=== PATIENT | female | born 1985 | race African-American/Black ===

== ENCOUNTER 2016-03-03 13:08 | Emergency (ER) | payer MEDICARE, MEDICAID ==
[~2016-03-03] VITALS: Ht 170.2 cm; Wt 100.0 kg
[~2016-03-03 13:08] MED LIST: AMLO10TA2 PO; BENT20TA PO; BUTATAB6 PO; CARV12.5 PO; DEPA500T PO; DIPH1TAB36 PO; FURO1TAB62 PO; HYDR-3366 PO; LEVE500 PO; LOMO2.5T PO; LUNE1TAB6 PO; MYCO500T PO; OMEP20TA PO; POTA-245 PO; PRED5TAB PO; PROM1SUP7 RECTAL; PROM50TA PO; TACR1 PO; TOPA100T11 PO
[2016-03-03 13:10] VITALS: BP 139/92; PULSE 85; RESP 12; TEMP 98.3; O2SAT 99
--- NOTE | 2016-03-03 15:06 | PD ---
HPI Chief Complaint: Flank/Kidney Pain Time Seen by Provider: 15:02 Travel History International Travel<30 days: No Contact w/Intl Traveler<30days: No Traveled to known affect area: No History of Present Illness HPI 30-year-old female with history of kidney transplant in 2009, migraine headaches , hypertension, lupus, presents to emergency department for evaluation. Patient states she has had right sided flank pain for the last couple of weeks. She developed a migraine headache last night and it does not seem to be going away. She has had some intermittent blurred vision today associated with it. She has also had intermittent substernal sharp chest pain today. She cannot think of any exacerbating or alleviating factors. It comes and goes and does not radiate anywhere. She has had nausea without vomiting. No shortness of breath or chest tightness. No lightheaded or dizziness. No diaphoresis. Patient has not been recently ill. She has had no fever or chills. No other symptoms to report. PFSH Past Medical History Arthritis: No Autoimmune Disease: Yes (LUPUS) Anxiety: Yes Depression: Yes Heart Rhythm Problems: No Cancer: No Cardiovascular Problems: Yes (HTN) High Cholesterol: No Chemotherapy: No Chest Pain: No Congestive Heart Failure: No Cerebrovascular Accident: Yes Diabetes: No Dialysis: Yes (HX of PRIOR TO KIDNEY TRANSPLANT 2009) Diminished Hearing: No Endocrine: No Gastrointestinal Disorders: No GERD: Yes Glaucoma: No Headaches: Yes Hepatitis: No Hiatal Hernia: No Heparin Induced Thrombocytopen: No Hypertension: Yes Immune Disorder: Yes (LUPUS) Implanted Vascular Access Dvce: Yes (fistula in LUE, R PORT infusaport) Kidney Stones: No Musculoskeletal: Yes Neurologic: Yes Psychiatric: Yes Reproductive: No Respiratory: No Immunizations Current: Yes Migraines: Yes Myocardial Infarction: No Radiation Therapy: No Seizures: Yes Sickle Cell Disease: No Thyroid Disease: No Ulcer: No PNEUMOCCOCAL Vaccine (Year): 2 ?: Not : 0 Para: 0 Miscarriage: 0 : 0 Past Surgical History Abdominal Surgery: Yes AICD: No Appendectomy: No Arteriovenous Shunt: Yes (left arm, DOESN'T WORK) Cardiac Surgery: No Cholecystectomy: Yes Ear Surgery: No Endocrine Surgery: Yes (RIGHT KIDNEY TRANSPLANT 2009) Eye Surgery: No Genitourinary Surgery: Yes (RIGHT KIDNEY TRANSPLANT 2009) Gynecologic Surgery: No Insulin Pump: No Joint Replacement: No Neurologic Surgery: No Oral Surgery: No Pacemaker: No Thoracic Surgery: No Other Surgery: Yes (FISTULA LEFT UPPER ARM) Social History Alcohol Use: No (rare) Tobacco Use: Yes Substance Use: No Allergies-Medications (Allergen,Severity, Reaction): Coded Allergies: Dilaudid (Verified Allergy, Severe, SEIZURE, 03/03/16) Levofloxacin (Verified Allergy, Severe, HIVES, 03/03/16) Motrin (Verified Allergy, Severe, KIDNEY TRANSPLANT, 03/03/16) Oxycodone (Verified Allergy, Severe, HALLUCINATIONS, 03/03/16) Penicillin (Verified Allergy, Severe, HIVES, 03/03/16) Reported Meds & Prescriptions Reported Meds & Active Scripts Active Phenergan Supp (Promethazine HCl) 25 Mg Supp 25 Mg RECTAL Q6H PRN Keppra (Levetiracetam) 500 Mg Tab 1,500 Mg PO BID 30 Days [place] (Hydrocodone-Acetaminophen) 10-325 Mg Tab 1 Tab PO Q4H PRN Reported Tylenol Pm Extra Strength (Diphenhydramine-Acetaminophen) 25-500 Mg Tab 1 Tab PO HS PRN Lomotil (Diphenoxylate-Atropine) 2.5-0.025 Mg Tab 1 Tab PO QID PRN Phenergan (Promethazine HCl) 50 Mg Tab 50 Mg PO TID PRN Pxgpfxvwtb-Nkazgatqtkqxz-Csgvaamd 50-325-40 Mg Tab 2 Tab PO Q6HR PRN Do not exceed 6 tablets/day. Amlodipine (Amlodipine Besylate) 10 Mg Tab 10 Mg PO DAILY Klor-Con M20 (Potassium Chloride Microencaps) 20 Meq Tab 20 Meq PO DAILY Topamax (Topiramate) 100 Mg Tab 100 Mg PO TID Prograf (Tacrolimus) 1 Mg Cap 3 Mg PO Q12HR Prednisone 5 Mg Tab 5 Mg PO DAILY Omeprazole 20 Mg Tab 20 Mg PO BID Mycophenolate (Mycophenolate Mofetil) 500 Mg Tab 500 Mg PO BID Lasix (Furosemide) 20 Mg Tab 20 Mg PO DAILY PRN Depakote DR (Divalproex Sodium) 500 Mg Tabdr 500 Mg PO TID Coreg (Carvedilol) 12.5 Mg Tab 12.5 Mg PO BID Bentyl (Dicyclomine HCl) 20 Mg Tab 20 Mg PO QID PRN Lunesta (Eszopiclone) 1 Mg Tab 1 Mg PO HS PRN Review of Systems Except as stated in HPI: all other systems reviewed are Neg Physical Exam Narrative GENERAL: Well-nourished female patient, ambulatory and in no acute distress SKIN: Warm and dry. HEAD: Atraumatic. Normocephalic. EYES: Pupils equal and round. EOMI. No scleral icterus. No injection or drainage. ENT: No nasal bleeding or discharge. Mucous membranes pink and moist. NECK: Trachea midline. No JVD. CARDIOVASCULAR: Regular rate and rhythm. No murmur appreciated. RESPIRATORY: No accessory muscle use. Clear to auscultation. Breath sounds equal bilaterally. GASTROINTESTINAL: Abdomen soft, non-tender, nondistended. Hepatic and splenic margins not palpable. MUSCULOSKELETAL: No obvious deformities. No clubbing. No cyanosis. No edema. NEUROLOGICAL: Awake and alert. No obvious cranial nerve deficits. Motor grossly within normal limits. Normal speech. PSYCHIATRIC: Appropriate mood and affect; insight and judgment normal. Data Data Last Documented VS Vital Signs Date Time Temp Pulse Resp B/P Pulse Ox O2 Delivery O2 Flow Rate FiO2 03/03/16 13:10 98.3 85 12 139/92 99 Room Air Orders Electrocardiogram (03/03/16 15:49) Ckmb (Isoenzyme) Profile (03/03/16 15:49) Complete Blood Count With Diff (03/03/16 15:49) Comprehensive Metabolic Panel (03/03/16 15:49) Magnesium (Mg) (03/03/16 15:49) Prothrombin Time / Inr (Pt) (03/03/16 15:49) Act Partial Throm Time (Ptt) (03/03/16 15:49) Troponin I (03/03/16 15:49) Chest, Single Ap (03/03/16 15:49) Urinalysis - C+S If Indicated (03/03/16 15:49) Sodium Chlor 0.9% 1000 Ml Inj (Ns 1000 M (03/03/16 17:00) Acetaminophen (Tylenol) (03/03/16 17:00) Labs Laboratory Tests Test 03/03/16 03/03/16 16:06 16:40 Urine Color YELLOW Urine Turbidity HAZY Urine pH 7.5 Urine Specific [place] 1.020 Urine Protein TRACE mg/dL Urine Glucose (UA) NEG mg/dL Urine Ketones NEG mg/dL Urine Occult Blood NEG Urine Nitrite NEG Urine Bilirubin NEG Urine Urobilinogen LESS THAN 2.0 MG/DL Urine Leukocyte Esterase NEG Urine WBC 4 /hpf Urine Squamous Epithelial 5 /hpf Cells Urine Amorphous Sediment OCC Urine Mucus FEW /lpf Microscopic Urinalysis Comment CULT NOT INDICATED White Blood Count 6.1 TH/MM3 Red Blood Count 4.09 MIL/MM3 Hemoglobin 11.6 GM/DL Hematocrit 36.2 % Mean Corpuscular Volume 88.4 FL Mean Corpuscular Hemoglobin 28.4 PG Mean Corpuscular Hemoglobin 32.2 % Concent Red Cell Distribution Width 15.5 % Platelet Count 219 TH/MM3 Mean Platelet Volume 7.8 FL Neutrophils (%) (Auto) 61.2 % Lymphocytes (%) (Auto) 28.8 % Monocytes (%) (Auto) 9.6 % Eosinophils (%) (Auto) 0.3 % Basophils (%) (Auto) 0.1 % Neutrophils # (Auto) 3.8 TH/MM3 Lymphocytes # (Auto) 1.8 TH/MM3 Monocytes # (Auto) 0.6 TH/MM3 Eosinophils # (Auto) 0.0 TH/MM3 Basophils # (Auto) 0.0 TH/MM3 CBC Comment DIFF FINAL Differential Comment Prothrombin Time 11.7 SEC Prothromb Time International 1.1 RATIO Ratio Activated Partial 29.2 SEC Thromboplast Time Sodium Level 136 MEQ/L Potassium Level 3.9 MEQ/L Chloride Level 106 MEQ/L Carbon Dioxide Level 22.9 MEQ/L Anion Gap 7 MEQ/L Blood Urea Nitrogen 16 MG/DL Creatinine 0.90 MG/DL Estimat Glomerular Filtration 90 ML/MIN Rate Random Glucose 89 MG/DL Calcium Level 8.5 MG/DL Magnesium Level 1.5 MG/DL Total Bilirubin 0.2 MG/DL Aspartate Amino Transf 8 U/L (AST/SGOT) Alanine Aminotransferase 21 U/L (ALT/SGPT) Alkaline Phosphatase 71 U/L Total Creatine Kinase 73 U/L Troponin I LESS THAN 0.02 NG/ML Total Protein 7.8 GM/DL Albumin 3.7 GM/DL [facility] Medical Decision Making Medical Screen Exam Complete: Yes Emergency Medical Condition: Yes Medical Record Reviewed: Yes Differential Diagnosis UTI versus renal calculi versus electrolyte abnormality versus migraine headache versus ACS Narrative Course 30 year-old female presents to emergency department for evaluation. Patient appears without distress. Workup is initiated in triage. Once he medical bed becomes available, patient will be transferred and care assumed by that provider. 1740 CBC and CMP are without acute concern. Troponin is less than 0.02. Urinalysis is unremarkable. I discussed the patient with my attending physician Dr. Albright. Patient will be discharged to follow-up with her primary care provider. Patient is refusing pain medication here stating that she takes Lortab 10 at home. She is encouraged to take her Lortab 10 as needed for pain once she gets home. Diagnosis Primary Impression: Headache Qualified Code: R51 - Nonintractable headache, unspecified chronicity pattern , unspecified headache type Additional Impressions: Right flank pain Epigastric pain Referrals: Primary Care Physician Patient Instructions: Chest Wall Pain (ED), General Instructions, Migraine Headache (ED) Departure Forms: Tests/Procedures, Work Release Enter return to work date: Mar 06, 2016 Additional Instructions: Rest Maintain adequate oral hydration Continue pain medication as already prescribed Return immediately to the emergency department with any acute worsening of symptoms Med/Other Pt SpecificInfo: No Change to Meds Disposition: 01 DISCHARGE HOME Condition: Stable Cheryl Warren Mar 03, 2016 15:06
--- NOTE | 2016-03-03 16:25 | RADRPT ---
EXAM DATE/TIME: 03/03/2016 16:13 [facility] COMPARISON: CHEST SINGLE AP, February 10, 2016, 22:29. INDICATIONS : Chest pain. MEDICAL HISTORY : Lupus. SURGICAL HISTORY : Port placement. Right kidney transplant. ENCOUNTER: Initial ACUITY: 2 days PAIN SCORE: 4/10 LOCATION: Bilateral chest FINDINGS: A single view of the chest demonstrates the lungs to be symmetrically aerated without evidence of mas s, infiltrate or effusion. The cardiomediastinal contours are unremarkable. Osseous structures are intact. CONCLUSION: No acute disease. No significant change has occurred. Pedro Marques MD on March 03, 2016 at 16:23 Board Certified Radiologist. This report was verified electronically.
[2016-03-03 16:48] LABS: BLOOD, URINE NEG (NEG); COMMENT (UR) CULT NOT INDICATED; CULTURE IF INDICATED CULT NOT INDICATED; GLUCOSE,URINE NEG (NEG); KETONE, URINE NEG (NEG); MUCUS URINE FEW /lpf (OCC); NITRITE,URINE NEG (NEG); PH, URINE 7.5 (5.0-8.5); SQUAMOUS EPITHELIAL CELL URINE 5 /hpf (0-5); URINE COLOR YELLOW (YELLW/STRAW)
[2016-03-03 16:53] LABS: WHITE BLOOD COUNT 6.1 TH/MM3 (4.0-11.0)
[2016-03-03 16:54] LABS: AUTOMATED NEUTROPHIL # 3.8 TH/MM3 (1.8-7.7); BASOPHIL % 0.1 % (0.0-2.0); EOSINOPHIL % 0.3 % (0.0-4.0); HEMATOCRIT 36.2 % (35.0-46.0); HEMO FLAGS DIFF FINAL; LYMPH % 28.8 % (9.0-44.0); LYMPHOCYTE # 1.8 TH/MM3 (1.0-4.8); MEAN CELL VOLUME 88.4 FL (80.0-100.0); MEAN CORPUSCULAR HEMOGLOBIN 28.4 PG (27.0-34.0); MEAN CORPUSCULAR HGB CONC 32.2 % (32.0-36.0); MONO % 9.6 % (0.0-8.0); NEUT % 61.2 % (16.0-70.0); PLATELET COUNT 219 TH/MM3 (150-450); RED BLOOD COUNT 4.09 MIL/MM3 (4.00-5.30); RED CELL DISTRIBUTION WIDTH 15.5 % (11.6-17.2)
[2016-03-03] MEDS ORDERED: SODIUM CHLOR 0.9% 1000 ML INJ 1,000 ML IV ONE (17:00)
[2016-03-03] MEDS ORDERED: ACETAMINOPHEN 500 MG CPLT PO ONE (17:00)
[2016-03-03 17:06] LABS: APTT (PATIENT) 29.2 SEC (24.3-30.1); INTERNATIONAL NORMALIZED RATIO 1.1 RATIO; PROTHROMBIN TIME - PATIENT 11.7 SEC (9.8-11.6)
[2016-03-03 17:14] LABS: ALT (GPT) 21 U/L (10-53); ANION GAP 7 MEQ/L (5-15); AST (GOT) 8 U/L (15-37); BICARBONATE 22.9 MEQ/L (21.0-32.0); BLOOD UREA NITROGEN 16 MG/DL (7-18); CHLORIDE 106 MEQ/L (98-107); GLOMERULAR FILTRATION RATE 90 ML/MIN (>89); MAGNESIUM 1.5 MG/DL (1.5-2.5); POTASSIUM 3.9 MEQ/L (3.5-5.1); SODIUM (NA) 136 MEQ/L (136-145)
[2016-03-03 17:18] LABS: ALKALINE PHOSPHATASE 71 U/L (45-117); TOTAL BILIRUBIN ADULT 0.2 MG/DL (0.2-1.0)
[2016-03-03 17:24] LABS: CREATINE KINASE 73 U/L (26-192)
--- NOTE | 2016-03-04 20:36 | EKG ---
Date Performed: 03/03/2016 Time Performed: 14:54:47 PTAGE: 30 years EKG: Sinus rhythm BORDERLINE LEFT AXIS DEVIATION RIGHT BUNDLE BRANCH BLOCK MINIMAL VOLTAGE CRITERIA FOR LVH, CONSIDER NORMAL VARIANT ABNORMAL ECG PREVIOUS TRACING : 01/18/2016 03.33 Compared to prior tracing no significant change DOCTOR: Merary Downing Interpretating Date/Time 03/04/2016 20:36:04
== END 2016-03-03 17:57 | disposition home or self-care (01) ==
LOC: NETRI 13:08
DX: R51 Headache (principal); R10.31 Right lower quadrant pain; R10.13 Epigastric pain; I45.10 Unspecified right bundle-branch block; R07.9 Chest pain, unspecified; M32.9 Systemic lupus erythematosus, unspecified; I10 Essential (primary) hypertension; K21.9 Gastro-esophageal reflux disease without esophagitis; Z94.0 Kidney transplant status; Z72.0 Tobacco use; Z86.73 Personal history of transient ischemic attack (TIA), and cerebral infarction without residual deficits
CPT/HCPCS: 71010; 80053; 81001; 82550; 83735; 84484; 85025; 85610; 85730; 93005; 99284; J7030

== ENCOUNTER 2016-05-20 20:01 | Inpatient (IN) | payer MEDICARE, MEDICAID ==
[~2016-05-20] VITALS: Ht 170.2 cm; Wt 106.6 kg
[2016-05-20 20:04] VITALS: BP 137/89; PULSE 104; RESP 18; TEMP 98.4; O2SAT 95
[2016-05-20] MEDS ORDERED: SODIUM CHLOR 0.9% 1000 ML INJ 1,000 ML IV SCH (20:04)
[2016-05-20 20:15] VITALS: RESP 18; O2SAT 90
[2016-05-20] MEDS ORDERED: SODIUM CHLORIDE 0.9% FLUSH 10 ML FLUSH IVF PRN (20:15)
[2016-05-20] MEDS ORDERED: FOSPHENYTOIN INJ 1,000 MGPE in SODIUM CHLORIDE 0.9% INJ 50 ML IV ONE (20:15)
[2016-05-20 20:44] LABS: AUTOMATED NEUTROPHIL # 5.8 TH/MM3 (1.8-7.7); BASOPHIL % 0.2 % (0.0-2.0); EOSINOPHIL % 0.2 % (0.0-4.0); HEMATOCRIT 36.8 % (35.0-46.0); HEMO FLAGS DIFF FINAL; LYMPHOCYTE # 1.5 TH/MM3 (1.0-4.8); MEAN CORPUSCULAR HEMOGLOBIN 28.9 PG (27.0-34.0); MEAN CORPUSCULAR HGB CONC 32.5 % (32.0-36.0); NEUT % 71.6 % (16.0-70.0); PLATELET COUNT 218 TH/MM3 (150-450); RED BLOOD COUNT 4.14 MIL/MM3 (4.00-5.30); RED CELL DISTRIBUTION WIDTH 16.2 % (11.6-17.2); WHITE BLOOD COUNT 8.1 TH/MM3 (4.0-11.0)
[2016-05-20 20:55] LABS: INTERNATIONAL NORMALIZED RATIO 1.1 RATIO; PROTHROMBIN TIME - PATIENT 12.4 SEC (9.8-11.6)
[2016-05-20 21:15] LABS: ANION GAP 11 MEQ/L (5-15); AST (GOT) 13 U/L (15-37); BICARBONATE 21.2 MEQ/L (21.0-32.0); BLOOD UREA NITROGEN 17 MG/DL (7-18); CHLORIDE 108 MEQ/L (98-107); GLOMERULAR FILTRATION RATE 70 ML/MIN (>89); POTASSIUM 3.6 MEQ/L (3.5-5.1); SODIUM (NA) 140 MEQ/L (136-145)
--- NOTE | 2016-05-20 21:15 | PD ---
HPI Chief Complaint: Seizure Time Seen by Provider: 20:04 Travel History International Travel<30 days: No Contact w/Intl Traveler<30days: No Traveled to known affect area: No History of Present Illness HPI 30-year-old female with a history of seizures presents emergency department for evaluation of seizures. Apparently the patient first had a seizure approximately 45 minutes ago and had several seizures quickly thereafter. On EMS arrival she was seizing for approximately 5 minutes she was given a total of 4 mg of Ativan and I/O needle was started in her left tib-fib. She is also given etomidate in preparation for intubation but after etomidate she stopped seizing and intubation was held. An NPA was passed and she was placed on nonrebreather. Patient on review of records has Depakote and Keppra prescribed. She has a baggy with her medicines with her and does not have those with her. According to review records she also has a history of renal transplant. Part was observed in her right chest wall. On arrival the patient is somnolent and postictal GCS is ([id number])=8 improving slowly. PFSH Past Medical History Arthritis: No Autoimmune Disease: Yes (LUPUS) Anxiety: Yes Depression: Yes Heart Rhythm Problems: No Cancer: No Cardiovascular Problems: Yes (HTN) High Cholesterol: No Chemotherapy: No Chest Pain: No Congestive Heart Failure: No Cerebrovascular Accident: Yes Diabetes: No Dialysis: Yes (HX of PRIOR TO KIDNEY TRANSPLANT 2009) Diminished Hearing: No Endocrine: No Gastrointestinal Disorders: No GERD: Yes Glaucoma: No Headaches: Yes Hepatitis: No Hiatal Hernia: No Heparin Induced Thrombocytopen: No Hypertension: Yes Immune Disorder: Yes (LUPUS) Implanted Vascular Access Dvce: Yes (fistula in LUE, R PORT infusaport) Kidney Stones: No Musculoskeletal: Yes Neurologic: Yes Psychiatric: Yes Reproductive: No Respiratory: No Immunizations Current: Yes Migraines: Yes Myocardial Infarction: No Radiation Therapy: No Seizures: Yes Sickle Cell Disease: No Thyroid Disease: No Ulcer: No PNEUMOCCOCAL Vaccine (Year): 2 : 0 Para: 0 Miscarriage: 0 : 0 Past Surgical History Abdominal Surgery: Yes AICD: No Appendectomy: No Arteriovenous Shunt: Yes (left arm, DOESN'T WORK) Cardiac Surgery: No Cholecystectomy: Yes Ear Surgery: No Endocrine Surgery: Yes (RIGHT KIDNEY TRANSPLANT 2009) Eye Surgery: No Genitourinary Surgery: Yes (RIGHT KIDNEY TRANSPLANT 2009) Gynecologic Surgery: No Insulin Pump: No Joint Replacement: No Neurologic Surgery: No Oral Surgery: No Pacemaker: No Thoracic Surgery: No Other Surgery: Yes (FISTULA LEFT UPPER ARM) Social History Alcohol Use: No (rare) Tobacco Use: Yes Substance Use: No Allergies-Medications (Allergen,Severity, Reaction): Coded Allergies: Dilaudid (Verified Allergy, Severe, SEIZURE, 05/20/16) Levofloxacin (Verified Allergy, Severe, HIVES, 05/20/16) Motrin (Verified Allergy, Severe, KIDNEY TRANSPLANT, 05/20/16) Oxycodone (Verified Allergy, Severe, HALLUCINATIONS, 05/20/16) Penicillin (Verified Allergy, Severe, HIVES, 05/20/16) Reported Meds & Prescriptions Reported Meds & Active Scripts Active Phenergan Supp (Promethazine HCl) 25 Mg Supp 25 Mg RECTAL Q6H PRN Keppra (Levetiracetam) 500 Mg Tab 1,500 Mg PO BID 30 Days [place] (Hydrocodone-Acetaminophen) 10-325 Mg Tab 1 Tab PO Q4H PRN Reported Tylenol Pm Extra Strength (Diphenhydramine-Acetaminophen) 25-500 Mg Tab 1 Tab PO HS PRN Lomotil (Diphenoxylate-Atropine) 2.5-0.025 Mg Tab 1 Tab PO QID PRN Phenergan (Promethazine HCl) 50 Mg Tab 50 Mg PO TID PRN Mrzwljkgem-Uvqllaioofavf-Sjxfmotx 50-325-40 Mg Tab 2 Tab PO Q6HR PRN Do not exceed 6 tablets/day. Amlodipine (Amlodipine Besylate) 10 Mg Tab 10 Mg PO DAILY Klor-Con M20 (Potassium Chloride Microencaps) 20 Meq Tab 20 Meq PO DAILY Topamax (Topiramate) 100 Mg Tab 100 Mg PO TID Prograf (Tacrolimus) 1 Mg Cap 3 Mg PO Q12HR Prednisone 5 Mg Tab 5 Mg PO DAILY Omeprazole 20 Mg Tab 20 Mg PO BID Mycophenolate (Mycophenolate Mofetil) 500 Mg Tab 500 Mg PO BID Lasix (Furosemide) 20 Mg Tab 20 Mg PO DAILY PRN Depakote DR (Divalproex Sodium) 500 Mg Tabdr 500 Mg PO TID Coreg (Carvedilol) 12.5 Mg Tab 12.5 Mg PO BID Bentyl (Dicyclomine HCl) 20 Mg Tab 20 Mg PO QID PRN Lunesta (Eszopiclone) 1 Mg Tab 1 Mg PO HS PRN Review of Systems ROS Limitations: Altered Mental Status Physical Exam Exam Limitations: Altered Mental Status Narrative GENERAL: WD/WN morbidly obese, somnolent, sonorous, likely postictal. SKIN: Warm and dry. Left-sided IO needle in place. No infiltrates seen. Compartment is soft. HEAD: Atraumatic. Normocephalic. EYES: Pupils equal and round. No scleral icterus. No injection or drainage. ENT: No nasal bleeding or discharge. Mucous membranes pink and moist. NECK: Trachea midline. No JVD. CARDIOVASCULAR: Regular rate and rhythm. RESPIRATORY: No accessory muscle use. Clear to auscultation. Breath sounds equal bilaterally. GASTROINTESTINAL: Abdomen soft, non-tender, nondistended. Hepatic and splenic margins not palpable. MUSCULOSKELETAL: Extremities without clubbing, cyanosis, or edema. No obvious deformities. NEUROLOGICAL: GCS of 8 on arrival, sonorous respirations. No seizure activity seen. PSYCHIATRIC: Unable to obtain Data Data Last Documented VS Vital Signs Date Time Temp Pulse Resp B/P Pulse Ox O2 Delivery O2 Flow Rate FiO2 05/20/16 22:29 91 16 153/70 98 Nasal Cannula 2 05/20/16 20:04 98.4 Orders Electrocardiogram (05/20/16 20:04) Ammonia (05/20/16 20:04) Complete Blood Count With Diff (05/20/16 20:04) Comprehensive Metabolic Panel (05/20/16 20:04) Creatine Kinase (Cpk) (05/20/16 20:04) Prothrombin Time / Inr (Pt) (05/20/16 20:04) Troponin I (05/20/16 20:04) Thyroid Stimulating Hormone (05/20/16 20:04) Urinalysis - C+S If Indicated (05/20/16 20:04) Chest, Single Ap (05/20/16 20:04) Ct Brain W/O Iv Contrast(Rout) (05/20/16 20:04) Blood Glucose (05/20/16 20:04) Ecg Monitoring (05/20/16 20:04) Iv Access Insert/Monitor (05/20/16 20:04) Oximetry (05/20/16 20:04) Sodium Chloride 0.9% Flush (Ns Flush) (05/20/16 20:15) Sodium Chlor 0.9% 1000 Ml Inj (Ns 1000 M (05/20/16 20:04) Drug Screen, Random Urine (05/20/16 20:04) Alcohol (Ethanol) (05/20/16 20:04) Salicylates (Aspirin) (05/20/16 20:04) Tylenol (Acetaminophen) (05/20/16 20:04) Urinary Catheter Management RENETTA.Q8H (05/20/16 20:04) Ed Urine Pregnancytest Poc (05/20/16 20:04) Valproic Acid (Depakene) (05/20/16 20:08) Fosphenytoin Inj (Cerebyx Inj) (05/20/16 20:15) Diet Npo (05/21/16 Breakfast) Vital Signs (Adult) RENETTA.Q4H (05/20/16 22:46) Neuro Checks . ORDERED (05/20/16 22:46) ^ Seizure Precautions (05/20/16 22:46) Lorazepam Inj (Ativan Inj) (05/20/16 23:00) Sodium Chlor 0.9% 1000 Ml Inj (Ns 1000 M (05/20/16 23:00) Consult Neurology (05/20/16 ) Basic Metabolic Panel (Bmp) (05/21/16 06:00) Admit Order (Ed Use Only) (05/20/16 ) Labs Laboratory Tests Test 05/20/16 05/20/16 20:20 21:40 White Blood Count 8.1 TH/MM3 Red Blood Count 4.14 MIL/MM3 Hemoglobin 12.0 GM/DL Hematocrit 36.8 % Mean Corpuscular Volume 89.0 FL Mean Corpuscular Hemoglobin 28.9 PG Mean Corpuscular Hemoglobin 32.5 % Concent Red Cell Distribution Width 16.2 % Platelet Count 218 TH/MM3 Mean Platelet Volume 8.0 FL Neutrophils (%) (Auto) 71.6 % Lymphocytes (%) (Auto) 18.0 % Monocytes (%) (Auto) 10.0 % Eosinophils (%) (Auto) 0.2 % Basophils (%) (Auto) 0.2 % Neutrophils # (Auto) 5.8 TH/MM3 Lymphocytes # (Auto) 1.5 TH/MM3 Monocytes # (Auto) 0.8 TH/MM3 Eosinophils # (Auto) 0.0 TH/MM3 Basophils # (Auto) 0.0 TH/MM3 CBC Comment DIFF FINAL Differential Comment Prothrombin Time 12.4 SEC Prothromb Time International 1.1 RATIO Ratio Sodium Level 140 MEQ/L Potassium Level 3.6 MEQ/L Chloride Level 108 MEQ/L Carbon Dioxide Level 21.2 MEQ/L Anion Gap 11 MEQ/L Blood Urea Nitrogen 17 MG/DL Creatinine 1.12 MG/DL Estimat Glomerular Filtration 70 ML/MIN Rate Random Glucose 125 MG/DL Calcium Level 8.4 MG/DL Total Bilirubin 0.3 MG/DL Aspartate Amino Transf 13 U/L (AST/SGOT) Alanine Aminotransferase 25 U/L (ALT/SGPT) Alkaline Phosphatase 82 U/L Ammonia 55 MCMOL/L Total Creatine Kinase 87 U/L Troponin I LESS THAN 0.02 NG/ML Total Protein 7.7 GM/DL Albumin 3.6 GM/DL Thyroid Stimulating Hormone 4.110 uIU/ML 3rd Gen Salicylates Level LESS THAN 1.7 MG/DL Acetaminophen Level LESS THAN 2.0 MCG/ML Valproic Acid (Depakene) Level 36 MCG/ML Ethyl Alcohol Level LESS THAN 3 MG/DL Urine Color LIGHT-YELLOW Urine Turbidity CLEAR Urine pH 6.5 Urine Specific [place] 1.012 Urine Protein TRACE mg/dL Urine Glucose (UA) NEG mg/dL Urine Ketones NEG mg/dL Urine Occult Blood TRACE Urine Nitrite NEG Urine Bilirubin NEG Urine Urobilinogen LESS THAN 2.0 MG/DL Urine Leukocyte Esterase NEG Urine RBC LESS THAN 1 /hpf Urine WBC LESS THAN 1 /hpf Urine Squamous Epithelial <1 /hpf Cells Urine Mucus FEW /lpf Microscopic Urinalysis Comment CATH-CULT NOT IND Urine Opiates Screen POS Urine Barbiturates Screen POS Urine Amphetamines Screen NEG Urine Benzodiazepines Screen NEG Urine Cocaine Screen NEG Urine Cannabinoids Screen NEG MDM Medical Decision Making Medical Screen Exam Complete: Yes Emergency Medical Condition: Yes Differential Diagnosis Status epilepticus, seizure disorder, lecture light abnormality, head injury, head bleed. Narrative Course Patient roomed in the emergency department, she was given fosphenytoin 1 g. She had no further seizure activity in the emergency department or mental status gradually improved. She did admit to nursing that she has not been taking her into epileptic medicines. Basic labs are negative, CT head negative. She was discussed with Dr. Marin, ultimately we agreed the patient should be upgraded to the ICU. Procedures Procedure Narrative Aggregate critical care time was 30 minutes. Time to perform other separately billable procedures was not included in the critical care time. My time did not include minutes spent treating any other patients simultaneously or on activities that did not directly contribute to the patient's treatment. The services I provided to this patient were to treat and/or prevent clinically significant deterioration that could result in: , disability, organ failure. I provided critical care services requiring my management, as noted below: Chart data review, documentation time, medication orders and management, vital sign assessments/reviewing monitor data, ordering and reviewing lab tests, ordering and interpreting/reviewing x-rays and diagnostic studies, care of the patient and discussion of the patient with the admitting physicians. Multiple reassessments the bedside by me. Diagnosis Primary Impression: Status epilepticus Admitting Information Admitting Physician Requests: Admit Condition: Adis Medina MD May 20, 2016 21:15
[2016-05-20 21:17] VITALS: RESP 18; O2SAT 99
[2016-05-20 21:20] VITALS: BP 166/72; PULSE 101; PULSE 81; RESP 18; O2SAT 99
--- NOTE | 2016-05-20 21:21 | RADRPT ---
EXAM DATE/TIME: 05/20/2016 20:08 [facility] COMPARISON: CHEST SINGLE AP, March 03, 2016, 16:13. INDICATIONS : Syncopal episode. MEDICAL HISTORY : Hypertension. Cerebrovascular disease. Seizures.cardiovascular disease. SURGICAL HISTORY : Cholecystectomy. Right kidney transplant. Pacemaker. ENCOUNTER: Initial ACUITY: 1 day PAIN SCORE: Non-responsive. LOCATION: Bilateral chest FINDINGS: Right Ohssen-m-Ylia is in superior vena cava. Mild scoliosis. No focal consolidation or significant e ffusion. Heart size upper limits normal. Elevated left hemidiaphragm. CONCLUSION: 1. Xjbbjv-f-Yxps tip in superior vena cava. Elevated left hemidiaphragm. No acute findings compared w ith February 2016. Fan Julian MD on May 20, 2016 at 21:18 Board Certified Radiologist. This report was verified electronically.
[2016-05-20 21:26] LABS: ACETAMINOPHEN LESS THAN 2.0 MCG/ML (10.0-30.0); ALKALINE PHOSPHATASE 82 U/L (45-117); ALT (GPT) 25 U/L (10-53); TOTAL BILIRUBIN ADULT 0.3 MG/DL (0.2-1.0)
[2016-05-20 21:27] LABS: CREATINE KINASE 87 U/L (26-192)
[2016-05-20 22:00] LABS: AMPHETAMINE, URINE NEG (NEG); BARBITURATES, URINE POS (NEG); COCAINE, URINE NEG (NEG)
[2016-05-20 22:01] LABS: BLOOD, URINE TRACE (NEG); COMMENT (UR) CATH-CULT NOT IND; CULTURE IF INDICATED CATH CULTURE NOT IND; GLUCOSE,URINE NEG (NEG); KETONE, URINE NEG (NEG); MUCUS URINE FEW /lpf (OCC); NITRITE,URINE NEG (NEG); PH, URINE 6.5 (5.0-8.5); SQUAMOUS EPITHELIAL CELL URINE <1 /hpf (0-5); URINE COLOR LIGHT-YELLOW (YELLW/STRAW)
[2016-05-20 22:29] VITALS: BP 153/70; PULSE 81; PULSE 91; RESP 16; O2SAT 98
--- NOTE | 2016-05-20 22:33 | RADRPT ---
EXAM DATE/TIME: 05/20/2016 22:00 [facility] COMPARISON: No previous studies available for comparison. INDICATIONS : Continuos seizures. RADIATION DOSE: 62.69 CTDIvol (mGy) MEDICAL HISTORY : Cerebrovascular disease. Seizures. Lupus. SURGICAL HISTORY : Cholecystectomy. renal disease ENCOUNTER: Initial ACUITY: 1 day PAIN SCALE: 5/10 LOCATION: cranial TECHNIQUE: Multiple contiguous axial images were obtained of the head. Using automated exposure control and adj ustment of the mA and/or kV according to patient size, radiation dose was kept as low as reasonably a chievable to obtain optimal diagnostic quality images. FINDINGS: CEREBRUM: The ventricles are normal for age. No evidence of midline shift, mass lesion, hemorrhage or acute in farction. No extra-axial fluid collections are seen. POSTERIOR FOSSA: The cerebellum and brainstem are intact. The 4th ventricle is midline. The cerebellopontine angle i s unremarkable. EXTRACRANIAL: The visualized portion of the orbits is intact. SKULL: The calvaria is intact. No evidence of skull fracture. CONCLUSION: 1. No acute findings. No significant change from December 2015. Fan Julian MD on May 20, 2016 at 22:28 Board Certified Radiologist. This report was verified electronically.
[2016-05-20] MEDS ORDERED: LORazepam 2 MG/ML VIAL IV PUSH PRN (23:00)
[2016-05-20] MEDS: SODIUM CHLOR 0.9% 1000 ML INJ 1,000 ML IV SCH (23:20)
[2016-05-21] VITALS (13 sets, daily range): BP systolic 131–163; BP diastolic 68–94; PULSE 81–116; RESP 16–28; TEMP 98.2–101.9; O2SAT 96–100
--- NOTE | 2016-05-21 04:45 | HHI.HP ---
[facility] Service [facility] Primary Care Physician Krzysztof Galvez Mai, MD Admission Diagnosis Status Epileticus Diagnoses: (1) Status epilepticus Chief Complaint: Prolonged seizure activity Travel History International Travel<30 Days: No Contact w/Intl Traveler <30 Da: No Traveled to Known Affected Are: No History of Present Illness Ms. Gupta is a 30-year-old female with past medical history of hypertension, end-stage renal disease status post right renal transplant in 2009, seizure disorder, lupus, and migraine headaches who presented to the emergency room on with status epilepticus. According to the emergency room physician and RN, the patient had 5 minutes of seizure activity that was treated with 4 mg of Ativan IV/IM without resolution. The patient was given etomidate in preparation for intubation in the seizure activity resolved. Intubation was not required. Patient is seen in the emergency room. She is post ictal and unable to participate in medical history. She is not following commands. . Review of Systems ROS Limitations: Altered Mental Status (postictal and unable to participate in history taking) Past Family Social History Past Medical History Unable to obtain from patient given somnolence and post ictal state: Taken from medical record Systemic lupus erythematosus Anxiety/depression Hypertension End-stage renal disease status post renal transplant 2010 Migraine headaches Seizure disorder . Past Surgical History Unable to obtain from patient given somnolence and post ictal state: Taken from medical record: Previous right renal transplant 2010 Previous fistula in left upper extremity Cholecystectomy . Reported Medications Reported Meds & Active Scripts Active Phenergan Supp (Promethazine HCl) 25 Mg Supp 25 Mg RECTAL Q6H PRN Keppra (Levetiracetam) 500 Mg Tab 1,500 Mg PO BID 30 Days [place] (Hydrocodone-Acetaminophen) 10-325 Mg Tab 1 Tab PO Q4H PRN Reported Tylenol Pm Extra Strength (Diphenhydramine-Acetaminophen) 25-500 Mg Tab 1 Tab PO HS PRN Lomotil (Diphenoxylate-Atropine) 2.5-0.025 Mg Tab 1 Tab PO QID PRN Phenergan (Promethazine HCl) 50 Mg Tab 50 Mg PO TID PRN Erjgfpwwfo-Tvmdghefbbyzt-Unemxale 50-325-40 Mg Tab 2 Tab PO Q6HR PRN Do not exceed 6 tablets/day. Amlodipine (Amlodipine Besylate) 10 Mg Tab 10 Mg PO DAILY Klor-Con M20 (Potassium Chloride Microencaps) 20 Meq Tab 20 Meq PO DAILY Topamax (Topiramate) 100 Mg Tab 100 Mg PO TID Prograf (Tacrolimus) 1 Mg Cap 3 Mg PO Q12HR Prednisone 5 Mg Tab 5 Mg PO DAILY Omeprazole 20 Mg Tab 20 Mg PO BID Mycophenolate (Mycophenolate Mofetil) 500 Mg Tab 500 Mg PO BID Lasix (Furosemide) 20 Mg Tab 20 Mg PO DAILY PRN Depakote DR (Divalproex Sodium) 500 Mg Tabdr 500 Mg PO TID Coreg (Carvedilol) 12.5 Mg Tab 12.5 Mg PO BID Bentyl (Dicyclomine HCl) 20 Mg Tab 20 Mg PO QID PRN Lunesta (Eszopiclone) 1 Mg Tab 1 Mg PO HS PRN . Allergies: Coded Allergies: Dilaudid (Verified Allergy, Severe, SEIZURE, 05/20/16) Levofloxacin (Verified Allergy, Severe, HIVES, 05/20/16) Motrin (Verified Allergy, Severe, KIDNEY TRANSPLANT, 05/20/16) Oxycodone (Verified Allergy, Severe, HALLUCINATIONS, 05/20/16) Penicillin (Verified Allergy, Severe, HIVES, 05/20/16) Active Ordered Medications Current Medications Sodium Chloride 2 ml 2 ml UNSCH PRN IVF FLUSH AFTER USING IV ACCESS Last administered on 05/20/16 21:07; Start 05/20/16 at 20:15 Sodium Chloride 1,000 ml @ 1,000 mls/hr Q1H IV Last administered on 05/20/16 21:03; Start 05/20/16 at 20:04; Stop 05/20/16 at 21:03; Status DC Fosphenytoin Sodium/Sodium Chloride (Cerebyx Inj/NS Inj) 70 ml @ 280 mls/hr ONCE ONCE IV Last administered on 05/20/16 21:07; Start 05/20/16 at 20:15; Stop 05/20/16 at 20:29; Status DC Lorazepam 1 mg 1 mg Q15M PRN IV PUSH SEIZURE; Start 05/20/16 at 23:00 Sodium Chloride (NS 1000 ml Inj) 1,000 ml @ 100 mls/hr Q10H IV Last administered on 05/20/16t 23:20; Start 05/20/16 at 23:00 . Family History Unable to obtain from patient given somnolence and post ictal state: . Social History Unable to obtain from patient given somnolence and post ictal state: . Physical Exam Vital Signs Vital Signs Date Time Temp Pulse Resp B/P Pulse Ox O2 Delivery O2 Flow Rate FiO2 05/21/16 00:30 98.7 94 16 163/68 100 Nasal Cannula 2 05/20/16 22:29 91 16 153/70 98 Nasal Cannula 2 05/20/16 21:20 101 18 166/72 99 Nasal Cannula 2 05/20/16 21:17 18 99 Nasal Cannula 2 05/20/16 20:15 90 18 92 Room Air 05/20/16 20:15 18 90 Room Air 05/20/16 20:04 98.4 104 18 137/89 95 Physical Exam GENERAL: This is a post-ictal female patient, in no apparent distress. SKIN: No rashes, ecchymoses or lesions. Cool and dry. HEAD: Atraumatic. Normocephalic. EYES: No scleral icterus. No injection or drainage. ENT: Nose without bleeding, purulent drainage. NECK: Trachea midline. No JVD or lymphadenopathy. CARDIOVASCULAR: Regular rate and rhythm without murmurs, gallops, or rubs. RESPIRATORY: Clear to auscultation. Breath sounds equal bilaterally. No wheezes , rales, or rhonchi. GASTROINTESTINAL: Abdomen soft, non-tender, nondistended. No guarding. MUSCULOSKELETAL: Extremities without clubbing, cyanosis, or edema. NEUROLOGICAL: Somnolent; does not follow commands; post-ictal . Laboratory Laboratory Tests Test 05/20/16 05/20/16 20:20 21:40 White Blood Count 8.1 Red Blood Count 4.14 Hemoglobin 12.0 Hematocrit 36.8 Mean Corpuscular Volume 89.0 Mean Corpuscular Hemoglobin 28.9 Mean Corpuscular Hemoglobin 32.5 Concent Red Cell Distribution Width 16.2 Platelet Count 218 Mean Platelet Volume 8.0 Neutrophils (%) (Auto) 71.6 Lymphocytes (%) (Auto) 18.0 Monocytes (%) (Auto) 10.0 Eosinophils (%) (Auto) 0.2 Basophils (%) (Auto) 0.2 Neutrophils # (Auto) 5.8 Lymphocytes # (Auto) 1.5 Monocytes # (Auto) 0.8 Eosinophils # (Auto) 0.0 Basophils # (Auto) 0.0 CBC Comment DIFF FINAL Differential Comment Prothrombin Time 12.4 Prothromb Time International 1.1 Ratio Sodium Level 140 Potassium Level 3.6 Chloride Level 108 Carbon Dioxide Level 21.2 Anion Gap 11 Blood Urea Nitrogen 17 Creatinine 1.12 Estimat Glomerular Filtration 70 Rate Random Glucose 125 Calcium Level 8.4 Total Bilirubin 0.3 Aspartate Amino Transf 13 (AST/SGOT) Alanine Aminotransferase 25 (ALT/SGPT) Alkaline Phosphatase 82 Ammonia 55 Total Creatine Kinase 87 Troponin I LESS THAN 0.02 Total Protein 7.7 Albumin 3.6 Thyroid Stimulating Hormone 4.110 3rd Gen Salicylates Level LESS THAN 1.7 Acetaminophen Level LESS THAN 2.0 Valproic Acid (Depakene) Level 36 Ethyl Alcohol Level LESS THAN 3 Urine Color LIGHT-YELLOW Urine Turbidity CLEAR Urine pH 6.5 Urine Specific [place] 1.012 Urine Protein TRACE Urine Glucose (UA) NEG Urine Ketones NEG Urine Occult Blood TRACE Urine Nitrite NEG Urine Bilirubin NEG Urine Urobilinogen LESS THAN 2.0 Urine Leukocyte Esterase NEG Urine RBC LESS THAN 1 Urine WBC LESS THAN 1 Urine Squamous Epithelial <1 Cells Urine Mucus FEW Microscopic Urinalysis Comment CATH-CULT NOT IND Urine Opiates Screen POS Urine Barbiturates Screen POS Urine Amphetamines Screen NEG Urine Benzodiazepines Screen NEG Urine Cocaine Screen NEG Urine Cannabinoids Screen NEG Result Diagram: 05/20/16201905/20/162019 Imaging Last Impressions Head CT 05/20/162003 Signed Impressions: Service Date/Time: Friday, May 20, 2016 22:00 - CONCLUSION: 1. No acute findings. No significant change from December 2015. Fan Julian MD Chest X-Ray 05/20/162003 Signed Impressions: Service Date/Time: Friday, May 20, 2016 20:08 - CONCLUSION: 1. Qxilbj-l-Munf tip in superior vena cava. Elevated left hemidiaphragm. No acute findings compared with February 2016. Fan Julian MD . Assessment and Plan Problem List: (1) Status epilepticus ICD Code: G40.301 Status: Acute Assessment and Plan Ms. Gupta is a 30-year-old female with past medical history of hypertension, end-stage renal disease status post right renal transplant in 2009, seizure disorder, lupus, and migraine headaches who presented to the emergency room on with status epilepticus. According to the emergency room physician and RN, the patient had 5 minutes of seizure activity that was treated with 4 mg of Ativan IV/IM without resolution. The patient was given etomidate in preparation for intubation in the seizure activity resolved. Intubation was not required. Status Epilepticus - received Ativan 2 mg IM and 2 mg IV via EMS and etomidate was given to prep for intubation with subsequent seizure cessation - seizures x 5 minutes - Loaded with IV Cerebyx in ER - post ictal at time of exam - We'll place in ICU for close monitoring for now - should be able to transfer out within 24 hours if mental status improves, no further seizures and cleared by neurology - Ativan 1 mg IV every 15 minutes as needed for seizures - Seizure precautions - Consult neurology - - Frequent neuro checks -NPO for now - Normal saline 100 cc per hour s/p kidney transplant - continue with immunosuppression regimen -consider nephrology consult as needed Written by Feli Mota, acting as scribe for Dr. Marin on 05/21/16 at 04:44. patient was seen and examined. 30 y/o female with history of seizure who was brought to ER with status epilepticus she was post-ictal at the time of my evaluation. she was loaded with Fosphenytoin. continue with neuro-check and seizure precautions. neurology consulted. will upgrade to ICU for close monitoring. rest of assessment and plan as noted above. . Discussed Condition With ER physician . Physician Certification 2 Midnight Certification Type: Admission for Inpatient Services Order for Inpatient Services The services are ordered in accordance with Medicare regulations or non- Medicare payer requirements, as applicable. In the case of services not specified as inpatient-only, they are appropriately provided as inpatient services in accordance with the 2-midnight benchmark. Estimated LOS (days): 3 days is the estimated time the patient will need to remain in the hospital, assuming treatment plan goals are met and no additional complications. Post-Hospital Plan: Home Feli Mota May 21, 2016 04:45 Gunnar Marin MD May 21, 2016 05:43
[2016-05-21] MEDS ORDERED: FUROSEMIDE 20 MG TAB PO PRN (06:00)
[2016-05-21] MEDS ORDERED: ACETAMINOPHEN 650 MG SUPP RECTAL PRN (09:15)
[2016-05-21] MEDS: predniSONE 5 MG TAB PO SCH (09:22)
[2016-05-21] MEDS: POTASSIUM CHLORIDE 20 MEQ CONTROLLED RELEASE TAB PO SCH (09:22)
[2016-05-21] MEDS: CARVEDILOL 12.5 MG TAB PO SCH ×2 (09:22→20:59)
[2016-05-21] MEDS: TACROLIMUS 1 MG CAP PO SCH ×3 (09:22→17:42)
[2016-05-21] MEDS: MYCOPHENOLATE MOFETIL 500 MG TAB PO SCH ×2 (09:22→17:15)
[2016-05-21] MEDS: ACETAMINOPHEN 325 MG TAB PO PRN ×3 (09:55→18:20)
[2016-05-21] MEDS: LACTULOSE SYRUP 20 GM/30 ML CUP PO SCH ×2 (10:18→20:59)
--- NOTE | 2016-05-21 11:02 | HHI.PR ---
Subjective Remarks Sleepy but arousable and following commands. Was able to swallow her meds this morning. States that she has a dry cough. No shortness of breath. No other complaints. She states that she has no abdominal pain or diarrhea. Denies any symptoms of dysuria Objective Vitals Vital Signs Date Time Temp Pulse Resp B/P Pulse Ox O2 Delivery O2 Flow Rate FiO2 05/21/16 10:00 106 05/21/16 08:00 101.9 103 28 157/90 97 05/21/16 08:00 97 Room Air 05/21/16 08:00 104 05/21/16 06:14 98.8 92 16 140/79 100 Nasal Cannula 2 05/21/16 04:30 96 18 162/80 100 Nasal Cannula 2 05/21/16 02:30 98.4 102 16 151/78 99 Nasal Cannula 2 05/21/16 00:30 98.7 94 16 163/68 100 Nasal Cannula 2 05/20/16 22:29 91 16 153/70 98 Nasal Cannula 2 05/20/16 21:20 101 18 166/72 99 Nasal Cannula 2 05/20/16 21:17 18 99 Nasal Cannula 2 05/20/16 20:15 90 18 92 Room Air 05/20/16 20:15 18 90 Room Air 05/20/16 20:04 98.4 104 18 137/89 95 Result Diagram: 05/20/16201905/20/162019 Objective Remarks GENERAL: This is a well-nourished, well-developed patient, in no apparent distress. CARDIOVASCULAR: Regular rate and rhythm RESPIRATORY: Clear to auscultation. Breath sounds equal bilaterally. No wheezes , rales, or rhonchi. GASTROINTESTINAL: Abdomen soft, non-tender, nondistended. Normal active bowel sounds MUSCULOSKELETAL: Extremities without clubbing, cyanosis, or edema. NEURO: Sleepy, opens eyes to stimuli and voice, follows simple commands and moves to allow examination A/P Problem List: (1) Status epilepticus ICD Code: G40.301 Status: Acute Assessment and Plan 30-year-old female with past medical history of hypertension, end-stage renal disease status post right renal transplant in 2009, seizure disorder, lupus, and migraine headaches who presented to the emergency room on 05/20/2016 with status epilepticus. According to the emergency room physician and RN, the patient had 5 minutes of seizure activity that was treated with 4 mg of Ativan IV/IM without resolution. The patient was given etomidate in preparation for intubation in the seizure activity resolved. Intubation was not required. Status Epilepticus - received Ativan 2 mg IM and 2 mg IV via EMS and etomidate was given to prep for intubation with subsequent seizure cessation not requiring actual intubation - seizures x 5 minutes - Loaded with IV Cerebyx in ER, follow-up with Dilantin level Continue in ICU for close monitoring as patient still with decreased level consciousness at times extremely sleepy, awaiting neurology evaluation and consultation. - Ativan 1 mg IV every 15 minutes as needed for seizures - Seizure precautions - Frequent neuro checks Start oral diet - Normal saline 100 cc per hour Fever episode with complaints of cough overnightrepeat chest x-ray to rule out aspiration, blood cultures and lactic acid drawn for further evaluation and workup due to history of immunosuppression. Tylenol when necessary for symptom control. s/p kidney transplant - continue with immunosuppression regimen, discontinue Siegel catheter nephrology consult as needed DVT prophylaxisheparin Discharge Planning Home when stable Denise Torres MD May 21, 2016 11:02
--- NOTE | 2016-05-21 11:46 | RADRPT ---
EXAM DATE/TIME: 05/21/2016 11:16 [place] COMPARISON: CHEST SINGLE AP, May 20, 2016, 20:08. INDICATIONS : Fever MEDICAL HISTORY : None. Hypertension. Cerebrovascular disease. Seizures.cardiovascular disease. SURGICAL HISTORY : None. Cholecystectomy. Right kidney transplant. Pacemaker. ENCOUNTER: Subsequent ACUITY: 2 days PAIN SCORE: Non-responsive. LOCATION: Bilateral chest FINDINGS: There are patchy partially consolidative infiltrates present at the left lung base without loss of de lineation left hemidiaphragm. The right lung is clear. Ifntnb-x-Bola catheter tip in the distal sup erior vena cava. The heart is normal size. CONCLUSION: Partially consolidative infiltrates in the left lower lung. Thanh Singer MD on May 21, 2016 at 11:44 Board Certified Radiologist. This report was verified electronically.
[2016-05-21] MEDS ORDERED: LABETALOL HCL 100 MG/20 ML VIAL IV PRN (12:00)
[2016-05-21] MEDS ORDERED: ENALAPRILAT 1.25 MG/ML VIAL IV PRN (12:00)
--- NOTE | 2016-05-21 12:54 | EKG ---
Date Performed: 05/20/2016 Time Performed: 20:57:46 PTAGE: 30 years EKG: Sinus rhythm MARKED LEFT AXIS DEVIATION RIGHT BUNDLE BRANCH BLOCK ABNORMAL ECG PREVIOUS TRACING : 03/03/2016 14.54 Compared to prior tracing no significant change DOCTOR: Liu Schwartz Interpretating Date/Time 05/21/2016 12:53:18
[2016-05-21] MEDS: SODIUM CHLOR 0.9% 1000 ML INJ 1,000 ML IV SCH ×2 (13:20→19:00)
[2016-05-21] MEDS: HEPARIN SODIUM - SQ 10,000 UNITS/ML VIAL SQ SCH ×2 (13:21→23:20)
[2016-05-21] MEDS ORDERED: POTA10CA PO (13:27)
[2016-05-21] MEDS ORDERED: LEVE250T5 PO (13:38)
[2016-05-21] MEDS ORDERED: AZIT250T3 PO (13:38)
[2016-05-21] MEDS ORDERED: NEOMOIN RIGHT EYE (13:38)
[2016-05-21] MEDS ORDERED: ACYC200C66 PO (13:38)
[2016-05-21] MEDS ORDERED: SODIUM CHLORIDE 0.9% FLUSH 10 ML FLUSH IVF PRN (14:15)
[2016-05-21] MEDS: cefTRIAXone INJ 1,000 MG in SODIUM CHLORIDE 0.9% INJ 100 ML IV SCH (14:39)
[2016-05-21] MEDS: metroNIDAZOLE 500 MG TAB PO SCH ×2 (14:39→23:20)
[2016-05-21 15:42] LABS: BICARBONATE 20.8 MEQ/L (21.0-32.0); POTASSIUM 3.1 MEQ/L (3.5-5.1)
[2016-05-21] MEDS ORDERED: CHLORHEXIDINE GLUCONATE 2 % 1 PACK (2 CLOTHS) TOP PRN (16:15)
[2016-05-21] MEDS ORDERED: PANTOPRAZOLE SOD 40 MG DELAYED RELEASE TAB PO ONE (16:15)
[2016-05-21] MEDS ORDERED: MISCELLANEOUS NURSING INFORMATION XX SCH (16:15)
[2016-05-21] MEDS ORDERED: POTASSIUM CHLORIDE 20 MEQ CONTROLLED RELEASE TAB PO ONE (16:30)
[2016-05-21] MEDS ORDERED: VALPROATE INJ 500 MG in SODIUM CHLORIDE 0.9% INJ 100 ML IV ONE (17:00)
[2016-05-21 17:20] LABS: MAGNESIUM 1.5 MG/DL (1.5-2.5)
[2016-05-21] MEDS: DIVALPROEX SODIUM E.R. 500 MG TAB PO SCH ×2 (17:42→23:19)
[2016-05-21] MEDS: CHLORHEXIDINE GLUCONATE 2 % 1 PACK (2 CLOTHS) TOP SCH (23:20)
[2016-05-22] VITALS (7 sets, daily range): BP systolic 129–158; BP diastolic 61–91; PULSE 90–103; RESP 16–20; TEMP 97.7–100.1; O2SAT 95–98
[2016-05-22] MEDS: TACROLIMUS 1 MG CAP PO SCH ×2 (06:16→16:28)
[2016-05-22] MEDS: DIVALPROEX SODIUM E.R. 500 MG TAB PO SCH ×3 (06:17→16:27)
[2016-05-22] MEDS: MYCOPHENOLATE MOFETIL 500 MG TAB PO SCH ×2 (06:17→16:28)
[2016-05-22] MEDS: metroNIDAZOLE 500 MG TAB PO SCH ×2 (06:17→14:03)
[2016-05-22] MEDS: SODIUM CHLOR 0.9% 1000 ML INJ 1,000 ML IV SCH ×3 (06:18→21:08)
[2016-05-22 07:03] LABS: AUTOMATED NEUTROPHIL # 6.1 TH/MM3 (1.8-7.7); BASOPHIL % 0.3 % (0.0-2.0); EOSINOPHIL # 0.1 TH/MM3 (0-0.4); EOSINOPHIL % 1.2 % (0.0-4.0); HEMATOCRIT 35.1 % (35.0-46.0); HEMO FLAGS DIFF FINAL; LYMPH % 23.6 % (9.0-44.0); LYMPHOCYTE # 2.2 TH/MM3 (1.0-4.8); MEAN CELL VOLUME 88.3 FL (80.0-100.0); MEAN CORPUSCULAR HEMOGLOBIN 28.6 PG (27.0-34.0); MEAN CORPUSCULAR HGB CONC 32.3 % (32.0-36.0); MONO % 9.5 % (0.0-8.0); NEUT % 65.4 % (16.0-70.0); PLATELET COUNT 156 TH/MM3 (150-450); RED BLOOD COUNT 3.97 MIL/MM3 (4.00-5.30); RED CELL DISTRIBUTION WIDTH 15.8 % (11.6-17.2); WHITE BLOOD COUNT 9.3 TH/MM3 (4.0-11.0)
[2016-05-22 07:34] LABS: BICARBONATE 23.6 MEQ/L (21.0-32.0); POTASSIUM 3.1 MEQ/L (3.5-5.1)
--- NOTE | 2016-05-22 07:39 | MB ---
cc: TOMAS ALEMAN M.D. DATE OF CONSULTATION 05/21/2016 REASON FOR CONSULTATION Status epilepticus HISTORY OF PRESENT ILLNESS Ms. Gupta is a very nice 30-year-old woman well-known to me who has systemic lupus erythematosus, end-stage renal disease with renal transplant, as well as seizure disorder and severe migraine headaches. She normally takes Depakote and Keppra. Apparently she ran out of one of her medications. She is not sure which one, but apparently it was possibly the Depakote. Yesterday she began having seizures and had several seizures which were grand mal type seizures. She came to the emergency room in status epilepticus, was given 4 mg of Ativan IV without resolution and was given Etomidate in preparation for intubation and the seizures stopped. She did not require intubation. She has had no recurrent seizures. PAST MEDICAL HISTORY 1. History of systemic lupus erythematosus. 2. Anxiety 3. Depression 4. Hypertension 5. End-stage renal disease 6. Renal transplant 7. Migraine headaches 8. Seizure disorder 9. Renal transplant MEDICATIONS AT HOME 1. Keppra 500 mg three b.i.d. 2. Phenergan as needed 3. [place] for severe headache 4. In the past, she was also on Depakote 500 mg t.i.d. but this was not on her medicines she presented with. 5. She also takes Topamax for headaches 100 mg t.i.d. 6. Prograf 7. Prednisone 5 mg daily 8. Omeprazole 9. Mycophenolate 500 mg b.i.d. 10. Lasix 11. Coreg 12. Lunesta ALLERGIES DILAUDID, OFLOXACIN, MOTRIN, OXYCODONE AND PENICILLIN. NEUROLOGIC EXAMINATION VITAL SIGNS: Blood pressure is 157/90, pulse is 110, temperature is 101.9 degrees. Higher cortical functions at this time she is lethargic but is arousable. Follows commands. She has mild confusion. Cranial nerves are intact. Motor exam is normal with brief normal reflexes present. CT of the brain is reviewed and is normal. LABORATORY DATA White count 8100, hemoglobin 12, hematocrit 36.8% platelet count is at 218,000, PT 12.4, INR 1.1. Sodium is 140, potassium 3.1, chloride 107, CO2 20.8, BUN is 10, creatinine 1, GFR 79, glucose is 80, calcium 8.3, AST 13, ALT is 25, total bilirubin 0.3, ammonia 55. IMPRESSION Recent status epilepticus. Her Depakote level was subtherapeutic at 36. It is unclear as to whether or not she stopped this medication, but it appears she might have. RECOMMENDATIONS We will increase her Depakote level to a therapeutic range. Also obtain an EEG and place her under seizure precautions. Continue Keppra. MD KATHERYN Mccormick/MAXX /4:40 PM /7:31 AM
[2016-05-22] MEDS: PANTOPRAZOLE SOD 40 MG DELAYED RELEASE TAB PO SCH (08:54)
[2016-05-22] MEDS: CARVEDILOL 12.5 MG TAB PO SCH ×2 (08:54→21:09)
[2016-05-22] MEDS: predniSONE 5 MG TAB PO SCH (08:54)
[2016-05-22] MEDS: POTASSIUM CHLORIDE 20 MEQ CONTROLLED RELEASE TAB PO SCH (08:54)
[2016-05-22] MEDS: ACETAMINOPHEN 325 MG TAB PO PRN (08:55)
[2016-05-22] MEDS: LACTULOSE SYRUP 20 GM/30 ML CUP PO SCH ×2 (08:55→21:00)
[2016-05-22] MEDS ORDERED: ACETAMINOPHEN/HYDROcodone 325 MG/5 MG TAB PO PRN (09:15)
[2016-05-22] MEDS ORDERED: ACETAMINOPHEN 325 MG TAB PO PRN (09:15)
[2016-05-22] MEDS ORDERED: NALOXONE HCL 0.4 MG/ML AMP IV PRN (09:15)
[2016-05-22] MEDS: ACETAMINOPHEN/HYDROcodone 325 MG/7.5 MG TAB PO PRN ×2 (10:00→16:28)
--- NOTE | 2016-05-22 10:08 | HHI.PR ---
Review/Management Diagnosis recent status epilepticus---resolved Plan continue keppra 1500 mg bid, depakote 1000 mg bid, topamax 100 mg tid ok from neurology standpoint to discharge to home (prescriptions written) follow up in my office in 1 week. Diagnosis/Plan: Subjective Subjective Comments No recurrent seizures Pt reports that she ran out of keppra several day ago Active Medications Current Medications Medications (Trade) Dose Ordered Sig/[place] Route Start Time Stop Time Status Last Admin (NS Flush) 2 ml UNSCH PRN IVF 05/20/16 20:15 05/20/16 21:07 Lorazepam 1 mg 1 mg Q15M PRN IV PUSH 05/20/16 23:00 (NS 1000 ml Inj) 1,000 ml @ 100 mls/hr Q10H IV 05/20/16 23:00 05/22/16 06:18 (Norvasc) 10 mg DAILY PO 05/21/16 09:00 05/22/16 08:54 (Coreg) 12.5 mg BID PO 05/21/16 09:00 05/22/16 08:54 (Lasix) 20 mg DAILY PRN PO 05/21/16 06:00 (Cellcept) 500 mg Q12H PO 05/21/16 06:00 05/22/16 06:17 (KCl) 20 meq DAILY PO 05/21/16 09:00 05/22/16 08:54 (Deltasone) 5 mg DAILY PO 05/21/16 09:00 05/22/16 08:54 (Tylenol Supp) 650 mg Q4H PRN RECTAL 05/21/16 09:15 (Tylenol) 650 mg Q4H PRN PO 05/21/16 09:15 05/22/16 08:55 (Lactulose Liq) 30 ml BID PO 05/21/16 11:00 05/22/16 08:55 (Heparin Inj) 5,000 units Q12H SQ 05/21/16 12:00 05/21/16 23:20 (Vasotec Inj) 1.25 mg Q6H PRN IV 05/21/16 12:00 (Trandate Inj) 10 mg Q4H PRN IV 05/21/16 12:00 Sodium Chloride 2 ml 2 ml UNSCH PRN IVF 05/21/16 14:15 (Rocephin Inj/NS Inj) 100 ml @ 200 mls/hr Q24H IV 05/21/16 16:00 05/21/16 14:39 (Flagyl) 500 mg Q8H PO 05/21/16 15:00 05/22/16 06:17 (Protonix) 40 mg DAILY PO 05/22/16 09:00 05/22/16 08:54 Miscellaneous Information 1 Q361D XX 05/21/16 16:15 (Chlorhexidine 2% Cloth) 3 pack Taper DAILY@04 TOP 05/22/16 04:00 05/18/17 03:59 (Chlorhexidine 2% Cloth) 3 pack UNSCH PRN TOP 05/21/16 16:15 (Depakote Er) 500 mg Q6HR PO 05/21/16 18:00 05/22/16 06:17 (Prograf) 4 mg Q12H PO 05/21/16 18:00 05/22/16 06:16 ([place] 5-325 Mg) 1 tab Q4H PRN PO 05/22/16 09:15 ([place] 7.5-325 Mg) 1 tab Q4H PRN PO 05/22/16 09:15 05/22/16 10:00 (Narcan Inj) 0.4 mg UNSCH PRN IV 05/22/16 09:15 Allergies Allergies Coded Allergies Dilaudid (Verified Allergy, Severe, SEIZURE, 05/20/16) Levofloxacin (Verified Allergy, Severe, HIVES, 05/20/16) Motrin (Verified Allergy, Severe, KIDNEY TRANSPLANT, 05/20/16) Oxycodone (Verified Allergy, Severe, HALLUCINATIONS, 05/20/16) Penicillin (Verified Allergy, Severe, HIVES, 05/20/16) Review of Systems All other ROS: ROS reviewed as documented in chart Exam I&O / VS Vital Signs Date Time Temp Pulse Resp B/P Pulse Ox O2 Delivery O2 Flow Rate FiO2 05/22/16 08:00 100.1 95 18 143/91 98 05/22/16 04:20 99.6 103 20 158/61 98 05/22/16 00:00 98.5 96 20 133/74 96 05/21/16 22:23 98.2 95 20 144/84 96 05/21/16 20:00 98.9 103 22 142/90 97 05/21/16 20:00 100 05/21/16 19:00 97 Room Air 05/21/16 18:00 116 05/21/16 16:00 102 05/21/16 15:00 105 21 141/94 96 05/21/16 14:00 103 05/21/16 12:00 101.2 110 21 131/79 96 05/21/16 12:00 110 General: No acute distress Eye: EOMI Respiratory: Non-labored respirations Cardiology: Normal rate Musculoskeletal: ROM Neurologic: Alert, Normal motor, No focal defects, CN II-XII intact, Gag reflex normal, Normal DTR's Psychiatric: Cooperative, Appropriate mood & affect Exam Comments alert, oriented times 3 speech normal CN 2-12 normal Motor 5/5 BUE and BLE gait normal Objective Micro and Labs Laboratory Tests Test 05/21/16 05/21/16 05/22/16 10:15 14:50 06:30 Lactic Acid Level 0.9 Sodium Level 140 142 Potassium Level 3.1 3.1 Chloride Level 107 109 Carbon Dioxide Level 20.8 23.6 Anion Gap 12 9 Blood Urea Nitrogen 10 12 Creatinine 1.00 0.95 Estimat Glomerular Filtration 79 84 Rate Random Glucose 80 77 Calcium Level 8.3 8.1 Magnesium Level 1.5 White Blood Count 9.3 Red Blood Count 3.97 Hemoglobin 11.3 Hematocrit 35.1 Mean Corpuscular Volume 88.3 Mean Corpuscular Hemoglobin 28.6 Mean Corpuscular Hemoglobin 32.3 Concent Red Cell Distribution Width 15.8 Platelet Count 156 Mean Platelet Volume 7.9 Neutrophils (%) (Auto) 65.4 Lymphocytes (%) (Auto) 23.6 Monocytes (%) (Auto) 9.5 Eosinophils (%) (Auto) 1.2 Basophils (%) (Auto) 0.3 Neutrophils # (Auto) 6.1 Lymphocytes # (Auto) 2.2 Monocytes # (Auto) 0.9 Eosinophils # (Auto) 0.1 Basophils # (Auto) 0.0 CBC Comment DIFF FINAL Differential Comment Ammonia 32 Phenytoin (Dilantin) Level 3.5 Valproic Acid (Depakene) Level 54 Date/Time Procedure Status Source Growth 05/21/16 10:20 Aerobic Blood Culture Received Blood Peripheral Pending 05/21/16 10:20 Anaerobic Blood Culture Received Blood Peripheral Pending Vipul Kelley PhD May 22, 2016 10:08
[2016-05-22] MEDS: TOPIRAMATE 200 MG TAB PO SCH ×2 (11:31→21:35)
[2016-05-22] MEDS: levETIRAcetam 500 MG TAB PO SCH ×2 (11:31→21:09)
[2016-05-22] MEDS: HEPARIN SODIUM - SQ 10,000 UNITS/ML VIAL SQ SCH (11:32)
[2016-05-22] MEDS ORDERED: POTASSIUM CHLORIDE 20 MEQ CONTROLLED RELEASE TAB PO ONE (14:00)
[2016-05-22] MEDS: MAGNESIUM OXIDE 400 MG TAB PO SCH ×2 (14:03→21:09)
[2016-05-22] MEDS: cefTRIAXone INJ 1,000 MG in SODIUM CHLORIDE 0.9% INJ 100 ML IV SCH (16:28)
--- NOTE | 2016-05-22 21:55 | MG ---
cc: ELAINE GONCALVES MD Lab No: [id number] Date: 05/22/16 Age: 30 Sex: F Race: REFERRING PHYSICIAN Dr. Kelley DATE OF [address] negative. EEG 12/19/15 was unremarkable. A 28-year-old woman had seizure followed by again by several seizures, given Ativan, etomidate, intubated, postictal. History of epilepsy, renal transplant, lupus, fistula, syncope, AV shunt, on anticoagulation, dialysis. MEDICATIONS Prograf Flagyl Cellcept Prednisone DESCRIPTION OF RECORD A lot of eye movement artifact. There seems to be alpha rhythm of 8 Hz, 20 microvolts, fairly symmetrical. EKG looks sinus. Photic stimulation - there is a driving response but a lot of eye movement artifact. No evidence of any epileptic activity in this one recording. IMPRESSION Overall normal-appearing EEG, no gross epileptic activity in this one recording. Clinical correlation. Elaine Goncalves MD DF/ /7:20 PM /9:51 PM
--- NOTE | 2016-05-22 22:16 | HHI.PR ---
Subjective Remarks Patient was seen at 1300. She is feeling better but want stronger pain medication then Tylenol. She denies SOB. She has not had a seizure episode since coming into the hospital. Objective Vitals Vital Signs Date Time Temp Pulse Resp B/P Pulse Ox O2 Delivery O2 Flow Rate FiO2 05/22/16 20:00 98.2 90 18 134/89 95 05/22/16 16:00 98.6 96 16 129/83 97 05/22/16 12:00 97.7 92 18 129/74 98 05/22/16 08:00 100.1 95 18 143/91 98 05/22/16 08:00 90 05/22/16 04:20 99.6 103 20 158/61 98 05/22/16 00:00 98.5 96 20 133/74 96 05/21/16 22:23 98.2 95 20 144/84 96 I/O 05/21/16 05/21/16 05/21/16 05/22/16 05/22/16 05/22/16 07:00 15:00 23:00 07:00 15:00 23:00 Intake Total 844 ml 1075 ml 240 ml Output Total 950 ml Balance -106 ml 1075 ml 240 ml Intake Oral 120 ml 420 ml 240 ml IV Total 724 ml 655 ml Output Urine Total 950 ml # Voids 2 1 # Bowel Movements 0 2 Result Diagram: 05/22/16 0630 05/22/16 0630 Other Results Microbiology Date/Time Procedure Status Source Growth 05/21/16 10:20 Aerobic Blood Culture - Preliminary Resulted Blood Peripheral NO GROWTH IN 1 DAY 05/21/16 10:20 Anaerobic Blood Culture - Preliminary Resulted Blood Peripheral NO GROWTH IN 1 DAY Imaging Last 48 hours Impressions Chest X-Ray 05/21/16 0000 Signed Impressions: Service Date/Time: May 11:16 - CONCLUSION: Partially consolidative infiltrates in the left lower lung. Thanh Singer MD Objective Remarks GENERAL: This is a well-nourished, well-developed patient, in no apparent distress. CARDIOVASCULAR: Regular rate and rhythm without murmurs, gallops, or rubs. RESPIRATORY: Relatively Clear to auscultation. Breath sounds equal bilaterally. No wheezes, rales, or rhonchi. GASTROINTESTINAL: Abdomen soft, non-tender, nondistended. Normal active bowel sounds MUSCULOSKELETAL: Extremities without clubbing, cyanosis, or edema. NEURO: Alert & Oriented x4 to person, place, time, situation. Moves all ext x4 A/P Problem List: (1) Status epilepticus ICD Code: G40.301 Status: Acute Assessment and Plan 30-year-old female with past medical history of hypertension, end-stage renal disease status post right renal transplant in 2009, seizure disorder, lupus, and migraine headaches who presented to the emergency room on 05/20/2016 with status epilepticus. According to the emergency room physician and RN, the patient had 5 minutes of seizure activity that was treated with 4 mg of Ativan IV/IM without resolution. The patient was given etomidate in preparation for intubation in the seizure activity resolved. Intubation was not required. Status Epilepticus - received Ativan 2 mg IM and 2 mg IV via EMS and etomidate was given to prep for intubation with subsequent seizure cessation not requiring actual intubation - seizures x 5 minutes - Loaded with IV Cerebyx in ER, followed-up with Dilantin level, Ativan 1 mg IV every 15 minutes as needed for seizures - Seizure precautions, neuro checks remains stable Appreciate Neurology recommendations of Keppra 1.5 g PO BID, Depakote 1 g PO BID , Topamax 100 mg PO BID. Neurology has cleared patient for discharge with outpatient follow-up. Previous Fever episode with complaints of cough chest x-ray with left lower lung infiltrate likely aspiration from seizure, blood cultures 24 hours preliminary results not elevated, and lactic acid level reviewed for further evaluation and workup due to history of immunosuppression. Tylenol when necessary for symptom control. No fever overnight, currently on Rocephin and Flagyl and transition to ceftin and flagyl on discharge. s/p kidney transplant - continue with immunosuppression regimen, discontinue Siegel catheter yesterday DVT prophylaxisheparin Discharge Planning discharge to Home in am if blood cultures remain negative and no reoccurrence of seizures. Denise Torres MD May 22, 2016 22:16
[2016-05-23] VITALS: BP 141/84; PULSE 85; RESP 20; TEMP 97.6; O2SAT 99
[2016-05-23] MEDS: HEPARIN SODIUM - SQ 10,000 UNITS/ML VIAL SQ SCH ×2 (00:12→11:16)
[2016-05-23] MEDS: DIVALPROEX SODIUM E.R. 500 MG TAB PO SCH ×3 (00:12→11:11)
[2016-05-23] MEDS: metroNIDAZOLE 500 MG TAB PO SCH ×3 (00:12→15:24)
[2016-05-23] MEDS: TOPIRAMATE 200 MG TAB PO SCH ×2 (03:46→11:12)
[2016-05-23 04:00] VITALS: BP 131/82; PULSE 80; RESP 20; TEMP 97.6; O2SAT 98
[2016-05-23] MEDS: CHLORHEXIDINE GLUCONATE 2 % 1 PACK (2 CLOTHS) TOP SCH (04:00)
[2016-05-23] MEDS: TACROLIMUS 1 MG CAP PO SCH (06:13)
[2016-05-23] MEDS: MYCOPHENOLATE MOFETIL 500 MG TAB PO SCH (06:13)
[2016-05-23 07:00] VITALS: PULSE 84
[2016-05-23 08:00] VITALS: BP 128/83; PULSE 79; RESP 18; TEMP 97.1; O2SAT 97
[2016-05-23] MEDS ORDERED: ONDANSETRON HCL 4 MG/2 ML VIAL IV PUSH PRN (08:00)
--- NOTE | 2016-05-23 08:10 | HHI.DCPOC ---
Discharge Care Plan Diagnosis: (1) Seizure disorder Goals to Promote Your Health * To prevent worsening of your condition and complications, take medication as prescribed. Follow up with neurology in 1 week. Directions to Meet Your Goals Take your medications as prescribed Follow your dietary instruction Follow activity as directed Keep your appointments as scheduled Take your immunizations and boosters as scheduled If your symptoms worsen call your PCP, if no PCP go to Urgent Care Center or Emergency Room Smoking is Dangerous to Your Health. Avoid second hand smoke Call the 24-hour hour crisis hotline for domestic abuse at Catrina Horne MD May 23, 2016 08:10
--- NOTE | 2016-05-23 08:10 | HHI.PR ---
Subjective Remarks Patient states that she is doing well. No fever, chills, cp, sob. She does c/o LLE pain over INJ site, ambulating. No seizure activity. Objective Vital Signs Date Time Temp Pulse Resp B/P Pulse Ox O2 Delivery O2 Flow Rate FiO2 05/23/16 04:00 97.6 80 20 131/82 98 05/23/16 00:00 97.6 85 20 141/84 99 05/22/16 20:00 98.2 90 18 134/89 95 05/22/16 16:00 98.6 96 16 129/83 97 05/22/16 12:00 97.7 92 18 129/74 98 05/22/16 08:00 100.1 95 18 143/91 98 05/22/16 08:00 90 I/O 05/22/16 05/22/16 05/22/16 05/23/16 05/23/16 05/23/16 07:00 15:00 23:00 07:00 15:00 23:00 Intake Total 240 ml 240 ml Balance 240 ml 240 ml Intake Oral 240 ml 240 ml # Voids 1 2 # Bowel Movements 0 Result Diagram: 05/22/16 0630 05/22/16 0630 Other Results GENERAL: This is a well-nourished, well-developed patient, in no apparent distress. CARDIOVASCULAR: Regular rate and rhythm without murmurs, gallops, or rubs. RESPIRATORY: Relatively Clear to auscultation. Breath sounds equal bilaterally. No wheezes, rales, or rhonchi. GASTROINTESTINAL: Abdomen soft, non-tender, nondistended. Normal active bowel sounds MUSCULOSKELETAL: Extremities without clubbing, cyanosis. LLE with chronic 1+ pitting edema to tibial plateau. NEURO: Alert & Oriented x4 to person, place, time, situation. Moves all ext x4 A/P Problem List: (1) Seizure disorder ICD Code: G40.909 (2) Renal transplant disorder ICD Code: T86.10 (3) Lupus (systemic lupus erythematosus) ICD Code: M32.9 (4) Hypertension ICD Code: I10 Assessment and Plan 30-year-old female with past medical history of hypertension, end-stage renal disease status post right renal transplant in 2009, seizure disorder, lupus, and migraine headaches who presented to the emergency room on 05/20/2016 with status epilepticus. According to the emergency room physician and RN, the patient had 5 minutes of seizure activity that was treated with 4 mg of Ativan IV/IM without resolution. The patient was given etomidate in preparation for intubation in the seizure activity resolved. Intubation was not required. Status Epilepticus -Patient with no seizure activity since activity in the ED - Seizure precautions, neuro checks remains stable - Appreciate Neurology recommendations of Keppra 1.5 g PO BID, Depakote 1 g PO BID, Topamax 100 mg PO BID. Neurology has cleared patient for discharge with outpatient follow-up. Previous Fever episode with complaints of cough chest x-ray with left lower lung infiltrate likely aspiration from seizure, blood cultures 24 hours preliminary results with no growth to date. Lactic acid level normal. Tylenol when necessary for symptom control. No fever overnight, currently on Rocephin and Flagyl -DC home on ceftin and flagyl s/p kidney transplant - continue with immunosuppression regimen - f/u with operational risk analyst upon discharge DVT prophylaxisheparin Diet - regular Zofran prn Analgesia - [place] prn Discharge Planning home today Catrina Horne MD May 23, 2016 08:10
[2016-05-23] MEDS ORDERED: METR-1 PO (08:16)
[2016-05-23] MEDS ORDERED: CEFT500T3 PO (08:16)
[2016-05-23] MEDS: levETIRAcetam 500 MG TAB PO SCH (08:45)
[2016-05-23] MEDS: LACTULOSE SYRUP 20 GM/30 ML CUP PO SCH (08:45)
[2016-05-23] MEDS: POTASSIUM CHLORIDE 20 MEQ CONTROLLED RELEASE TAB PO SCH (08:45)
[2016-05-23] MEDS: MAGNESIUM OXIDE 400 MG TAB PO SCH (08:45)
[2016-05-23] MEDS: PANTOPRAZOLE SOD 40 MG DELAYED RELEASE TAB PO SCH (08:46)
[2016-05-23] MEDS: CARVEDILOL 12.5 MG TAB PO SCH (08:46)
[2016-05-23] MEDS: predniSONE 5 MG TAB PO SCH (08:46)
--- NOTE | 2016-05-23 11:17 | HHI.DS ---
Discharge Summary Admission Date May 20, 2016 at 22:58 Discharge Date: May 23, 2016 Admitting Diagnosis Status Epileticus [facility] Neurology Procedures EEG- Normal CBC/BMP: 05/22/16 0630 05/22/16 0630 Significant Findings Laboratory Tests Test 05/20/16 05/20/16 05/21/16 05/22/16 20:20 21:40 14:50 06:30 Neutrophils (%) (Auto) 71.6 % (16.0-70.0) Monocytes (%) (Auto) 10.0 % 9.5 % (0.0-8.0) (0.0-8.0) Prothrombin Time 12.4 SEC (9.8-11.6) Chloride Level 108 MEQ/L 109 MEQ/L (98-107) (98-107) Creatinine 1.12 MG/DL (0.50-1.00) Estimat Glomerular Filtration 70 ML/MIN (>89) 79 ML/MIN (>89) 84 ML/MIN (>89) Rate Random Glucose 125 MG/DL (74-106) Calcium Level 8.4 MG/DL 8.3 MG/DL 8.1 MG/DL (8.5-10.1) (8.5-10.1) (8.5-10.1) Aspartate Amino Transf 13 U/L (15-37) (AST/SGOT) Ammonia 55 MCMOL/L (11-32) Troponin I LESS THAN 0.02 NG/ML (0.02-0.05) Thyroid Stimulating Hormone 4.110 uIU/ML 3rd Gen (0.358-3.740) Salicylates Level LESS THAN 1.7 MG/DL (2.8-20.0) Acetaminophen Level LESS THAN 2.0 MCG/ML (10.0-30.0) Valproic Acid (Depakene) Level 36 MCG/ML (50-100) Urine Occult Blood TRACE (NEG) Urine Mucus FEW /lpf (OCC) Urine Opiates Screen POS (NEG) Urine Barbiturates Screen POS (NEG) Potassium Level 3.1 MEQ/L 3.1 MEQ/L (3.5-5.1) (3.5-5.1) Carbon Dioxide Level 20.8 MEQ/L (21.0-32.0) Red Blood Count 3.97 MIL/MM3 (4.00-5.30) Hemoglobin 11.3 GM/DL (11.6-15.3) Phenytoin (Dilantin) Level 3.5 MCG/ML (10.0-20.0) Hospital Course 30-year-old female with past medical history of hypertension, end-stage renal disease status post right renal transplant in 2009, seizure disorder, lupus, and migraine headaches who presented to the emergency room on 05/20/2016 with status epilepticus. According to the emergency room physician and RN, the patient had 5 minutes of seizure activity that was treated with 4 mg of Ativan IV/IM without resolution. The patient was given etomidate in preparation for intubation in the seizure activity resolved. Intubation was not required. Patient admitted to the hospital for treatment of seizure. EEG completed but normal. Patient resumed on home medications of Depakote, Keppra, and Topamax. Patient having cough with left lower lobe infiltrate, concern for aspiration with seizure, given Rocephin and Flagyl during hospital stay. Discharged home on Ceftin and Flagyl. Patient recommended to follow-up with neurology within 1 week Pt Condition on Discharge: Good Discharge Disposition: Discharge Home Discharge Instructions DIET: Follow Instructions for: As Tolerated, No Restrictions Activities you can perform: Weight Bearing as Patricia Follow up Referrals: Neurology - 1 Week New Medications: Cefuroxime (Ceftin) 500 Mg Tab 500 MG PO BID Infection #5 Ref 0 TAB Metronidazole (Flagyl) 500 Mg Tab 500 MG PO TID Infection #15 Ref 0 TAB Continued Medications: Acyclovir (Acyclovir) 200 Mg Cap 200 MG PO BID Mgmt Viral Infection Ref 0 CAP Amlodipine (Amlodipine) 10 Mg Tab 10 MG PO DAILY Blood Pressure Management TAB Kbniygkxpr-Chdtvizdj-Gnkhbqvx-HC Opth Oint ([place]-Polycin HC Opth Oint) 1% Oint 1 APPLIC RIGHT EYE TID Days 7 Ref 0 GM Voeqgsrkgh-Vqlpaketuztzt-Ykkxhpfq (Cdklulqcpq-Veexlyhhlfccp-Wpufameu) 50-325-40 Mg Tab 2 TAB PO Q6HR Do not exceed 6 tablets/day. PRN HEADACHE TAB Carvedilol (Coreg) 12.5 Mg Tab 12.5 MG PO BID TAB Dicyclomine (Bentyl) 20 Mg Tab 20 MG PO QID PRN CR+ TAB Diphenhydramine-Acetaminophen (Tylenol Pm Extra Strength) 25-500 Mg Tab 1 TAB PO HS PRN INSOMNIA Diphenoxylate-Atropine (Lomotil) 2.5-0.025 Mg Tab 1 TAB PO QID PRN DIARRHEA TAB Divalproex ER (Depakote ER) 500 Mg Allyson 1000 MG PO BID Control Seizures Days 30 Ref 0 TAB Furosemide (Lasix) 20 Mg Tab 20 MG PO DAILY PRN SWELLING TAB Hydrocodone-Acetaminophen ([place]) 10-325 Mg Tab 1 TAB PO Q4H PRN PAIN #10 TAB Levetiracetam (Keppra) 500 Mg Tab 1500 MG PO BID Control Seizures Days 30 Ref 0 TAB Mycophenolate (Mycophenolate) 500 Mg Tab 500 MG PO BID Immunosuppression TAB Omeprazole (Omeprazole) 20 Mg Tab 20 MG PO BID TAB Potassium Chloride ER (Potassium Chloride ER) 10 Meq Cap 10 MEQ PO DAILY Electrolyte Replacement #30 Ref 0 CAP Prednisone (Prednisone) 5 Mg Tab 5 MG PO DAILY TAB Tacrolimus (Prograf) 1 Mg Cap 4 MG PO Q12HR Prevent Transplant Reject CAP Topiramate (Topamax) 100 Mg Tab 100 MG PO TID Control Seizures Days 30 Ref 0 TAB Discontinued Medications: Azithromycin (Azithromycin) 250 Mg Tab 250 MG PO DIRECTED Take 2 tabs (500 mg) on day 1 then 1 tab daily x 4 days. Infection #[address] Ref [address] (Depakote DR) 500 Mg Tabdr 500 MG PO TID Control Seizures TAB Eszopiclone (Lunesta) 1 Mg Tab 1 MG PO HS PRN INSOMNIA TAB Levetiracetam (Levetiracetam) 250 Mg Tab 250 MG PO BID Control Seizures #60 Ref 3 TAB Promethazine (Phenergan) 50 Mg Tab 50 MG PO TID PRN NAUSEA OR VOMITING TAB Promethazine Supp (Phenergan Supp) 25 Mg Supp 25 MG RECTAL Q6H PRN NAUSEA OR VOMITING #4 Ref 0 SUPP Topiramate (Topamax) 100 Mg Tab 100 MG PO TID Control Seizures TAB Catrina Horne MD May 23, 2016 11:17
[2016-05-23 12:00] VITALS: BP 129/75; PULSE 81; RESP 18; TEMP 96.9; O2SAT 99
[2016-05-23] MEDS ORDERED: DEPA500T3 PO (15:43)
[2016-05-23] MEDS ORDERED: TOPA100T11 PO (15:43)
[2016-05-23] MEDS ORDERED: LEVE500 PO (15:43)
[2016-05-23 16:00] VITALS: BP 124/75; PULSE 83; RESP 18; TEMP 97.4; O2SAT 98
== END 2016-05-23 17:21 | disposition home or self-care (01) | DRG 101 ==
LOC: NEPC 20:01 → NEDA 22:58 → NEDH 05-21 02:58 → N03B 05-21 06:28 → N05A 05-21 21:25
PROVIDERS: ADMIT Family Medicine; ATTEND Family Medicine
DX: G40.901 Epilepsy, unspecified, not intractable, with status epilepticus (principal); M32.9 Systemic lupus erythematosus, unspecified; Z94.0 Kidney transplant status; I10 Essential (primary) hypertension; Z72.0 Tobacco use; Z79.52 Long term (current) use of systemic steroids; Z79.899 Other long term (current) drug therapy; Z91.14 Patient's other noncompliance with medication regimen; G43.909 Migraine, unspecified, not intractable, without status migrainosus; F32.9 Major depressive disorder, single episode, unspecified; F41.9 Anxiety disorder, unspecified; R50.9 Fever, unspecified; R91.8 Other nonspecific abnormal finding of lung field
CPT/HCPCS: 51702; 70450; 71010; 80048; 80053; 80164; 80185; 80307; 81001; 82140; 82550; 83605; 83735; 84443; 84484; 84703; 85025; 85610; 87040; 87641; 93005; 95819; 96365; J0696; J1642; J1644; J2405; J7030; J7507; J7512; J7517; Q2009

== ENCOUNTER 2016-06-22 19:16 | Emergency (ER) | payer MEDICARE, MEDICAID ==
[~2016-06-22] VITALS: Ht 170.2 cm; Wt 97.0 kg
[~2016-06-22 19:16] MED LIST changes: +ACYC200C66 PO; +CEFT500T3 PO; -DEPA500T PO; +DEPA500T3 PO; -LUNE1TAB6 PO; +METR-1 PO; +NEOMOIN RIGHT EYE; -POTA-245 PO; +POTA10CA PO; -PROM1SUP7 RECTAL; -PROM50TA PO
[2016-06-22 19:32] VITALS: BP 131/84; PULSE 82; RESP 18; TEMP 98.8; O2SAT 99
[2016-06-22] MEDS ORDERED: MORPHINE SULFATE 8 MG/ML INJ IV PUSH ONE ×3 (19:45→22:15)
[2016-06-22] MEDS ORDERED: ONDANSETRON HCL 4 MG/2 ML VIAL IV PUSH ONE (19:45)
--- NOTE | 2016-06-22 19:47 | PD ---
HPI Chief Complaint: Abdominal Pain Time Seen by Provider: 19:36 Travel History International Travel<30 days: No Contact w/Intl Traveler<30days: No Traveled to known affect area: No History of Present Illness HPI This 30-year-old female is complaining of abdominal pain. Having pain on both sides of her stomach but is greater on the right side. She's been having some loose stools. She did have sporadic vomiting. She has a history of kidney transplant in 2009. He also has a history of seizures and headache. PFSH Past Medical History Arthritis: No Autoimmune Disease: Yes (LUPUS) Anxiety: Yes Depression: Yes Heart Rhythm Problems: No Cancer: No Cardiovascular Problems: Yes (HTN) High Cholesterol: No Chemotherapy: No Chest Pain: No Congestive Heart Failure: No Cerebrovascular Accident: Yes Diabetes: No Dialysis: Yes (HX of PRIOR TO KIDNEY TRANSPLANT 2009) Diminished Hearing: No Endocrine: No Gastrointestinal Disorders: No GERD: Yes Glaucoma: No Headaches: Yes Hepatitis: No Hiatal Hernia: No Heparin Induced Thrombocytopen: No Hypertension: Yes Immune Disorder: Yes (LUPUS) Implanted Vascular Access Dvce: Yes (fistula in LUE, R PORT infusaport) Kidney Stones: No Musculoskeletal: Yes Neurologic: Yes Psychiatric: Yes Reproductive: No Respiratory: No Immunizations Current: Yes Migraines: Yes Myocardial Infarction: No Radiation Therapy: No Seizures: Yes Sickle Cell Disease: No Thyroid Disease: No Ulcer: No PNEUMOCCOCAL Vaccine (Year): 2 ?: Not LMP: 05=01=17 : 0 Para: 0 Miscarriage: 0 : 0 Past Surgical History Abdominal Surgery: Yes AICD: No Appendectomy: No Arteriovenous Shunt: Yes (left arm, DOESN'T WORK) Cardiac Surgery: No Cholecystectomy: Yes Ear Surgery: No Endocrine Surgery: Yes (RIGHT KIDNEY TRANSPLANT 2009) Eye Surgery: No Genitourinary Surgery: Yes (RIGHT KIDNEY TRANSPLANT 2009) Gynecologic Surgery: No Insulin Pump: No Joint Replacement: No Neurologic Surgery: No Oral Surgery: No Pacemaker: No Thoracic Surgery: No Other Surgery: Yes (FISTULA LEFT UPPER ARM) Social History Alcohol Use: No (rare) Tobacco Use: Yes Substance Use: No Allergies-Medications (Allergen,Severity, Reaction): Coded Allergies: Dilaudid (Verified Allergy, Severe, SEIZURE, 06/22/16) Levofloxacin (Verified Allergy, Severe, HIVES, 06/22/16) Motrin (Verified Allergy, Severe, KIDNEY TRANSPLANT, 06/22/16) Oxycodone (Verified Allergy, Severe, HALLUCINATIONS, 06/22/16) Penicillin (Verified Allergy, Severe, HIVES, 06/22/16) Reported Meds & Prescriptions Reported Meds & Active Scripts Active [place] (Hydrocodone-Acetaminophen) 10-325 Mg Tab 1 Tab PO Q4H PRN Reported Topamax (Topiramate) 100 Mg Tab 100 Mg PO TID 30 Days Depakote ER (Divalproex Sodium) 500 Mg Allyson 1,000 Mg PO BID 30 Days Keppra (Levetiracetam) 500 Mg Tab 1,500 Mg PO BID 30 Days Acyclovir 200 Mg Cap 200 Mg PO BID Lomotil (Diphenoxylate-Atropine) 2.5-0.025 Mg Tab 1 Tab PO QID PRN Lbmkbfejdq-Ictmvglxalvsq-Ahkdwlyu 50-325-40 Mg Tab 2 Tab PO Q6HR PRN Do not exceed 6 tablets/day. Amlodipine (Amlodipine Besylate) 10 Mg Tab 10 Mg PO DAILY Prograf (Tacrolimus) 1 Mg Cap 4 Mg PO Q12HR Prednisone 5 Mg Tab 5 Mg PO DAILY Omeprazole 20 Mg Tab 20 Mg PO BID Mycophenolate (Mycophenolate Mofetil) 500 Mg Tab 500 Mg PO BID Lasix (Furosemide) 20 Mg Tab 20 Mg PO DAILY PRN Coreg (Carvedilol) 12.5 Mg Tab 12.5 Mg PO BID Review of Systems General / Constitutional: No: Fever, Chills Eyes: No: Diploplia HENT: No: Headaches, Vertigo Respiratory: No: Cough Gastrointestinal: Positive: Nausea, Diarrhea, Abdominal Pain Genitourinary: No: Urgency, Frequency Physical Exam Narrative GENERAL: Well-developed female SKIN: Focused skin assessment warm/dry. HEAD: Atraumatic. Normocephalic. EYES: Pupils equal and round. No scleral icterus. No injection or drainage. ENT: No nasal bleeding or discharge. Mucous membranes pink and moist. NECK: Trachea midline. No JVD. CARDIOVASCULAR: Regular rate and rhythm. No murmur appreciated. RESPIRATORY: No accessory muscle use. Clear to auscultation. Breath sounds equal bilaterally. GASTROINTESTINAL: Abdomen soft, there is some mild tenderness without guarding nondistended. Hepatic and splenic margins not palpable. Bowel sounds are active MUSCULOSKELETAL: No obvious deformities. No clubbing. No cyanosis. No edema. NEUROLOGICAL: Awake and alert. No obvious cranial nerve deficits. Motor grossly within normal limits. Normal speech. PSYCHIATRIC: Appropriate mood and affect; insight and judgment normal. Data Data Last Documented VS Vital Signs Date Time Temp Pulse Resp B/P Pulse Ox O2 Delivery O2 Flow Rate FiO2 06/22/16 20:49 18 06/22/16 19:32 98.8 82 131/84 99 Orders Complete Blood Count With Diff (06/22/16 19:44) Comprehensive Metabolic Panel (06/22/16 19:44) Lipase (06/22/16 19:44) Urinalysis - C+S If Indicated (06/22/16 19:44) Sodium Chlor 0.9% 1000 Ml Inj (Ns 1000 M (06/22/16 19:45) Ondansetron Inj (Zofran Inj) (06/22/16 19:45) Morphine Inj (Morphine Inj) (06/22/16 19:45) Diphenhydramine Inj (Benadryl Inj) (06/22/16 21:00) Morphine Inj (Morphine Inj) (06/22/16 21:00) Ct Abd/Pel W/O Iv Contrast (06/22/16 20:50) Morphine Inj (Morphine Inj) (06/22/16 22:15) Diphenhydramine Inj (Benadryl Inj) (06/22/16 22:15) Labs Laboratory Tests Test 06/22/16 06/22/16 20:10 20:55 White Blood Count 6.8 TH/MM3 Red Blood Count 4.24 MIL/MM3 Hemoglobin 12.1 GM/DL Hematocrit 37.3 % Mean Corpuscular Volume 88.0 FL Mean Corpuscular Hemoglobin 28.6 PG Mean Corpuscular Hemoglobin 32.5 % Concent Red Cell Distribution Width 14.8 % Platelet Count 163 TH/MM3 Mean Platelet Volume 8.0 FL Neutrophils (%) (Auto) 46.3 % Lymphocytes (%) (Auto) 37.0 % Monocytes (%) (Auto) 13.8 % Eosinophils (%) (Auto) 1.1 % Basophils (%) (Auto) 1.8 % Neutrophils # (Auto) 3.2 TH/MM3 Lymphocytes # (Auto) 2.5 TH/MM3 Monocytes # (Auto) 0.9 TH/MM3 Eosinophils # (Auto) 0.1 TH/MM3 Basophils # (Auto) 0.1 TH/MM3 CBC Comment DIFF FINAL Differential Comment Sodium Level 142 MEQ/L Potassium Level 3.3 MEQ/L Chloride Level 110 MEQ/L Carbon Dioxide Level 22.2 MEQ/L Anion Gap 10 MEQ/L Blood Urea Nitrogen 12 MG/DL Creatinine 0.99 MG/DL Estimat Glomerular Filtration 80 ML/MIN Rate Random Glucose 81 MG/DL Calcium Level 8.7 MG/DL Total Bilirubin 0.3 MG/DL Aspartate Amino Transf 20 U/L (AST/SGOT) Alanine Aminotransferase 24 U/L (ALT/SGPT) Alkaline Phosphatase 86 U/L Total Protein 7.3 GM/DL Albumin 3.3 GM/DL Lipase 45 U/L Urine Color YELLOW Urine Turbidity CLEAR Urine pH 7.5 Urine Specific [place] 1.017 Urine Protein NEG mg/dL Urine Glucose (UA) NEG mg/dL Urine Ketones NEG mg/dL Urine Occult Blood NEG Urine Nitrite NEG Urine Bilirubin NEG Urine Leukocyte Esterase NEG Urine WBC 0-2 /hpf Urine Squamous Epithelial > 8 /hpf Cells Microscopic Urinalysis Comment CULT NOT INDICATED MDM Medical Decision Making Medical Screen Exam Complete: Yes Emergency Medical Condition: Yes Medical Record Reviewed: Yes Differential Diagnosis Differential includes gastroenteritis, diverticulitis Narrative Course Lab work is unremarkable. CT scan has been read as negative. She is stable for discharge Diagnosis Primary Impression: Nonspecific abdominal pain Disposition: 01 DISCHARGE HOME Condition: Stable Chin Gustafson MD June 22, 2016 19:47
[2016-06-22] MEDS: SODIUM CHLOR 0.9% 1000 ML INJ 1,000 ML IV SCH ×2 (20:10→23:05)
[2016-06-22 20:20] VITALS: BP 137/90; PULSE 84; RESP 18; O2SAT 99
[2016-06-22 20:30] LABS: AUTOMATED NEUTROPHIL # 3.2 TH/MM3 (1.8-7.7); BASOPHIL # 0.1 TH/MM3 (0-0.2); BASOPHIL % 1.8 % (0.0-2.0); EOSINOPHIL # 0.1 TH/MM3 (0-0.4); EOSINOPHIL % 1.1 % (0.0-4.0); HEMATOCRIT 37.3 % (35.0-46.0); HEMO FLAGS DIFF FINAL; LYMPHOCYTE # 2.5 TH/MM3 (1.0-4.8); MEAN CORPUSCULAR HEMOGLOBIN 28.6 PG (27.0-34.0); MEAN CORPUSCULAR HGB CONC 32.5 % (32.0-36.0); MONO % 13.8 % (0.0-8.0); NEUT % 46.3 % (16.0-70.0); PLATELET COUNT 163 TH/MM3 (150-450); RED BLOOD COUNT 4.24 MIL/MM3 (4.00-5.30); RED CELL DISTRIBUTION WIDTH 14.8 % (11.6-17.2); WHITE BLOOD COUNT 6.8 TH/MM3 (4.0-11.0)
[2016-06-22 20:45] LABS: CHLORIDE 110 MEQ/L (98-107); POTASSIUM 3.3 MEQ/L (3.5-5.1); SODIUM (NA) 142 MEQ/L (136-145)
[2016-06-22 20:49] LABS: ANION GAP 10 MEQ/L (5-15); BICARBONATE 22.2 MEQ/L (21.0-32.0); BLOOD UREA NITROGEN 12 MG/DL (7-18)
[2016-06-22 20:52] LABS: ALT (GPT) 24 U/L (10-53); AST (GOT) 20 U/L (15-37); GLOMERULAR FILTRATION RATE 80 ML/MIN (>89)
[2016-06-22 20:54] LABS: TOTAL BILIRUBIN ADULT 0.3 MG/DL (0.2-1.0)
[2016-06-22 20:55] LABS: ALKALINE PHOSPHATASE 86 U/L (45-117)
[2016-06-22] MEDS ORDERED: diphenhydrAMINE HCL 50 MG/ML VIAL IV PUSH ONE ×2 (21:00→22:15)
[2016-06-22 21:05] VITALS: BP 135/90; PULSE 87; RESP 18; O2SAT 100
[2016-06-22 21:20] VITALS: BP 127/81; PULSE 90; RESP 18; O2SAT 99
[2016-06-22 22:02] LABS: BLOOD, URINE NEG (NEG); GLUCOSE,URINE NEG (NEG); KETONE, URINE NEG (NEG); NITRITE,URINE NEG (NEG); PH, URINE 7.5 (5.0-8.5)
[2016-06-22 22:09] LABS: URINE COLOR YELLOW (YELLW/STRAW)
[2016-06-22 22:10] LABS: COMMENT (UR) CULT NOT INDICATED; CULTURE IF INDICATED CULT NOT INDICATED; SQUAMOUS EPITHELIAL CELL URINE > 8 /hpf (0-5); WBC, URINE 0-2 /hpf (0-5)
[2016-06-22 22:20] VITALS: BP 148/92; PULSE 94; RESP 18; O2SAT 100
--- NOTE | 2016-06-22 22:30 | RADHPO ---
EXAM DATE/TIME: 06/22/2016 21:23 [facility] COMPARISON: No previous studies available for comparison. INDICATIONS : Right abdominal pain. History of right renal transplant. ORAL CONTRAST: No oral contrast ingested. RADIATION DOSE: 19.09 CTDIvol (mGy) MEDICAL HISTORY : Renal insufficiency. SURGICAL HISTORY : Cholecystectomy. Right renal transplant. ENCOUNTER: Initial ACUITY: 1 day PAIN SCALE: 10/10 LOCATION: Right abdomen TECHNIQUE: Volumetric scanning of the abdomen and pelvis was performed. Using automated exposure control and ad justment of the mA and/or kV according to patient size, radiation dose was kept as low as reasonably achievable to obtain optimal diagnostic quality images. FINDINGS: LOWER LUNGS: The visualized lower lungs are clear. LIVER: Homogeneous density without lesion. There is no dilation of the biliary tree. Gallbladder surgically absent.. SPLEEN: Normal size without lesion. PANCREAS: Within normal limits. KIDNEYS: The [place] kidneys are atrophic. A right pelvic transplant kidney appears focally unremarkable with n o evidence of hydronephrosis ADRENAL GLANDS: Within normal limits. VASCULAR: There is no aortic aneurysm. BOWEL/MESENTERY: The stomach, small bowel, and colon demonstrate no acute abnormality. There is no free intraperitone al air or fluid. ABDOMINAL WALL: Varicosities mainly involving the left abdominal wall RETROPERITONEUM: There is no lymphadenopathy. BLADDER: No wall thickening or mass. REPRODUCTIVE: Within normal limits. INGUINAL: There is no lymphadenopathy or hernia. MUSCULOSKELETAL: Within normal limits for patient age. CONCLUSION: No acute CT findings in the abdomen or pelvis. Ritchie Cisneros MD on June 22, 2016 at 22:26 Board Certified Radiologist. This report was verified electronically.
[2016-06-22 23:30] VITALS: BP 123/74; PULSE 88; RESP 18; O2SAT 99
== END 2016-06-22 23:44 | disposition home or self-care (01) ==
LOC: PHED 19:16
DX: R10.9 Unspecified abdominal pain (principal); M32.9 Systemic lupus erythematosus, unspecified; I10 Essential (primary) hypertension; Z72.0 Tobacco use; Z94.0 Kidney transplant status; Z79.899 Other long term (current) drug therapy
CPT/HCPCS: 74176; 80053; 81001; 83690; 85025; 96361; 96374; 96375; 96376; 99284; J1200; J1642; J2270; J2405; J7030

== ENCOUNTER 2016-07-25 01:23 | Emergency (ER) | payer MEDICARE, MEDICAID ==
[~2016-07-25] VITALS: Ht 170.2 cm; Wt 97.9 kg
[~2016-07-25 01:23] MED LIST changes: -BENT20TA PO; -CEFT500T3 PO; -DIPH1TAB36 PO; -METR-1 PO; -NEOMOIN RIGHT EYE; -POTA10CA PO
[2016-07-25 01:32] VITALS: BP 135/89; PULSE 79; RESP 16; TEMP 98.6; O2SAT 98
[2016-07-25 02:00] LABS: BLOOD, URINE NEG (NEG); GLUCOSE,URINE NEG (NEG); KETONE, URINE NEG (NEG); NITRITE,URINE NEG (NEG); PH, URINE 6.5 (5.0-8.5)
[2016-07-25 02:05] LABS: RBC, URINE 0-2 /hpf (0-3); SQUAMOUS EPITHELIAL CELL URINE 0-5 /hpf (0-5); URINE COLOR YELLOW (YELLW/STRAW); WBC, URINE 0-2 /hpf (0-5)
[2016-07-25 02:06] LABS: COMMENT (UR) CULT NOT INDICATED; CULTURE IF INDICATED CULT NOT INDICATED
[2016-07-25 02:48] VITALS: BP 145/86; PULSE 79; RESP 18; O2SAT 98
[2016-07-25] MEDS ORDERED: SODIUM CHLORIDE 0.9% FLUSH 10 ML FLUSH IV FLUSH PRN (03:30)
[2016-07-25 03:39] LABS: AUTOMATED NEUTROPHIL # 3.9 TH/MM3 (1.8-7.7); BASOPHIL % 0.6 % (0.0-2.0); EOSINOPHIL % 0.3 % (0.0-4.0); HEMO FLAGS DIFF FINAL; LYMPH % 33.1 % (9.0-44.0); LYMPHOCYTE # 2.2 TH/MM3 (1.0-4.8); MEAN CELL VOLUME 87.9 FL (80.0-100.0); MEAN CORPUSCULAR HEMOGLOBIN 28.3 PG (27.0-34.0); MEAN CORPUSCULAR HGB CONC 32.2 % (32.0-36.0); MONO % 9.6 % (0.0-8.0); NEUT % 56.4 % (16.0-70.0); PLATELET COUNT 138 TH/MM3 (150-450); RED CELL DISTRIBUTION WIDTH 14.8 % (11.6-17.2); WHITE BLOOD COUNT 6.7 TH/MM3 (4.0-11.0)
--- NOTE | 2016-07-25 03:46 | PD ---
HPI Chief Complaint: Flank/Kidney Pain Time Seen by Provider: 03:15 Travel History International Travel<30 days: No Contact w/Intl Traveler<30days: No Traveled to known affect area: No History of Present Illness HPI Is a 30-year-old female presents to emergency department for evaluation of right lower quadrant becoming left lower quadrant abdominal pain. Patient states this happens to her fairly freely. She has a history of lupus nephritis was on dialysis for some time and then had a kidney transplant. She denies any fever states she's been taking her immunosuppressants as prescribed. Denies any nausea vomiting diarrhea constipation does endorse vaginal discharge and states "sometimes I can't tell the difference between a urinary tract infection and a yeast infection." PFSH Past Medical History Arthritis: No Autoimmune Disease: Yes (LUPUS) Anxiety: Yes Depression: Yes Heart Rhythm Problems: No Cancer: No Cardiovascular Problems: Yes (HTN) High Cholesterol: No Chemotherapy: No Chest Pain: No Congestive Heart Failure: No Cerebrovascular Accident: Yes (PT DENIES) Diabetes: No Dialysis: Yes (HX of PRIOR TO KIDNEY TRANSPLANT 2009) Diminished Hearing: No Endocrine: No Gastrointestinal Disorders: No GERD: Yes Glaucoma: No Headaches: Yes Hepatitis: No Hiatal Hernia: No Heparin Induced Thrombocytopen: No Hypertension: Yes Immune Disorder: Yes (LUPUS) Implanted Vascular Access Dvce: Yes (fistula in LUE, R PORT infusaport) Kidney Stones: No Musculoskeletal: Yes Neurologic: Yes Psychiatric: Yes Reproductive: No Respiratory: No Immunizations Current: Yes Migraines: Yes Myocardial Infarction: No Radiation Therapy: No Seizures: Yes Sickle Cell Disease: No Thyroid Disease: No Ulcer: No Tetanus Vaccination: > 5 Years Influenza Vaccination: Yes PNEUMOCCOCAL Vaccine (Year): 2 ?: Not LMP: 07/10/16 : 0 Para: 0 Miscarriage: 0 : 0 Past Surgical History Abdominal Surgery: Yes AICD: No Appendectomy: No Arteriovenous Shunt: Yes (left arm, DOESN'T WORK) Cardiac Surgery: No Cholecystectomy: Yes Ear Surgery: No Endocrine Surgery: Yes (RIGHT KIDNEY TRANSPLANT 2009) Eye Surgery: No Genitourinary Surgery: Yes (RIGHT KIDNEY TRANSPLANT 2009) Gynecologic Surgery: No Insulin Pump: No Joint Replacement: No Neurologic Surgery: No Oral Surgery: No Pacemaker: No Thoracic Surgery: No Other Surgery: Yes (FISTULA LEFT UPPER ARM) Social History Alcohol Use: Yes (rare) Tobacco Use: Yes Substance Use: No (DENIES) Allergies-Medications (Allergen,Severity, Reaction): Coded Allergies: Dilaudid (Verified Allergy, Severe, SEIZURE, 07/25/16) Levofloxacin (Verified Allergy, Severe, HIVES, 07/25/16) Motrin (Verified Allergy, Severe, KIDNEY TRANSPLANT, 07/25/16) Oxycodone (Verified Allergy, Severe, HALLUCINATIONS, 07/25/16) Penicillin (Verified Allergy, Severe, HIVES, 07/25/16) Reported Meds & Prescriptions Reported Meds & Active Scripts Active Diflucan (Fluconazole) 150 Mg Tab 150 Mg PO ONCE Take on 08/01/2016 [place] (Hydrocodone-Acetaminophen) 10-325 Mg Tab 1 Tab PO Q4H PRN Reported Topamax (Topiramate) 100 Mg Tab 100 Mg PO TID 30 Days Depakote ER (Divalproex Sodium) 500 Mg Allyson 1,000 Mg PO BID 30 Days Keppra (Levetiracetam) 500 Mg Tab 1,500 Mg PO BID 30 Days Acyclovir 200 Mg Cap 200 Mg PO BID Lomotil (Diphenoxylate-Atropine) 2.5-0.025 Mg Tab 1 Tab PO QID PRN Dfahknhlhx-Hfrkxmkqoxwku-Brwjcrsb 50-325-40 Mg Tab 2 Tab PO Q6HR PRN Do not exceed 6 tablets/day. Amlodipine (Amlodipine Besylate) 10 Mg Tab 10 Mg PO DAILY Prograf (Tacrolimus) 1 Mg Cap 4 Mg PO Q12HR Prednisone 5 Mg Tab 5 Mg PO DAILY Omeprazole 20 Mg Tab 20 Mg PO BID Mycophenolate (Mycophenolate Mofetil) 500 Mg Tab 500 Mg PO BID Lasix (Furosemide) 20 Mg Tab 20 Mg PO DAILY PRN Coreg (Carvedilol) 12.5 Mg Tab 12.5 Mg PO BID Review of Systems Except as stated in HPI: all other systems reviewed are Neg Physical Exam Narrative GENERAL: Well-developed well-nourished no apparent distress SKIN: Focused skin assessment warm/dry. HEAD: Atraumatic. Normocephalic. EYES: Pupils equal and round. No scleral icterus. No injection or drainage. ENT: No nasal bleeding or discharge. Mucous membranes pink and moist. NECK: Trachea midline. No JVD. CARDIOVASCULAR: Regular rate and rhythm. No murmur appreciated. RESPIRATORY: No accessory muscle use. Clear to auscultation. Breath sounds equal bilaterally. GASTROINTESTINAL: Abdomen soft, non-tender, nondistended. Hepatic and splenic margins not palpable. Abdomen is benign. Genitourinary: Patient has cordlike discharge in the vaginal vault, here into the vilchis. Consistent with candidal Vaginitis, no cervical motion tenderness no bimanual tenderness. MUSCULOSKELETAL: No obvious deformities. No clubbing. No cyanosis. No edema. NEUROLOGICAL: Awake and alert. No obvious cranial nerve deficits. Motor grossly within normal limits. Normal speech. PSYCHIATRIC: Appropriate mood and affect; insight and judgment normal. Data Data Last Documented VS Vital Signs Date Time Temp Pulse Resp B/P Pulse Ox O2 Delivery O2 Flow Rate FiO2 07/25/16 05:48 79 20 122/68 98 07/25/16 05:06 97.9 Orders Urinalysis - C+S If Indicated (07/25/16 01:32) Ed Urine Pregnancytest Poc (07/25/16 01:32) Complete Blood Count With Diff (07/25/16 03:20) Comprehensive Metabolic Panel (07/25/16 03:20) Lipase (07/25/16 03:20) Prothrombin Time / Inr (Pt) (07/25/16 03:20) Act Partial Throm Time (Ptt) (07/25/16 03:20) Iv Access Insert/Monitor (07/25/16 03:20) Ecg Monitoring (07/25/16 03:20) Oximetry (07/25/16 03:20) Sodium Chloride 0.9% Flush (Ns Flush) (07/25/16 03:30) C-Reactive Protein (Crp) (07/25/16 03:20) [place] Sedimentation Rate (07/25/16 03:20) Wet Prep Profile (07/25/16 04:01) Gc And Chlamydia Pcr (07/25/16 04:01) Diphenhydramine Inj (Benadryl Inj) (07/25/16 04:15) Morphine Inj (Morphine Inj) (07/25/16 05:00) Fluconazole (Diflucan) (07/25/16 05:15) Diphenhydramine Inj (Benadryl Inj) (07/25/16 05:30) Heparin Central Flush (Heparin Central F (07/25/16 09:00) Heparin Central Flush (Heparin Central F (07/25/16 05:38) Labs Laboratory Tests Test 07/25/16 07/25/16 07/25/16 01:40 03:30 04:50 Urine Color YELLOW Urine Turbidity CLEAR Urine pH 6.5 Urine Specific [place] 1.010 Urine Protein NEG mg/dL Urine Glucose (UA) NEG mg/dL Urine Ketones NEG mg/dL Urine Occult Blood NEG Urine Nitrite NEG Urine Bilirubin NEG Urine Leukocyte Esterase NEG Urine RBC 0-2 /hpf Urine WBC 0-2 /hpf Urine Squamous Epithelial 0-5 /hpf Cells Urine Bacteria NONE /hpf Microscopic Urinalysis Comment CULT NOT INDICATED Chlamydia trachomatis DNA NOT DETECTED (PCR) Neisseria gonorrhoeae DNA NOT DETECTED (PCR) White Blood Count 6.7 TH/MM3 Red Blood Count 4.10 MIL/MM3 Hemoglobin 11.6 GM/DL Hematocrit 36.0 % Mean Corpuscular Volume 87.9 FL Mean Corpuscular Hemoglobin 28.3 PG Mean Corpuscular Hemoglobin 32.2 % Concent Red Cell Distribution Width 14.8 % Platelet Count 138 TH/MM3 Mean Platelet Volume 8.4 FL Neutrophils (%) (Auto) 56.4 % Lymphocytes (%) (Auto) 33.1 % Monocytes (%) (Auto) 9.6 % Eosinophils (%) (Auto) 0.3 % Basophils (%) (Auto) 0.6 % Neutrophils # (Auto) 3.9 TH/MM3 Lymphocytes # (Auto) 2.2 TH/MM3 Monocytes # (Auto) 0.6 TH/MM3 Eosinophils # (Auto) 0.0 TH/MM3 Basophils # (Auto) 0.0 TH/MM3 CBC Comment DIFF FINAL Differential Comment Erythrocyte Sedimentation Rate 1 mm/hr Prothrombin Time 12.4 SEC Prothromb Time International 1.1 RATIO Ratio Activated Partial 31.4 SEC Thromboplast Time Sodium Level 142 MEQ/L Potassium Level 3.6 MEQ/L Chloride Level 111 MEQ/L Carbon Dioxide Level 22.6 MEQ/L Anion Gap 8 MEQ/L Blood Urea Nitrogen 13 MG/DL Creatinine 1.10 MG/DL Estimat Glomerular Filtration 71 ML/MIN Rate Random Glucose 99 MG/DL Calcium Level 7.9 MG/DL Total Bilirubin 0.2 MG/DL Aspartate Amino Transf 6 U/L (AST/SGOT) Alanine Aminotransferase 11 U/L (ALT/SGPT) Alkaline Phosphatase 67 U/L C-Reactive Protein 0.33 MG/DL Total Protein 7.3 GM/DL Albumin 3.3 GM/DL Lipase 50 U/L Clue Cells (Wet Prep) NONE SEEN Vaginal Trichomonas (Wet Prep) NONE SEEN Vaginal Yeast (Wet Prep) NONE SEEN MDM Medical Decision Making Medical Screen Exam Complete: Yes Emergency Medical Condition: Yes Differential Diagnosis Abdominal pain, appendicitis unlikely, acute kidney failure unlikely, acute kidney rejection unlikely, UTI, candidal vaginitis,, Narrative Course Patient roomed in emergency department, her abdomen is benign. Initial workup including is here CRP CBC CMP are negative. Vaginal exam did show cannula vaginitis. test negative. No indication for CT abdomen and this time. She was given morphine 2 doses of Benadryl because she stated that she was having itching. She then called nursing and stated that she wanted home she had a test later this afternoon. Discussed with her need follow-up with her transplant physician and return to ED criteria. Diagnosis Primary Impression: Abdominal pain Qualified Code: R10.9 - Abdominal pain, unspecified location Additional Impression: Vaginal candidiasis Additional Instructions: Follow up with your transplant physician on wednesday. Med/Other Pt SpecificInfo: Prescription(s) given Scripts Fluconazole (Diflucan)150 Mg [id number] Mg PO ONCE #1 TAB Ref 0 Take on 08/01/2016 Prov:Adis Samaniego MD 07/25/16 Disposition: 01 DISCHARGE HOME Condition: Stable Adis Samaniego MD Jul 25, 2016 03:46
[2016-07-25 03:50] LABS: CHLORIDE 111 MEQ/L (98-107); POTASSIUM 3.6 MEQ/L (3.5-5.1); SODIUM (NA) 142 MEQ/L (136-145)
[2016-07-25 03:53] LABS: ANION GAP 8 MEQ/L (5-15); BICARBONATE 22.6 MEQ/L (21.0-32.0)
[2016-07-25 03:54] LABS: APTT (PATIENT) 31.4 SEC (24.3-30.1); BLOOD UREA NITROGEN 13 MG/DL (7-18); INTERNATIONAL NORMALIZED RATIO 1.1 RATIO; PROTHROMBIN TIME - PATIENT 12.4 SEC (9.8-11.6)
[2016-07-25 03:56] LABS: ALT (GPT) 11 U/L (10-53); AST (GOT) 6 U/L (15-37); GLOMERULAR FILTRATION RATE 71 ML/MIN (>89)
[2016-07-25 03:58] LABS: TOTAL BILIRUBIN ADULT 0.2 MG/DL (0.2-1.0)
[2016-07-25 03:59] LABS: ALKALINE PHOSPHATASE 67 U/L (45-117)
[2016-07-25] MEDS ORDERED: diphenhydrAMINE HCL 50 MG/ML VIAL IV PUSH ONE ×2 (04:15→05:30)
[2016-07-25] MEDS ORDERED: MORPHINE SULFATE 8 MG/ML INJ IV PUSH ONE (05:00)
[2016-07-25] MEDS ORDERED: DIFL150T PO (05:03)
[2016-07-25 05:06] VITALS: BP 127/75; PULSE 81; RESP 20; TEMP 97.9; O2SAT 98
[2016-07-25] MEDS ORDERED: FLUCONAZOLE 100 MG TAB PO ONE (05:15)
[2016-07-25 05:45] VITALS: RESP 20
[2016-07-25 05:48] VITALS: BP 122/68
[2016-07-25 12:18] LABS: CHLAMYDIA PCR NOT DETECTED (NOT DETECT); NEISSERIA PCR NOT DETECTED (NOT DETECT)
== END 2016-07-25 06:08 | disposition home or self-care (01) ==
LOC: PHED 01:23
DX: R10.9 Unspecified abdominal pain (principal); B37.3 Candidiasis of vulva and vagina; M32.14 Glomerular disease in systemic lupus erythematosus; I10 Essential (primary) hypertension; Z72.0 Tobacco use; Z94.0 Kidney transplant status; Z79.899 Other long term (current) drug therapy; Z86.59 Personal history of other mental and behavioral disorders; Z86.79 Personal history of other diseases of the circulatory system; Z87.39 Personal history of other diseases of the musculoskeletal system and connective tissue; Z86.69 Personal history of other diseases of the nervous system and sense organs
CPT/HCPCS: 80053; 81001; 83690; 84703; 85025; 85610; 85652; 85730; 86140; 87210; 87491; 87591; 96374; 96375; 96376; 99284; J1200; J1642; J2270

== ENCOUNTER 2016-08-27 22:42 | Emergency (ER) | payer MEDICARE, MEDICAID ==
[~2016-08-27] VITALS: Ht 170.2 cm; Wt 97.8 kg
[~2016-08-27 22:42] MED LIST changes: +DIFL150T PO
[2016-08-27 22:51] VITALS: BP 133/81; PULSE 85; RESP 18; TEMP 98.4; O2SAT 100
[2016-08-27 23:55] VITALS: BP 122/69; PULSE 78; RESP 17; O2SAT 97
[2016-08-28] MEDS ORDERED: diphenhydrAMINE HCL 50 MG/ML VIAL IV PUSH ONE (00:15)
[2016-08-28] MEDS ORDERED: MORPHINE SULFATE 8 MG/ML INJ IV PUSH ONE (00:15)
[2016-08-28] MEDS ORDERED: SODIUM CHLOR 0.9% 1000 ML INJ 1,000 ML IV ONE (00:15)
[2016-08-28] MEDS ORDERED: METOCLOPRAMIDE HCL 10 MG/2 ML VIAL IV PUSH ONE (00:15)
[2016-08-28 00:50] VITALS: BP 125/66; PULSE 82; RESP 16; O2SAT 97
--- NOTE | 2016-08-28 01:04 | RADRPT ---
EXAM DATE/TIME: 08/28/2016 00:37 [facility] COMPARISON: CT BRAIN W/O CONTRAST, May 20, 2016, 22:00. INDICATIONS : Headache behind right eye. RADIATION DOSE: 65.50 CTDIvol (mGy) MEDICAL HISTORY : Lupus. Seizures. Hypertension.migraines SURGICAL HISTORY : Nephrectomy, right. Cholecystectomy.cataract left eye ENCOUNTER: Initial ACUITY: 3 days PAIN SCALE: 8/10 LOCATION: Right cranial TECHNIQUE: Multiple contiguous axial images were obtained of the head. Using automated exposure control and adj ustment of the mA and/or kV according to patient size, radiation dose was kept as low as reasonably a chievable to obtain optimal diagnostic quality images. DICOM format image data is available electro nically for review and comparison. FINDINGS: There is a small mucus retention cyst in the left maxillary sinus. No fractures are seen. Ventricles and cisterns are of normal size and configuration. No hemorrhage, infarct, or mass. CONCLUSION: No acute disease. Shun Weiner MD on August 28, 2016 at 1:03 Board Certified Radiologist. This report was verified electronically.
[2016-08-28 01:40] VITALS: BP 119/79; PULSE 72; RESP 17; O2SAT 98
[2016-08-28] MEDS ORDERED: REGL10TA5 PO (01:53)
--- NOTE | 2016-08-28 01:54 | PD ---
HPI Chief Complaint: Headache Time Seen by Provider: 00:02 Travel History International Travel<30 days: No Contact w/Intl Traveler<30days: No Traveled to known affect area: No History of Present Illness HPI 30 year-old female presents to the emergency department complaining of headache with some involvement of the right eye. Patient states last week she underwent cataract repair of the left eye and is scheduled next Wednesday to have cataract repair of the right eye. Patient was just seen by her yarn packer for some discomfort to her right eye which was felt to be related to the visual discrepancy as she is correcting her vision after repair of the cataract in her left eye. Patient denies any loss of vision double vision or star burst or floaters affecting the right eye. Patient states that she typically takes Lortab 10 mg 2 pills 4 onset migraine because she has severe migraines and is followed by Dr. Kelley for her history of migraine as well as history of seizure disorder. Patient states when she is out of her Lortab she takes Fioricet. Patient states she did take Fioricet but did not provide adequate relief. Patient reports that periodically on a rare occasion her migraines to escalate such that did not respond to lzwz-xkg-ecnbewx medication or prescription medications for her migraine. Patient presents at this time stating that she feels she needs medication to the emergency department to correct her migraine. Headache is not sudden onset thunderclap or worst ever. Patient is typical being unilateral migraine with associated photophobia headache nausea and mild phonophobia. Patient denies any other concerns or complaints. Patient denies any fever chills neck stiffness upper or lower extremity numbness tingling or weakness or ataxia of gait. Patient has significant history for lupus renal failure with renal transplant transient hemodialysis hypertension seizure disorder migraines Rlzomc-d-Gplx renal transplant previous AV fistula and ongoing tobacco use. Patient rates headache pain is 8/10 intensity. [facility] Past Medical History Narrative Medical lupus renal failure with renal transplant transient hemodialysis hypertension seizure disorder migraines Vxanza-k-Isuc renal transplant previous AV fistula; tobacco use; nursing notes reviewed Arthritis: No Autoimmune Disease: Yes (LUPUS) Anxiety: Yes Depression: Yes Heart Rhythm Problems: No Cancer: No Cardiovascular Problems: Yes (HTN) High Cholesterol: No Chemotherapy: No Chest Pain: No Congestive Heart Failure: No Cerebrovascular Accident: Yes (PT DENIES) Diabetes: No Dialysis: Yes (no) Diminished Hearing: No Endocrine: No Gastrointestinal Disorders: No GERD: Yes Glaucoma: No Headaches: Yes Hepatitis: No Hiatal Hernia: No Heparin Induced Thrombocytopen: No Hypertension: Yes Immune Disorder: Yes (LUPUS) Implanted Vascular Access Dvce: Yes (fistula in LUE, R PORT infusaport) Kidney Stones: No Musculoskeletal: Yes Neurologic: Yes Psychiatric: Yes Reproductive: No Respiratory: No Immunizations Current: Yes Migraines: Yes Myocardial Infarction: No Radiation Therapy: No Seizures: Yes Sickle Cell Disease: No Thyroid Disease: No Ulcer: No PNEUMOCCOCAL Vaccine (Year): 2 : 0 Para: 0 Miscarriage: 0 : 0 Past Surgical History Abdominal Surgery: Yes AICD: No Appendectomy: No Arteriovenous Shunt: Yes (left arm, DOESN'T WORK) Cardiac Surgery: No Cholecystectomy: Yes Ear Surgery: No Endocrine Surgery: Yes (RIGHT KIDNEY TRANSPLANT 2009) Eye Surgery: No Genitourinary Surgery: Yes (RIGHT KIDNEY TRANSPLANT 2009) Gynecologic Surgery: No Insulin Pump: No Joint Replacement: No Neurologic Surgery: No Oral Surgery: No Pacemaker: No Thoracic Surgery: No Other Surgery: Yes (FISTULA LEFT UPPER ARM) Social History Alcohol Use: Yes (rare) Tobacco Use: Yes Substance Use: No (DENIES) Allergies-Medications (Allergen,Severity, Reaction): Coded Allergies: Dilaudid (Verified Allergy, Severe, SEIZURE, 08/28/16) Levofloxacin (Verified Allergy, Severe, HIVES, 08/28/16) Motrin (Verified Allergy, Severe, KIDNEY TRANSPLANT, 08/28/16) Oxycodone (Verified Allergy, Severe, HALLUCINATIONS, 08/28/16) Penicillin (Verified Allergy, Severe, HIVES, 08/28/16) Reported Meds & Prescriptions Reported Meds & Active Scripts Active Reglan (Metoclopramide HCl) 10 Mg Tab 10 Mg PO Q6HR PRN [place] (Hydrocodone-Acetaminophen) 10-325 Mg Tab 1 Tab PO Q4H PRN Reported Topamax (Topiramate) 100 Mg Tab 100 Mg PO BID 30 Days Depakote ER (Divalproex Sodium) 500 Mg Al[place]son 500 Mg PO BID 30 Days Keppra (Levetiracetam) 500 Mg Tab 1,500 Mg PO BID 30 Days Acyclovir 200 Mg Cap 200 Mg PO BID Lomotil (Diphenoxylate-Atropine) 2.5-0.025 Mg Tab 1 Tab PO QID PRN Egeuyhibve-Wdumlunaznipc-Pronlflp 50-325-40 Mg Tab 2 Tab PO Q6HR PRN Do not exceed 6 tablets/day. Amlodipine (Amlodipine Besylate) 10 Mg Tab 10 Mg PO DAILY Prograf (Tacrolimus) 1 Mg Cap 3 Mg PO Q12HR Prednisone 5 Mg Tab 5 Mg PO DAILY Omeprazole 20 Mg Tab 20 Mg PO BID Mycophenolate (Mycophenolate Mofetil) 500 Mg Tab 500 Mg PO BID Lasix (Furosemide) 20 Mg Tab 20 Mg PO DAILY PRN Coreg (Carvedilol) 12.5 Mg Tab 12.5 Mg PO BID Review of Systems Except as stated in HPI: all other systems reviewed are Neg General / Constitutional: No: Fever, Chills Eyes: Positive: Photophobia, No: Diploplia, Blurred Vision, Blindness HENT: Positive: Headaches, No: Neck Stiffness Cardiovascular: No: Chest Pain or Discomfort Respiratory: No: Shortness of Breath Gastrointestinal: Positive: Nausea, No: Vomiting, Abdominal Pain Genitourinary: No: Decreased Urinary Output, Flank Pain Musculoskeletal: No: Myalgias, Arthralgias Skin: No Rash Neurologic: Positive: Headache, No: Weakness, Dizziness, Syncope, Focal Abnormalities, Coordination Problem, Change in Mentation, Slurred Speech, Paresthesia, Incontinence, Seizures Psychiatric: No: Anxiety, Depression Hematologic/Lymphatic: No: Lymph Node Enlargement Physical Exam Narrative GENERAL: Well-developed well-nourished female in no acute distress no respiratory distress GCS 15 SKIN: Warm and dry. HEAD: Atraumatic. Normocephalic. EYES: Pupils equal and round. No scleral icterus. No injection or drainage. Funduscopic exam no papilledema bilaterally pupils equal round reactive to light extraocular muscles intact no injection no gross hyphema ENT: No nasal bleeding or discharge. Mucous membranes pink and moist. Airway is patent NECK: Trachea midline. No JVD. Supple no meningismus no nuchal rigidity CARDIOVASCULAR: Regular rate and rhythm. RESPIRATORY: No accessory muscle use. Clear to auscultation. Breath sounds equal bilaterally. GASTROINTESTINAL: Abdomen soft, non-tender, nondistended. Hepatic and splenic margins not palpable. MUSCULOSKELETAL: Extremities without clubbing, cyanosis, or edema. No obvious deformities. NEUROLOGICAL: Awake and alert. No obvious cranial nerve deficits. Motor grossly within normal limits. Five out of 5 muscle strength in the arms and legs. Normal speech. PSYCHIATRIC: Appropriate mood and affect; insight and judgment normal. Data Data Last Documented VS Vital Signs Date Time Temp Pulse Resp B/P Pulse Ox O2 Delivery O2 Flow Rate FiO2 08/28/16 02:48 98 08/28/16 02:09 Room Air 08/28/16 01:40 72 17 119/79 08/27/16 22:[address] Brain W/O Iv Contrast(Rout) (08/28/16 00:02) Oximetry (08/28/16 00:02) Morphine Inj (Morphine Inj) (08/28/16 00:15) Diphenhydramine Inj (Benadryl Inj) (08/28/16 00:15) Metoclopramide Inj (Reglan Inj) (08/28/16 00:15) Sodium Chlor 0.9% 1000 Ml Inj (Ns 1000 M (08/28/16 00:15) Heparin Central Flush (Heparin Central F (08/28/16 02:15) MDM Medical Decision Making Medical Screen Exam Complete: Yes Emergency Medical Condition: Yes Medical Record Reviewed: Yes Interpretation(s) Last Impressions Head CT 08/28/16 0002 Signed Impressions: Service Date/Time: Sunday, August 28, 2016 00:37 - CONCLUSION: No acute disease. Shun Weiner MD Vital Signs Date Time Temp Pulse Resp B/P Pulse Ox O2 Delivery O2 Flow Rate FiO2 08/28/16 00:05 Room Air 08/28/16 00:05 Room Air 08/27/16 22:51 98.4 85 18 133/81 100 Differential Diagnosis Migraine, tension headache, ICH, retinal detachment, eyestrain Narrative Course Agtswc-u-Rwec accessed patient administered 1 L normal saline morphine 4 mg IV Reglan 10 mg IV Benadryl [address] brain noncontrast ordered Patient resting comfortably headache essentially resolved patient feels well desirous of being discharged from CT brain noncontrast reveals no acute abnormality At this point I'm patient is stable for outpatient management and has had control of her recurrent migraine that is not intractable Diagnosis Primary Impression: Migraine headache Qualified Code: G43.009 - Migraine without aura and without status migrainosus , not intractable Referrals: Primary Care Physician call for appointment Patient Instructions: General Instructions, Narcotic given in the ED Additional Instructions: Follow-up with your primary care provider and neurologist as scheduled Return to the emergency department for any concerns or change in condition Follow-up with yarn packer as planned Increase fluid hydration No school or work times one day Take medication as prescribed as needed for nausea and/or vomiting Monitor temperature every 4 hours with thermometer take as needed acetaminophen/ Tylenol every 4 hours for fever 100.4F or greater Med/Other Pt SpecificInfo: Prescription(s) given, No Change to Meds Scripts Metoclopramide (Reglan)10 Mg Tab10 Mg PO Q6HR PRN (NAUSEA OR VOMITING) #10 TAB Ref 0 Prov:Edelmira Alexandra MD 08/28/16 Disposition: 01 DISCHARGE HOME Condition: Stable Edelmira Alexandra MD Aug 28, 2016 01:54
== END 2016-08-28 02:47 | disposition home or self-care (01) ==
LOC: PHED 22:42
DX: G43.009 Migraine without aura, not intractable, without status migrainosus (principal)
CPT/HCPCS: 70450; 96361; 96374; 96375; 99285; J1200; J1642; J2270; J2765; J7030

== ENCOUNTER 2016-10-20 15:32 | Emergency (ER) | payer MEDICARE, MEDICAID ==
[~2016-10-20] VITALS: Ht 170.2 cm; Wt 100.0 kg
[~2016-10-20 15:32] MED LIST changes: -DIFL150T PO; +REGL10TA5 PO
[2016-10-20 15:34] VITALS: BP 118/72; PULSE 81; RESP 15; TEMP 98.4; O2SAT 99
== END 2016-10-20 17:00 | disposition left against medical advice (07) ==
LOC: NED 15:32
DX: R10.9 Unspecified abdominal pain (principal); Z53.21 Procedure and treatment not carried out due to patient leaving prior to being seen by health care provider
CPT/HCPCS: 99281

== ENCOUNTER 2016-11-19 17:58 | Emergency (ER) | payer MEDICARE, MEDICAID ==
[~2016-11-19] VITALS: Ht 170.2 cm; Wt 96.4 kg
[2016-11-19 18:05] VITALS: BP 132/70; PULSE 95; RESP 18; TEMP 98.5; O2SAT 99
[2016-11-19] MEDS ORDERED: ONDANSETRON HCL 4 MG/2 ML VIAL IVP ONE (18:30)
--- NOTE | 2016-11-19 18:34 | PD ---
HPI Chief Complaint: Abdominal Pain Time Seen by Provider: 18:22 Travel History International Travel<30 days: No Contact w/Intl Traveler<30days: No Traveled to known affect area: No History of Present Illness HPI This patient complains of nausea and vomiting and diarrhea for one to 2 days. Also complains of some periodic abdominal cramping in the right upper quadrant. She has no gallbladder. She periodically gets spells of abdominal discomfort. The patient was seen and examined in the presence of the nurse. Symptoms severity is moderate. No bleeding. No fever. No lower quadrant abdominal pains. No alleviating factors. Exacerbating factors. Patient has had a kidney transplant and no longer on dialysis. PFSH Past Medical History Arthritis: No Autoimmune Disease: Yes (LUPUS) Anxiety: Yes Depression: Yes Heart Rhythm Problems: No Cancer: No Cardiovascular Problems: Yes (HTN) High Cholesterol: No Chemotherapy: No Chest Pain: No Congestive Heart Failure: No Cerebrovascular Accident: Yes (PT DENIES) Diabetes: No Dialysis: Yes (no) Diminished Hearing: No Endocrine: No Gastrointestinal Disorders: No GERD: Yes Glaucoma: No Headaches: Yes Hepatitis: No Hiatal Hernia: No Heparin Induced Thrombocytopen: No Hypertension: Yes Immune Disorder: Yes (LUPUS) Implanted Vascular Access Dvce: Yes (fistula in LUE, R PORT infusaport) Kidney Stones: No Musculoskeletal: Yes Neurologic: Yes Psychiatric: Yes Reproductive: No Respiratory: No Immunizations Current: Yes Migraines: Yes Myocardial Infarction: No Radiation Therapy: No Seizures: Yes Sickle Cell Disease: No Thyroid Disease: No Ulcer: No Tetanus Vaccination: < 5 Years Influenza Vaccination: Yes PNEUMOCCOCAL Vaccine (Year): 2 ?: Not LMP: 10/27/2016 : 0 Para: 0 Miscarriage: 0 : 0 Past Surgical History Abdominal Surgery: Yes AICD: No Appendectomy: No Arteriovenous Shunt: Yes (left arm, DOESN'T WORK) Cardiac Surgery: No Cholecystectomy: Yes Ear Surgery: No Endocrine Surgery: Yes (RIGHT KIDNEY TRANSPLANT 2009) Eye Surgery: No Genitourinary Surgery: Yes (RIGHT KIDNEY TRANSPLANT 2009) Gynecologic Surgery: No Insulin Pump: No Joint Replacement: No Neurologic Surgery: No Oral Surgery: No Pacemaker: No Thoracic Surgery: No Other Surgery: Yes (FISTULA LEFT UPPER ARM) Social History Alcohol Use: Yes (rare) Tobacco Use: Yes (3-4 cigs daily) Substance Use: No (DENIES) Allergies-Medications (Allergen,Severity, Reaction): Coded Allergies: hydromorphone (Unverified Allergy, Severe, SEIZURE, 11/19/16) ibuprofen (Unverified Allergy, Severe, KIDNEY TRANSPLANT, 11/19/16) levofloxacin (Unverified Allergy, Severe, HIVES, 11/19/16) oxycodone (Unverified Allergy, Severe, HALLUCINATIONS, 11/19/16) penicillin G (Unverified Allergy, Severe, HIVES, 11/19/16) Reported Meds & Prescriptions Reported Meds & Active Scripts Active Reglan (Metoclopramide HCl) 10 Mg Tab 10 Mg PO Q6HR PRN [place] (Hydrocodone-Acetaminophen) 10-325 Mg Tab 1 Tab PO Q4H PRN Reported Topamax (Topiramate) 100 Mg Tab 100 Mg PO BID 30 Days Depakote ER (Divalproex Sodium) 500 Mg [place] 500 Mg PO BID 30 Days Keppra (Levetiracetam) 500 Mg Tab 1,500 Mg PO BID 30 Days Acyclovir 200 Mg Cap 200 Mg PO BID Edxowxuzah-Boclkzjbyjhes-Yeuozqkz 50-325-40 Mg Tab 2 Tab PO Q6HR PRN Do not exceed 6 tablets/day. Amlodipine (Amlodipine Besylate) 10 Mg Tab 10 Mg PO DAILY Prograf (Tacrolimus) 1 Mg Cap 3 Mg PO Q12HR Prednisone 5 Mg Tab 5 Mg PO DAILY Omeprazole 20 Mg Tab 20 Mg PO BID Mycophenolate (Mycophenolate Mofetil) 500 Mg Tab 500 Mg PO BID Lasix (Furosemide) 20 Mg Tab 20 Mg PO DAILY PRN Coreg (Carvedilol) 12.5 Mg Tab 12.5 Mg PO BID Review of Systems General / Constitutional: No: Fever Eyes: No: Visual changes HENT: No: Headaches Cardiovascular: No: Chest Pain or Discomfort Respiratory: No: Shortness of Breath Gastrointestinal: Positive: Nausea, Vomiting, Diarrhea, Abdominal Pain Genitourinary: No: Dysuria Musculoskeletal: No: Pain Skin: No Rash Neurologic: No: Weakness Psychiatric: No: Depression Endocrine: No: Polydipsia Hematologic/Lymphatic: No: Easy Bruising Physical Exam Narrative GENERAL: Well-nourished, well-developed patient in no apparent distress. SKIN: Focused skin assessment reveals no rash and nodules. Skin is Warm and dry. HEAD: Atraumatic. Normocephalic. EYES: Pupils equal and round. No scleral icterus. No injection or drainage. ENT: No nasal bleeding or discharge. Mucous membranes pink and moist. NECK: Trachea midline. No JVD. CARDIOVASCULAR: Regular rate and rhythm. No murmur appreciated. RESPIRATORY: No accessory muscle use. Clear to auscultation. Breath sounds equal bilaterally. GASTROINTESTINAL: Abdomen soft, non-tender, nondistended. Hepatic and splenic margins not palpable. MUSCULOSKELETAL: No obvious deformities. No clubbing. No cyanosis. No edema. NEUROLOGICAL: Awake and alert. No obvious cranial nerve deficits. Motor grossly within normal limits. Normal speech. PSYCHIATRIC: Appropriate mood and affect; insight and judgment normal. Data Data Last Documented VS Vital Signs Date Time Temp Pulse Resp B/P (MAP) Pulse Ox O2 Delivery O2 Flow Rate FiO2 11/19/16 18:05 98.5 95 18 132/70 (90) 99 Orders Orders Ed Urine Pregnancytest Poc (11/19/16 18:24) Urinalysis - C+S If Indicated (11/19/16 18:24) Complete Blood Count With Diff (11/19/16 18:30) Comprehensive Metabolic Panel (11/19/16 18:30) Lipase (11/19/16 18:30) Ondansetron Inj (Zofran Inj) (11/19/16 18:30) Labs Laboratory Tests Test 11/19/16 18:30 11/19/16 18:45 Urine Color YELLOW Urine Turbidity CLEAR Urine pH 7.0 Urine Specific [place] 1.024 Urine Protein NEG mg/dL Urine Glucose (UA) NEG mg/dL Urine Ketones NEG mg/dL Urine Occult Blood TRACE Urine Nitrite NEG Urine Bilirubin NEG Urine Leukocyte Esterase NEG Urine RBC 0-3 /hpf Urine WBC 0-2 /hpf Urine Squamous Epithelial Cells 0-5 /hpf Microscopic Urinalysis Comment CULT NOT INDICATED White Blood Count 6.6 TH/MM3 Red Blood Count 4.01 MIL/MM3 Hemoglobin 11.9 GM/DL Hematocrit 36.6 % Mean Corpuscular Volume 91.4 FL Mean Corpuscular Hemoglobin 29.8 PG Mean Corpuscular Hemoglobin Concent 32.7 % Red Cell Distribution Width 14.6 % Platelet Count 184 TH/MM3 Mean Platelet Volume 7.8 FL Neutrophils (%) (Auto) 58.5 % Lymphocytes (%) (Auto) 31.5 % Monocytes (%) (Auto) 8.8 % Eosinophils (%) (Auto) 0.1 % Basophils (%) (Auto) 1.1 % Neutrophils # (Auto) 3.8 TH/MM3 Lymphocytes # (Auto) 2.1 TH/MM3 Monocytes # (Auto) 0.6 TH/MM3 Eosinophils # (Auto) 0.0 TH/MM3 Basophils # (Auto) 0.1 TH/MM3 CBC Comment DIFF FINAL Differential Comment Blood Urea Nitrogen 16 MG/DL Creatinine 1.10 MG/DL Random Glucose 97 MG/DL Total Protein 7.5 GM/DL Albumin 3.5 GM/DL Calcium Level 8.2 MG/DL Alkaline Phosphatase 63 U/L Aspartate Amino Transf (AST/SGOT) 6 U/L Alanine Aminotransferase (ALT/SGPT) 12 U/L Total Bilirubin 0.2 MG/DL Sodium Level 136 MEQ/L Potassium Level 3.7 MEQ/L Chloride Level 107 MEQ/L Carbon Dioxide Level 22.5 MEQ/L Anion Gap 7 MEQ/L Estimat Glomerular Filtration Rate 71 ML/MIN Lipase 56 U/L [facility] Medical Decision Making Medical Screen Exam Complete: Yes Emergency Medical Condition: Yes Medical Record Reviewed: Yes Differential Diagnosis Gastritis, colitis, food poisoning, dehydration, renal failure Narrative Course I have reviewed the patient's electronic medical record. She's been here several times this year for abdominal pain. CT scan June 2016 was negative IV placed CBC is normal metabolic profile is normal LFT's are normal lipase is normal I gave her IV Zofran Patient complained of pain. I offered her several different pain medication but she refuses. I offered her nausea medication on prescription and she refused. Should follow-up with primary care. Diagnosis Primary Impression: Nausea vomiting and diarrhea Additional Impressions: Nonspecific abdominal pain Renal transplant disorder Additional Instructions: The patient was advised to follow up with their physician and return if they worsen. Med/Other Pt SpecificInfo: Other Disposition: 01 DISCHARGE HOME Condition: Stable Gabriel Meier MD Nov 19, 2016 18:34
[2016-11-19 18:39] LABS: GLUCOSE,URINE NEG (NEG); KETONE, URINE NEG (NEG); NITRITE,URINE NEG (NEG)
[2016-11-19 18:49] LABS: BLOOD, URINE TRACE (NEG)
[2016-11-19 18:54] LABS: AUTOMATED NEUTROPHIL # 3.8 TH/MM3 (1.8-7.7); BASOPHIL # 0.1 TH/MM3 (0-0.2); BASOPHIL % 1.1 % (0.0-2.0); EOSINOPHIL % 0.1 % (0.0-4.0); HEMATOCRIT 36.6 % (35.0-46.0); HEMO FLAGS DIFF FINAL; LYMPH % 31.5 % (9.0-44.0); LYMPHOCYTE # 2.1 TH/MM3 (1.0-4.8); MEAN CELL VOLUME 91.4 FL (80.0-100.0); MEAN CORPUSCULAR HEMOGLOBIN 29.8 PG (27.0-34.0); MEAN CORPUSCULAR HGB CONC 32.7 % (32.0-36.0); MONO % 8.8 % (0.0-8.0); NEUT % 58.5 % (16.0-70.0); PLATELET COUNT 184 TH/MM3 (150-450); RED BLOOD COUNT 4.01 MIL/MM3 (4.00-5.30); RED CELL DISTRIBUTION WIDTH 14.6 % (11.6-17.2); WHITE BLOOD COUNT 6.6 TH/MM3 (4.0-11.0)
[2016-11-19 18:54] LABS: URINE COLOR YELLOW (YELLW/STRAW)
[2016-11-19 18:56] LABS: COMMENT (UR) CULT NOT INDICATED; CULTURE IF INDICATED CULT NOT INDICATED; RBC, URINE 0-3 /hpf (0-3); SQUAMOUS EPITHELIAL CELL URINE 0-5 /hpf (0-5); WBC, URINE 0-2 /hpf (0-5)
[2016-11-19 19:04] LABS: CHLORIDE 107 MEQ/L (98-107); POTASSIUM 3.7 MEQ/L (3.5-5.1); SODIUM (NA) 136 MEQ/L (136-145)
[2016-11-19 19:08] LABS: ANION GAP 7 MEQ/L (5-15); BICARBONATE 22.5 MEQ/L (21.0-32.0); BLOOD UREA NITROGEN 16 MG/DL (7-18)
[2016-11-19 19:10] LABS: ALT (GPT) 12 U/L (10-53); AST (GOT) 6 U/L (15-37); GLOMERULAR FILTRATION RATE 71 ML/MIN (>89)
[2016-11-19 19:12] LABS: TOTAL BILIRUBIN ADULT 0.2 MG/DL (0.2-1.0)
[2016-11-19 19:14] LABS: ALKALINE PHOSPHATASE 63 U/L (45-117)
[2016-11-19 19:51] VITALS: BP 128/85
== END 2016-11-19 19:57 | disposition home or self-care (01) ==
LOC: PHED 17:58
DX: R19.8 Other specified symptoms and signs involving the digestive system and abdomen (principal); R19.7 Diarrhea, unspecified; R10.9 Unspecified abdominal pain; Z94.0 Kidney transplant status; F17.210 Nicotine dependence, cigarettes, uncomplicated; I10 Essential (primary) hypertension; M32.9 Systemic lupus erythematosus, unspecified; Z88.0 Allergy status to penicillin
CPT/HCPCS: 80053; 81001; 83690; 84703; 85025; 96374; 99284; J1642; J2405

== ENCOUNTER 2017-10-06 17:12 | Observation (INO) ==
--- NOTE | 2017-10-06 17:28 | ED ---
HPI General Chief Complaint: Altered Mental Status Stated Complaint: AMS Time Seen by Provider: 10/06/17 17:16 History of Present Illness HPI narrative: The patient was seen and examined in the presence of the nurse. This patient presents emergently by paramedics from the [facility] where she has been employed for about 1 week. She is here for altered mental status. She cannot provide any history or review of systems. No seizure activity was witnessed. Patient does not answer questions or follow commands. No witnessed injury. Review of history reveals that she has history of lupus and seizure disorder and end-stage renal disease having had a kidney transplant in 2009. Related Data Home Medications Medication Instructions Recorded Confirmed amlodipine 10 mg PO DAILY 10/06/17 10/06/17 cyclobenzaprine 5 mg PO TID 10/06/17 10/06/17 diphenoxylate-atropine 2 tab PO Q6-8H PRN 10/06/17 10/06/17 furosemide 40 mg PO BID 10/06/17 10/06/17 levetiracetam 250 mg PO Q12H 10/06/17 10/06/17 mycophenolate mofetil 500 mg PO BID 10/06/17 10/06/17 ondansetron 4 mg PO BID PRN 10/06/17 10/06/17 potassium 10 meq PO BID 10/06/17 10/06/17 prednisone 5 mg PO BID 10/06/17 10/06/17 promethazine 25 mg PO Q6H PRN 10/06/17 10/06/17 Allergies Allergy/AdvReac Type Severity Reaction Status Date / Time hydromorphone Allergy Severe SEIZURE Verified 10/06/17 17:16 ibuprofen Allergy Severe KIDNEY Verified 10/06/17 17:16 TRANSPLANT levofloxacin Allergy Severe HIVES Verified 10/06/17 17:16 oxycodone Allergy Severe HALLUCINATI Verified 10/06/17 17:16 ONS penicillin G Allergy Severe HIVES Verified 10/06/17 17:16 Review of Systems ROS Unobtainable ROS Unobtainable: unobtainable due to mental status Exam Narrative Exam Narrative: GENERAL: Well-nourished, well-developed patient with altered mental status not responding to questions . SKIN: Focused skin assessment reveals no rash and nodules. Skin is Warm and dry. HEAD: Atraumatic. Normocephalic. EYES: Pupils equal and round. No scleral icterus. No injection or drainage. ENT: No nasal bleeding or discharge. Mucous membranes pink and moist. NECK: Trachea midline. No JVD. CARDIOVASCULAR: Regular rate and rhythm. No murmur appreciated. RESPIRATORY: No accessory muscle use. Clear to auscultation. Breath sounds equal bilaterally. GASTROINTESTINAL: Abdomen soft, non-tender, nondistended. Hepatic and splenic margins not palpable. MUSCULOSKELETAL: No obvious deformities. No clubbing. No cyanosis. No edema. She has a right upper chest port NEUROLOGICAL: Patient looks around but does not interact. She has a normal gag reflex and is controlling her airway. She does not follow commands. She is nonverbal. Tubal function is normal. Impossible to test motor strength or sensation given her lack of participation . I do not see any tremor or seizure activity. She is either staring straight ahead or looking to the right. PSYCHIATRIC: Impossible to test mood or affect or insight or judgment with her current mental status . Course Initial Documented Vital Signs Temperature 98.1 F 10/06/17 17:19 Pulse Rate 88 10/06/17 17:19 Respiratory Rate 14 10/06/17 17:19 Blood Pressure 157/95 H 10/06/17 17:19 Pulse Oximetry 99 10/06/17 17:19 Last Documented Vital Signs Temperature 98.5 F 10/07/17 00:00 Pulse Rate 117 H 10/07/17 00:00 Respiratory Rate 20 10/07/17 00:00 Blood Pressure 142/90 H 10/07/17 00:00 Pulse Oximetry 100 10/07/17 00:00 Critical Care Time Critical Care Time: Yes Total Critical Care Time: 80 Attestation: Aggregate critical care time was 80 minutes. Time to perform other separately billable procedures was not included in the critical care time. My time did not include minutes spent treating any other patients simultaneously or on activities that did not directly contribute to the patient's treatment. The services I provided to this patient were to treat and/or prevent clinically significant deterioration that could result in: Loss of airway, cardiopulmonary arrest, hypoxemic brain injury I provided critical care services requiring my management, as noted below: Chart data review, documentation time, medication orders and management, vital sign assessments/reviewing monitor data, ordering and reviewing lab tests, ordering and interpreting/reviewing x-rays and diagnostic studies, care of the patient and discussion of the patient with the admitting physicians. Sign Out Sign Out Data: Patient Sign Out occurred on 10/06/17 at 19:07. Patient's care was discussed, and care was transferred from Gabriel Meier MD to Cassia Marcial DO. Sign Out Comment: Workup is ordered and pending. Case will be checked out to the night physician to assist with disposition after workup complete. She has been gradually and slowly and steadily becoming more alert and waking up. Last updated by Gabriel Meier MD at 10/06/17 18:49 Post-Handoff Eval: Received sign out to follow up CT brain an rest of labs. Upon sign out at 7pm, informed by nurse that pt started seizing, tonic clonic movement of head to the right. Pt was given 2mg IV ativan and seizure stopped. Pt's empolyer at the [facility] is at bedside and said she was acting strange and never really at baseline while she is in the ED. She said she was complaining of a headache at 3pm today and pt's sister that she has history of migraine headaches and gets headache frequently. However, at about 4pm, pt was sitting at the front elevator operator and not acting like herself so they called [facility] and pt has been looking around and previous provider thought she seemed post ictal. Unknown if she had a seizure prior to ED arrival. However, pt was never back to baseline mental status prior to her witnessed seizure in the ED. Labs reviewed, no leukocytosis. H/H normal. Mild hypokalemia, replaced with 20mEq KCl IV. Creatinine normal at 0.95. BUN elevated at 22. Magnesium normal. Utox positive for opiates. Alcohol negative. Valporic acid therapeutic at 5p. CT brain showed no acute findings. I was able to speak with pt's sister Jenna Gupta [phone] and she lives with patient and said pt has been compliant with her seizure medication but does not know what they are. Said she gets bad migraine headache and sometimes have seizure after her headache. Said her seizures are not generalized tonic clonic and has prolong postictal state. This is likely status epilepticus since pt was never back to baseline until seizure witnessed in the ED. Pt loaded with fosphenytoin and given NS IVF. Discussed with Dr. Gould and accepted to her service. Medical Decision Making MDM Narrative Medical decision making narrative: Patient arrives emergently with altered mental status. It is unclear what is going on at first check. She may be in postictal state. I do not see any status epilepticus going on. I have ordered an extensive workup to include blood and urine studies and brain CT. She is controlling her airway at this time. Will closely with follow her with seizure precautions and I will recheck her frequently for any loss of airway control. Medical Screen Exam Complete: Yes Emergency Medical Condition: Yes Differential Diagnosis Differential Diagnosis: Postictal state, status epilepticus, intracranial hemorrhage Medical Records Medical records reviewed: Yes I reviewed the patient's medical records. I reviewed nephrology evaluation from April 2017 and admission history and physical from 2016, also reviewed neurology consultation from 2016 Lab Data Result diagrams: 10/06/17 17:35 10/06/17 17:35 Lab Results 10/06/17 10/06/17 10/06/17 Range/Units 17:35 17:35 18:10 CBC w Diff Auto diff final WBC 9.5 (4.0-11.0) th/mm3 RBC 4.73 (4.00-5.30) mil/mm3 Hgb 14.6 (11.6-15.3) gm/dL Hct 43.0 (35.0-46.0) % MCV 90.9 (80.0-100.0) fL MCH 30.9 (27.0-34.0) pg MCHC 34.0 (32.0-36.0) % RDW 15.0 (11.6-17.2) % Plt Count 253 (150-450) th/mm3 MPV 7.9 (7.0-11.0) fL Neut % (Auto) 76.1 H (16.0-70.0) % Lymph % (Auto) 15.3 (9.0-44.0) % [place] % (Auto) 7.9 (0.0-8.0) % Eos % (Auto) 0.3 (0.0-4.0) % Baso % (Auto) 0.4 (0.0-2.0) % Neut # (Auto) 7.4 (1.8-7.7) th/mm3 Lymph # (Auto) 1.4 (1.0-4.8) th/mm3 [place] # (Auto) 0.7 (0.0-0.9) th/mm3 Eos # (Auto) 0.0 (0.0-0.4) th/mm3 Baso # (Auto) 0.0 (0.0-0.2) th/mm3 WBC Differential . Differential Comment . Sodium 137 (136-145) meq/L Potassium 3.3 L (3.5-5.1) meq/L Chloride 100 (98-107) meq/L Carbon Dioxide 29.4 (21.0-32.0) meq/L Anion Gap 8 (5-15) meq/L BUN 22 H (7-18) mg/dL Creatinine 0.95 (0.50-1.00) mg/dL Estimated GFR 84 L (>89) mL/min Random Glucose 142 H (74-106) mg/dL Calcium 8.8 (8.5-10.1) mg/dL Magnesium 1.6 (1.5-2.5) mg/dL Total Bilirubin 0.3 (0.2-1.0) mg/dL AST 19 (15-37) U/L ALT 36 (10-53) U/L Alkaline Phosphatase 118 H (45-117) U/L Total Protein 8.9 H (6.4-8.2) g/dL Albumin 3.9 (3.4-5.0) g/dL Urine Opiates Screen Pos H (Neg) Ur Barbiturates Screen Neg (Neg) Valproic Acid 59 (50-100) mcg/mL Ur Amphetamines Screen Neg (Neg) U Benzodiazepines Scrn Neg (Neg) Urine Cocaine Screen Neg (Neg) U Cannabinoids Screen Neg (Neg) Serum Alcohol Less than 3 (0-5) mg/dL Imaging Data Radiologist's impression: Head CT 10/06/17 17:20 CONCLUSION: 1. No acute findings in the brain. . Discharge Plan Discharge Disposition Patient Disposition: 30 Still Patient Physicians Team ED Provider: Cassia Marcial Primary Care Provider: Primary Care Shira Delarosa Attending Provider: Kym Gould Other Providers: Vipul Kelley ED Status: Left Department Discharge Information Discharge Date/Time: 10/06/17 21:20
[2017-10-06 17:55] LABS: Baso % (Auto) 0.4 % (0.0-2.0); Eos % (Auto) 0.3 % (0.0-4.0); Hemoglobin 14.6 gm/dL (11.6-15.3); Lymph # (Auto) 1.4 th/mm3 (1.0-4.8); Lymph % (Auto) 15.3 % (9.0-44.0); Mean Corpuscular Hemoglobin 30.9 pg (27.0-34.0); Mean Corpuscular Volume 90.9 fL (80.0-100.0); Mean Platelet Volume 7.9 fL (7.0-11.0); Mono # (Auto) 0.7 th/mm3 (0.0-0.9); Mono % (Auto) 7.9 % (0.0-8.0); Neut # (Auto) 7.4 th/mm3 (1.8-7.7); Neut % (Auto) 76.1 % (16.0-70.0); Platelet Count 253 th/mm3 (150-450); Red Blood Count 4.73 mil/mm3 (4.00-5.30); White Blood Count 9.5 th/mm3 (4.0-11.0)
[2017-10-06 18:03] LABS: Chloride 100 meq/L (98-107); Potassium 3.3 meq/L (3.5-5.1); Sodium 137 meq/L (136-145)
[2017-10-06 18:07] LABS: Albumin 3.9 g/dL (3.4-5.0); Anion Gap 8 meq/L (5-15); Blood Urea Nitrogen 22 mg/dL (7-18); Calcium 8.8 mg/dL (8.5-10.1); Carbon Dioxide 29.4 meq/L (21.0-32.0); Glucose,Random 142 mg/dL (74-106)
[2017-10-06 18:10] LABS: Alanine Aminotransferase 36 U/L (10-53); Aspartate Aminotransferase 19 U/L (15-37); Glomerular Filtration Rate 84 mL/min (>89)
[2017-10-06 18:12] LABS: Total Protein 8.9 g/dL (6.4-8.2)
[2017-10-06 18:13] LABS: Alkaline Phosphatase 118 U/L (45-117)
[2017-10-06 18:27] LABS: Amphetamine Screen,Urine Neg (Neg); Barbiturate Screen,Urine Neg (Neg); Cannabinoid Screen,Urine Neg (Neg); Cocaine Screen,Urine Neg (Neg)
[2017-10-06 18:35] LABS: Opiate Screen,Urine Pos (Neg)
--- NOTE | 2017-10-06 18:58 | CT ---
EXAM DATE: 10/06/2017 6:54 PM EDT AGE/SEX: 31 years / Female INDICATIONS: Altered mental status. CLINICAL DATA: This is the patient's initial encounter. Patient reports that signs and symptoms have been present for 1 day and indicates a pain score of Nonresponsive. MEDICAL/SURGICAL HISTORY: Non-responsive. Non-responsive. RADIATION DOSE: 34.96 CTDI (mGy) COMPARISON: [facility], CT BRAIN W/O CONTRAST, 08/28/2016. [facility] [place]IN [place], 05/20/2016. . TECHNIQUE: CT of the head without contrast. Using automated exposure control and adjustment of the mA and/or kV according to patient size, radiation dose was kept as low as reasonably achievable to ob tain optimal diagnostic quality images. DICOM format image data is available electronically for revi ew and comparison. FINDINGS: Cerebrum: The ventricles are normal for age. No evidence of midline shift, mass lesion, hemorrhage or acute infarction. No extraaxial fluid collections are seen. Posterior Fossa: The cerebellum and brainstem are intact. The 4th ventricle is midline. The cerebe llopontine angle is unremarkable. Extracranial: The visualized portion of the orbits is intact. Stable mucous retention cyst in the le ft maxillary sinus. Skull: The calvaria is intact. No evidence of skull fracture. CONCLUSION: 1. No acute findings in the brain. . Electronically signed by: Thanh Singer MD 10/06/2017 6:57 PM EDT
[2017-10-06] MEDS ORDERED: Fosphenytoin Inj 1,000 MGPE in Sodium Chlor 0.9% Inj 50 ML IV.SIG ONE (19:07)
[2017-10-06] MEDS ORDERED: Sod Chloride 0.9% Inj 1,000 ML IV.SIG ONE (19:10)
[2017-10-06] MEDS ORDERED: Potassium Chlor 20 mEq Premix 20 MEQ/100 ML PIGGYBACK IV.SIG ONE (19:11)
[2017-10-06 19:35] LABS: Valproic Acid 59 mcg/mL (50-100)
[2017-10-06] MEDS ORDERED: Acetaminophen 325 MG Tablet PO PRN (19:50)
[2017-10-06] MEDS: Sod Chloride 0.9% Inj 1,000 ML IV.CONT SCH (20:46)
[2017-10-06] MEDS ORDERED: Bisacodyl 10 MG Supp RECTAL PRN (22:32)
[2017-10-06 22:47] LABS: Magnesium 1.6 mg/dL (1.5-2.5)
[2017-10-07] MEDS: Potassium Chlor 10 mEq Premix 10 MEQ/100 ML PIGGYBACK IV.SIG SCH ×2 (00:20→01:32)
[2017-10-07] MEDS: levETIRAcetam 250 MG Tablet PO SCH ×3 (01:35→21:47)
[2017-10-07 06:21] LABS: Baso % (Auto) 0.5 % (0.0-2.0); Eos # (Auto) 0.1 th/mm3 (0.0-0.4); Eos % (Auto) 0.6 % (0.0-4.0); Hematocrit 40.5 % (35.0-46.0); Hemoglobin 13.3 gm/dL (11.6-15.3); Lymph # (Auto) 1.9 th/mm3 (1.0-4.8); Lymph % (Auto) 21.6 % (9.0-44.0); Mean Corpuscular HGB Conc 32.9 % (32.0-36.0); Mean Corpuscular Hemoglobin 30.4 pg (27.0-34.0); Mean Corpuscular Volume 92.6 fL (80.0-100.0); Mono % (Auto) 11.4 % (0.0-8.0); Neut % (Auto) 65.9 % (16.0-70.0); Platelet Count 229 th/mm3 (150-450); Red Blood Count 4.38 mil/mm3 (4.00-5.30); Red Cell Distribution Width 14.6 % (11.6-17.2)
[2017-10-07 06:50] LABS: Chloride 105 meq/L (98-107); Sodium 140 meq/L (136-145)
[2017-10-07 07:15] LABS: Anion Gap 8 meq/L (5-15); Blood Urea Nitrogen 15 mg/dL (7-18); Carbon Dioxide 26.8 meq/L (21.0-32.0); Glomerular Filtration Rate Greater Than 89 mL/min (>89); Glucose,Random 80 mg/dL (74-106)
[2017-10-07] MEDS ORDERED: Potassium Chlor 20 mEq Premix 20 MEQ/100 ML PIGGYBACK IV.SIG ONE (07:30)
[2017-10-07] MEDS ORDERED: predniSONE 5 MG Tablet PO SCH (09:00)
[2017-10-07] MEDS ORDERED: POTASSIUM 10 MEQ PO SCH (09:00)
[2017-10-07] MEDS ORDERED: Furosemide 40 MG Tablet PO SCH (09:00)
--- NOTE | 2017-10-07 12:01 | P.HP ---
History of Present Illness Primary Care Physician: No Primary Care Physician Chief Complaint: AMS History of Present Illness: This is a 31-year-old female with a history of hypertension, seizure disorder, lupus, end-stage renal disease status post kidney transplant in 2009. Family history hypertension. 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 Currently she was doing well started working at the [employer] [facility] when she complained of headache yesterday afternoon and later noted to be altered acting strange. In the emergency department, she developed tonic- clonic seizure resolved with 2 mg IV Ativan. She also received fosphenytoin loading. According to her sister, she has daily migraine headaches on Topamax and hydrocodone. E force queried. She also swears that her sister is compliant with her medications. Not on new medications. No fever, chills, vomiting, left-sided weakness, diarrhea, UTI symptoms and rash. At this time, she is arousable intermittently answering questions and following commands. She keeps saying she has headache. She points to her left neck stating she has pain as well as left upper dental tenderness. All other systems reviewed negative Review of Systems All other systems reviewed negative except as stated in HPI PMFSH - History History Provided By: Patient - Tobacco History Second Hand Smoke Exposure: No Tobacco Use In Past 30 Days: No Smoking Status: Never smoker - Alcohol History How Often Do You Have a Drink Containing Alcohol: Monthly or less - Substance Use History Substance History: No History of Abuse - Travel History Recent Travel in the [place] Within the Last 8 Weeks: No Recent Travel Out of the Country Within the Last 8 Weeks: No - Immunization History Tetanus Immunization: Unable to Assess Hx Influenza Vaccine This Season: Unable to Assess Medications and Allergies Active Medications: Active Medications Acetaminophen (Tylenol) 650 mg PO Q4H PRN PRN Reason: PAIN SCALE 1 TO 10 Al Hydroxide/Mg Hydroxide (Milk Of Magnesia Liq) 30 ml PO Q12H PRN PRN Reason: Mild Constipation Amlodipine Besylate (Norvasc) 10 mg PO DAILY [facility] Bisacodyl (Dulcolax Supp) 10 mg RECTAL DAILY PRN PRN Reason: SEVERE CONSITIPATION Furosemide (Lasix) 40 mg PO BID [facility] Sodium Chloride (Ns Inj) 1,000 mls @ 100 mls/hr IV.CONT .Q10H [facility] Last Admin: 10/06/17 20:46 Dose: 75 mls/hr Lactulose (Lactulose Liq) 30 ml PO DAILY PRN PRN Reason: SEVERE CONSITIPATION Levetiracetam (Keppra) 500 mg PO Q12HR [facility] Last Admin: 10/07/17 01:35 Dose: Not Given Lorazepam (Ativan Inj) 2 mg IV.PUSH Q10M PRN PRN Reason: SEE LABEL COMMENTS Mycophenolate Mofetil (Cellcept) 500 mg PO BID [facility] Last Admin: 10/07/17 01:35 Dose: Not Given Ondansetron HCl (Zofran Inj) 4 mg IV.PUSH Q6H PRN PRN Reason: NAUSEA OR VOMITING Potassium Bicarbonate (Effer-K) 25 meq PO BID [facility] Prednisone (Deltasone) 5 mg PO BID [facility] Senna/Docusate Sodium (Ann-Colace) 1 tab PO BID [facility] Sennosides (Senokot) 17.2 mg PO Q12H PRN PRN Reason: Moderate Constipation Allergies Allergy/AdvReac Type Severity Reaction Status Date / Time hydromorphone Allergy Severe SEIZURE Verified 10/06/17 17:16 ibuprofen Allergy Severe KIDNEY Verified 10/06/17 17:16 TRANSPLANT levofloxacin Allergy Severe HIVES Verified 10/06/17 17:16 oxycodone Allergy Severe HALLUCINATI Verified 10/06/17 17:16 ONS penicillin G Allergy Severe HIVES Verified 10/06/17 17:16 Home Medications Medication Instructions Recorded Confirmed Type amlodipine 10 mg PO DAILY 10/06/17 10/06/17 History cyclobenzaprine 5 mg PO TID 10/06/17 10/06/17 History diphenoxylate-atropine 2 tab PO Q6-8H PRN 10/06/17 10/06/17 History furosemide 40 mg PO BID 10/06/17 10/06/17 History levetiracetam 250 mg PO Q12H 10/06/17 10/06/17 History mycophenolate mofetil 500 mg PO BID 10/06/17 10/06/17 History ondansetron 4 mg PO BID PRN 10/06/17 10/06/17 History potassium 10 meq PO BID 10/06/17 10/06/17 History prednisone 5 mg PO BID 10/06/17 10/06/17 History promethazine 25 mg PO Q6H PRN 10/06/17 10/06/17 History Exam Vital signs: Vital Signs 10/06/17 17:19 10/06/17 17:24 10/06/17 19:28 Temperature 98.1 F Pulse Rate 88 117 H Respiratory Rate 14 14 15 Blood Pressure 157/95 H 153/98 H Pulse Oximetry 99 99 10/06/17 19:50 10/06/17 22:35 10/07/17 00:00 Temperature 98.5 F 98.5 F Pulse Rate 110 H 118 H 117 H Respiratory Rate 14 18 20 Blood Pressure 149/87 H 142/104 H 142/90 H Pulse Oximetry 100 100 100 10/07/17 04:00 10/07/17 08:48 Temperature 98.1 F 99.1 F Pulse Rate 107 H 108 H Respiratory Rate 20 16 Blood Pressure 132/83 133/90 Pulse Oximetry 100 100 Intake & Output 10/06/17 10/07/17 10/07/17 18:59 06:59 18:59 Intake Total 1270 / 1270 Output Total 1625 / 1625 Balance -355 / -355 Weight 100 kg 112.2 kg Intake: IV 1270 / 1270 Cerebyx Inj 1,000 MGPE In NS 70 / 70 Inj 50 ML @ 280 mls/hr IV.SIG ONCE ONE Rx#:[id number] KCl 10 mEq Premix Inj 10 meq In 200 / 200 100 ml @ 100 mls/hr IV.SIG Q1H [facility] Rx#:[id number] NS Inj 1,000 ML @ Wide Open IV. 1000 / 1000 SIG BOLUS ONE Rx#:[id number] Oral 0 / 0 Output: Urine 1625 / 1625 Narrative: GENERAL: Well-developed, obese in no distress SKIN: Warm and dry. HEAD: Atraumatic. Normocephalic. EYES: Pupils equal and round. No scleral icterus. No injection or drainage. ENT: No nasal bleeding or discharge. Mucous membranes pink and moist. Oral cavity: No evidence of gum infection NECK: Trachea midline. No JVD. CARDIOVASCULAR: Regular rate and rhythm. RESPIRATORY: No accessory muscle use. Clear to auscultation. Breath sounds equal bilaterally. GASTROINTESTINAL: Abdomen soft, non-tender, nondistended. MUSCULOSKELETAL: Extremities without clubbing, cyanosis, or edema. No obvious deformities. NEUROLOGICAL: Easily arousable. Oriented to person, place. No obvious cranial nerve deficits. Motor grossly within normal limits. Five out of 5 muscle strength in the arms and legs. Normal speech. Results - Labs CBC & Chem 7: 10/07/17 05:40 10/07/17 05:40 Labs: Laboratory Results - last 24 hr 10/06/17 10/06/17 10/06/17 17:35 17:35 18:10 CBC w Diff Auto diff final WBC 9.5 RBC 4.73 Hgb 14.6 Hct 43.0 MCV 90.9 MCH 30.9 MCHC 34.0 RDW 15.0 Plt Count 253 MPV 7.9 Neut % (Auto) 76.1 H Lymph % (Auto) 15.3 Barnes % (Auto) 7.9 Eos % (Auto) 0.3 Baso % (Auto) 0.4 Neut # (Auto) 7.4 Lymph # (Auto) 1.4 Barnes # (Auto) 0.7 Eos # (Auto) 0.0 Baso # (Auto) 0.0 WBC Differential . Differential Comment . Sodium 137 Potassium 3.3 L Chloride 100 Carbon Dioxide 29.4 Anion Gap 8 BUN 22 H Creatinine 0.95 Estimated GFR 84 L Random Glucose 142 H Calcium 8.8 Phosphorus Magnesium 1.6 Total Bilirubin 0.3 AST 19 ALT 36 Alkaline Phosphatase 118 H Total Creatine Kinase Total Protein 8.9 H Albumin 3.9 Urine Opiates Screen Pos H Ur Barbiturates Screen Neg Valproic Acid 59 Ur Amphetamines Screen Neg U Benzodiazepines Scrn Neg Urine Cocaine Screen Neg U Cannabinoids Screen Neg Serum Alcohol Less than 3 10/07/17 10/07/17 10/07/17 05:40 05:40 05:40 CBC w Diff Auto diff final WBC 9.0 RBC 4.38 Hgb 13.3 Hct 40.5 MCV 92.6 MCH 30.4 MCHC 32.9 RDW 14.6 Plt Count 229 MPV 8.0 Neut % (Auto) 65.9 Lymph % (Auto) 21.6 Barnes % (Auto) 11.4 H Eos % (Auto) 0.6 Baso % (Auto) 0.5 Neut # (Auto) 6.0 Lymph # (Auto) 1.9 Barnes # (Auto) 1.0 H Eos # (Auto) 0.1 Baso # (Auto) 0.0 WBC Differential . Differential Comment . Sodium 140 Potassium 3.0 L Chloride 105 Carbon Dioxide 26.8 Anion Gap 8 BUN 15 Creatinine 0.75 Estimated GFR Greater than 89 Random Glucose 80 Calcium 8.0 L D Phosphorus Magnesium Total Bilirubin AST ALT Alkaline Phosphatase Total Creatine Kinase 66 Total Protein Albumin Urine Opiates Screen Ur Barbiturates Screen Valproic Acid Ur Amphetamines Screen U Benzodiazepines Scrn Urine Cocaine Screen U Cannabinoids Screen Serum Alcohol 10/07/17 05:40 CBC w Diff WBC RBC Hgb Hct MCV MCH MCHC RDW Plt Count MPV Neut % (Auto) Lymph % (Auto) Barnes % (Auto) Eos % (Auto) Baso % (Auto) Neut # (Auto) Lymph # (Auto) Barnes # (Auto) Eos # (Auto) Baso # (Auto) WBC Differential Differential Comment Sodium Potassium Chloride Carbon Dioxide Anion Gap BUN Creatinine Estimated GFR Random Glucose Calcium Phosphorus 2.5 Magnesium Total Bilirubin AST ALT Alkaline Phosphatase Total Creatine Kinase Total Protein Albumin Urine Opiates Screen Ur Barbiturates Screen Valproic Acid Ur Amphetamines Screen U Benzodiazepines Scrn Urine Cocaine Screen U Cannabinoids Screen Serum Alcohol - Imaging Impressions Head CT 10/06/17 17:20 CONCLUSION: 1. No acute findings in the brain. . Caprini VTE Risk Assessment Caprini VTE Risk Assessment: No/Low Risk (score <= 1) Caprini Risk Assessment Model: Point Value = 1 Point Value = 2 Point Value = 3 Point Value = 5 Age 41-60 Minor surgery BMI > 25 kg/m2 Swollen legs Varicose veins or History of unexplained or recurrent spontaneous Oral contraceptives or hormone replacement Sepsis (< 1 month) Serious lung disease, including pneumonia (< 1 month) Abnormal pulmonary function Acute myocardial infarction Congestive heart failure (< 1 month) History of inflammatory bowel disease Medical patient at bed rest Age 61-74 Arthroscopic surgery Major open surgery (> 45 min) Laparoscopic surgery (> 45 min) Malignancy Confined to bed (> 72 hours) Immobilizing plaster cast Central venous access Age >= 75 History of VTE Family history of VTE Factor V Leiden Prothrombin [id number] Lupus anticoagulant Anticardiolipin antibodies Elevated serum homocysteine Heparin-induced thrombocytopenia Other congenital or acquired thrombophilia Stroke (< 1 month) Elective arthroplasty Hip, pelvis, or leg fracture Acute spinal cord injury (< 1 month) Prophylaxis Regimen: Total Risk Factor Score Risk Level Prophylaxis Regimen 0-1 Low Early ambulation 2 Moderate Order ONE of the following: *Sequential Compression Device (SCD) *Heparin 5000 units SQ BID 3-4 Higher Order ONE of the following medications: *Heparin 5000 units SQ TID *Enoxaparin/Lovenox 40 mg SQ daily (WT < 150 kg, CrCl > 30 mL/min) *Enoxaparin/Lovenox 30 mg SQ daily (WT < 150 kg, CrCl > 10-29 mL/min) *Enoxaparin/Lovenox 30 mg SQ BID (WT < 150 kg, CrCl > 30 mL/min) AND/OR *Sequential Compression Device (SCD) 5 or more Highest Order ONE of the following medications: *Heparin 5000 units SQ TID (Preferred with Epidurals) *Enoxaparin/Lovenox 40 mg SQ daily (WT < 150 kg, CrCl > 30 mL/min) *Enoxaparin/Lovenox 30 mg SQ daily (WT < 150 kg, CrCl > 10-29 mL/min) *Enoxaparin/Lovenox 30 mg SQ BID (WT < 150 kg, CrCl > 30 mL/min) AND *Sequential Compression Device (SCD) Assessment and Plan - Plan This is a 31-year-old female with a history of hypertension, seizure disorder, lupus, end-stage renal disease status post kidney transplant in 2009. She presents to the emergency department with altered mental status and later developed tonic-clonic seizures. Status epilepticus. Status post fosphenytoin loading. Will increase Keppra to 500 mg twice a day follow-up level, restart Depakote 500 mg twice a day follow- up level, obtain EEG and consult patient's neurologist Dr. Kelley. Seizure precautions. Migraine headaches. Head CT without acute changes. Continue Topamax and hydrocodone. Hypokalemia. Replace with 20 mg IV potassium and 25 mEq p.o. potassium twice a day and repeat BMP and magnesium in the morning Renal transplant. Resume antirejection medications and consult Dr. Nunes DVT prophylaxis with SCD. PT evaluation. Discharge Planning: Possible dc with home care in 1-2 days
[2017-10-07] MEDS ORDERED: Temazepam 15 MG Capsule PO PRN (12:43)
[2017-10-07] MEDS: Senna/Docusate Sodium 8.6/50 MG Tablet PO SCH ×2 (12:45→21:48)
[2017-10-07] MEDS: amLODIPine 10 MG Tablet PO SCH (12:45)
[2017-10-07] MEDS: Potassium Bicarbonate 25 MEQ Effervescent Tablet PO SCH ×2 (12:48→21:49)
[2017-10-07] MEDS: Sod Chloride 0.9% Inj 1,000 ML IV.CONT SCH ×2 (12:49→21:49)
--- NOTE | 2017-10-07 14:53 | ECG ---
Date Performed: 10/06/2017 Time Performed: 17:21:51 PTAGE: 31 years EKG: SINUS TACHYCARDIA POSSIBLE RIGHT ATRIAL ENLARGEMENT POSSIBLE LEFT ATRIAL ENLARGEMENT BORDER LINE LEFT AXIS DEVIATION RIGHT BUNDLE BRANCH BLOCK LEFT VENTRICULAR HYPERTROPHY AND ST-T CHANGE VOLTA GE HAS INCREASED SINCE PRIOR TRACING Clinical correlation is recommended ABNORMAL ECG PREVIOUS TRACING : 05/20/2016 20.57 DOCTOR: Abdulaziz Mckeon Interpretating Date/Time 10/07/2017 14:53:18
[2017-10-07] MEDS: Divalproex 500 MG DR Tablet PO SCH ×2 (15:22→21:48)
[2017-10-07] MEDS: Topiramate 100 MG Tablet PO SCH ×2 (17:48→21:48)
--- NOTE | 2017-10-07 20:05 | P.CONNP ---
History of Present Illness Service: Nephrology Consult date: 10/07/17 Requesting Physician: Van Krishnan Reason for Consult: Kidney transplant Primary Care Provider: No Primary Care Physician Family Provider: Marques Galvez Mai, m.d., MD Chief Complaint: AMS History of Present Illness: Patient is a 31-year-old -[place] female with history of kidney transplant at [place] in 2009, patient postoperative course was unremarkable, patient has underlying SLE, seizure disorder, migraine headaches, she was found to be confused and altered mental status slow to respond complaining of headaches and it was thought she possibly had seizures. Patient kidney functions are stable with creatinine is 0.7 she is being maintained on prednisone 5 mg daily, CellCept 500 mg twice daily and tacrolimus 4 mg twice daily. He follows with Dr. HINKLE, he asked me to see the during this admission. Review of Systems unobtainable due to mental status PMFSH - History History Provided By: Patient - Tobacco History Second Hand Smoke Exposure: No Tobacco Use In Past 30 Days: No Smoking Status: Never smoker - Alcohol History How Often Do You Have a Drink Containing Alcohol: Monthly or less - Substance Use History Substance History: No History of Abuse - Travel History Recent Travel in the [place] Within the Last 8 Weeks: No Recent Travel Out of the Country Within the Last 8 Weeks: No - Immunization History Tetanus Immunization: Unable to Assess Hx Influenza Vaccine This Season: Unable to Assess Medications and Allergies Active Medications: Active Medications Hydrocodone Bitart/Acetaminophen ([place] 10/325) 1 tab PO Q6H PRN PRN Reason: PAIN SCALE 1 TO 10 Last Admin: 10/07/17 15:22 Dose: 1 tab Al Hydroxide/Mg Hydroxide (Milk Of Antonino Fall) 30 ml PO Q12H PRN PRN Reason: Mild Constipation Amlodipine Besylate (Norvasc) 10 mg PO DAILY [facility] Last Admin: 10/07/17 12:45 Dose: 10 mg Bisacodyl (Dulcolax Supp) 10 mg RECTAL DAILY PRN PRN Reason: SEVERE CONSITIPATION Carvedilol (Coreg) 12.5 mg PO BID [facility] Divalproex Sodium (Depakote Dr) 500 mg PO BID [facility] Last Admin: 10/07/17 15:22 Dose: 500 mg Sodium Chloride (Ns Inj) 1,000 mls @ 100 mls/hr IV.CONT .Q10H [facility] Last Admin: 10/07/17 12:49 Dose: 75 mls/hr Levetiracetam 500 mg/ Sodium (Chloride) 105 mls @ 400 mls/hr IV.SIG Q12HR PRN PRN Reason: SEIZURES Lactulose (Lactulose Liq) 30 ml PO DAILY PRN PRN Reason: SEVERE CONSITIPATION Levetiracetam (Keppra) 500 mg PO Q12HR [facility] Last Admin: 10/07/17 12:45 Dose: 500 mg Lorazepam (Ativan Inj) 2 mg IV.PUSH Q10M PRN PRN Reason: SEE LABEL COMMENTS Mycophenolate Mofetil (Cellcept) 500 mg PO BID [facility] Last Admin: 10/07/17 12:48 Dose: Not Given Ondansetron HCl (Zofran Inj) 4 mg IV.PUSH Q6H PRN PRN Reason: NAUSEA OR VOMITING Potassium Bicarbonate (Effer-K) 25 meq PO BID [facility] Last Admin: 10/07/17 12:48 Dose: 25 meq Prednisone (Deltasone) 5 mg PO DAILY [facility] Senna/Docusate Sodium (Ann-Colace) 1 tab PO BID [facility] Last Admin: 10/07/17 12:45 Dose: 1 tab Sennosides (Senokot) 17.2 mg PO Q12H PRN PRN Reason: Moderate Constipation Tacrolimus (Prograf) 4 mg PO BID [facility] Temazepam (Restoril) 15 mg PO HS PRN PRN Reason: INSOMNIA/MAY REPEAT X1 DOSE Topiramate (Topamax) 100 mg PO BID [facility] Last Admin: 10/07/17 17:48 Dose: 100 mg Allergies Allergy/AdvReac Type Severity Reaction Status Date / Time hydromorphone Allergy Severe SEIZURE Verified 10/06/17 17:16 ibuprofen Allergy Severe KIDNEY Verified 10/06/17 17:16 TRANSPLANT levofloxacin Allergy Severe HIVES Verified 10/06/17 17:16 oxycodone Allergy Severe HALLUCINATI Verified 10/06/17 17:16 ONS penicillin G Allergy Severe HIVES Verified 10/06/17 17:16 Home Medications Medication Instructions Recorded Confirmed Type amlodipine 10 mg PO DAILY 10/06/17 10/06/17 History cyclobenzaprine 5 mg PO TID 10/06/17 10/06/17 History diphenoxylate-atropine 2 tab PO Q6-8H PRN 10/06/17 10/06/17 History furosemide 40 mg PO BID 10/06/17 10/06/17 History levetiracetam 250 mg PO Q12H 10/06/17 10/06/17 History mycophenolate mofetil 500 mg PO BID 10/06/17 10/06/17 History ondansetron 4 mg PO BID PRN 10/06/17 10/06/17 History potassium 10 meq PO BID 10/06/17 10/06/17 History prednisone 5 mg PO BID 10/06/17 10/06/17 History promethazine 25 mg PO Q6H PRN 10/06/17 10/06/17 History Exam Vital signs: Vital Signs 10/06/17 22:35 10/07/17 00:00 10/07/17 04:00 Temperature 98.5 F 98.5 F 98.1 F Pulse Rate 118 H 117 H 107 H Respiratory Rate 18 20 20 Blood Pressure 142/104 H 142/90 H 132/83 Pulse Oximetry 100 100 100 10/07/17 08:48 10/07/17 12:50 10/07/17 17:21 Temperature 99.1 F 98.9 F 99.6 F Pulse Rate 108 H 99 H 109 H Respiratory Rate 16 14 18 Blood Pressure 133/90 132/87 132/77 Pulse Oximetry 100 100 92 L Intake & Output 10/07/17 10/07/17 10/08/17 06:59 18:59 06:59 Intake Total 1270 / 1270 2200 / 2200 Output Total 1625 / 1625 1000 / 1000 Balance -355 / -355 1200 / 1200 Weight 112.2 kg Intake: IV 1270 / 1270 1000 / 1000 NS Inj 1,000 ML @ 100 mls/hr IV 1000 / 1000 .CONT .Q10H [facility] Rx#:[id number] Cerebyx Inj 1,000 MGPE In NS 70 / 70 Inj 50 ML @ 280 mls/hr IV.SIG ONCE ONE Rx#:[id number] KCl 10 mEq Premix Inj 10 meq In 200 / 200 100 ml @ 100 mls/hr IV.SIG Q1H [facility] Rx#:[id number] NS Inj 1,000 ML @ Wide Open IV. 1000 / 1000 SIG BOLUS ONE Rx#:[id number] Oral 0 / 0 1200 / 1200 Output: Urine 1625 / 1625 1000 / 1000 - Constitutional no acute distress - Routine HEENT Exam Head: Present: normocephalic - Routine Neck Exam Present: supple - Routine Respiratory Exam Present: CTA bilaterally - Routine Cardiovascular Exam Present: RRR - Routine Abdominal Exam Present: soft, normoactive bowel sounds - Routine Extremities Exam Present: pulses intact - Routine Skin Exam Present: intact - Routine Neurological Exam Present: alert (Patient appears confused complaining of) Results - Lab Results 10/08/17 04:53 10/08/17 04:53 Most recent lab results Calcium 8.0 mg/dL (8.5-10.1) L D 10/07/17 05:40 Phosphorus 2.5 mg/dL (2.5-4.9) 10/07/17 05:40 Magnesium 1.6 mg/dL (1.5-2.5) 10/06/17 17:35 Assessment and Plan - Assessment (1) Kidney transplant recipient Code(s): Z94.0 - Kidney transplant status Status: Acute (2) Seizure disorder Code(s): G40.909 - Epilepsy, unspecified, not intractable, without status epilepticus Status: Acute (3) Altered mental status Code(s): R41.82 - Altered mental status, unspecified Status: Acute (4) Migraine headache Code(s): G43.909 - Migraine, unspecified, not intractable, without status migrainosus Status: Acute - Plan Patient resume functions are stable however her dose for Prograf is different, she is taking 4 mg p.o. every 12 hourly according to our records I have obtained this and she will continue with prednisone 5 mg daily and CellCept 500 mg twice daily His creatinine appears to be at baseline Patient has seizure disorder and currently altered mental status believed to be related to underlying neurological issues, patient is able to answer some questions and becoming more alert now. She did complain of migraine headache. Continue with current medications.
[2017-10-07] MEDS: Carvedilol 12.5 MG Tablet PO SCH (21:48)
--- NOTE | 2017-10-07 22:18 | MG ---
cc: Barrera Tiwari MD EEG RECORD NUMBER: [id number] Posterior rhythm of 5-7 Hz at 10-20 microvolts followed by spindle activity K complex suggestive of drowsy stage I and stage II sleep. During arousals, background increments up to 6-7 Hz. Reduced driving with photic stimulation. Single-lead EKG showing sinus rhythm. INTERPRETATION: Minimal encephalopathy in sleep state. Clinical correlation. MD MARIFER Sepulveda/dana , 09:52 PM , 09:55 PM
--- NOTE | 2017-10-08 04:59 | MB ---
cc: Vipul Kelley MD, PhD DATE: 10/07/2017 REASON FOR CONSULTATION: Seizure, headache. HISTORY OF PRESENT ILLNESS: Ms. Gupta is a 31-year-old female known to me, who has a history of lupus, end-stage renal disease, kidney transplant, seizure disorder, and hypertension, as well as migraine headaches. The patient was stable from the standpoint of her seizures but on Wednesday she had a tonic-clonic seizure. That was in the ER after she presented for headache. She received fosphenytoin loading dose. She is on valproic acid with a level of 59. She is also complaining of a severe left-sided headache. CT brain showed no acute findings. CURRENT MEDICATIONS: 1. Hydrocodone p.r.n. pain. 2. Norvasc 10 mg daily. 3. Coreg 12.5 mg b.i.d. 4. Depakote 500 mg b.i.d. 5. Lactulose. 6. Keppra 500 mg b.i.d. 7. CellCept 500 mg b.i.d. 8. Prednisone 5 mg daily. 9. Ann-Colace. 10. Prograf. 11. Senokot. 12. Restoril. 13. Topamax 100 mg b.i.d. PHYSICAL EXAMINATION: VITAL SIGNS: Blood pressure is 134/97, pulse 109, respirations 19, temperature 98.1 degrees Fahrenheit. NEUROLOGIC: Higher cortical functions normal. Cranial nerves are intact. Motor exam: No focal deficits are seen. CT of the brain: No acute change present. LABORATORY DATA: Depakote level of 59. White count is 9000, hemoglobin 13.3, hematocrit 40.5%, platelet count 229,000. Sodium is 140, potassium is 3, chloride 105, CO2 of 26.8, BUN is 15, creatinine 0.75, GFR is greater than 89. IMPRESSION: Breakthrough seizure as well as probable vascular headache. RECOMMENDATION: Increase Keppra to 1000 mg b.i.d. Continue current dose of Depakote. Vipul Kelley MD, PhD KATHERYN/dana , 10:21 PM , 10:28 PM
[2017-10-08 05:28] LABS: Chloride 105 meq/L (98-107); Potassium 3.3 meq/L (3.5-5.1); Sodium 138 meq/L (136-145)
[2017-10-08 05:31] LABS: Calcium 8.3 mg/dL (8.5-10.1)
[2017-10-08 05:32] LABS: Anion Gap 8 meq/L (5-15); Blood Urea Nitrogen 10 mg/dL (7-18); Glucose,Random 78 mg/dL (74-106); Magnesium 1.4 mg/dL (1.5-2.5)
[2017-10-08 05:35] LABS: Glomerular Filtration Rate Greater Than 89 mL/min (>89); Phosphorus 1.6 mg/dL (2.5-4.9)
[2017-10-08 05:38] LABS: Baso # (Auto) 0.1 th/mm3 (0.0-0.2); Baso % (Auto) 1.4 % (0.0-2.0); Eos % (Auto) 0.4 % (0.0-4.0); Hematocrit 40.9 % (35.0-46.0); Hemoglobin 13.8 gm/dL (11.6-15.3); Lymph % (Auto) 34.3 % (9.0-44.0); Mean Corpuscular HGB Conc 33.7 % (32.0-36.0); Mean Corpuscular Hemoglobin 30.5 pg (27.0-34.0); Mean Corpuscular Volume 90.7 fL (80.0-100.0); Mean Platelet Volume 8.3 fL (7.0-11.0); Mono % (Auto) 11.9 % (0.0-8.0); Neut # (Auto) 4.6 th/mm3 (1.8-7.7); Platelet Count 231 th/mm3 (150-450); Red Blood Count 4.51 mil/mm3 (4.00-5.30); Red Cell Distribution Width 14.3 % (11.6-17.2); White Blood Count 8.7 th/mm3 (4.0-11.0)
[2017-10-08 05:39] LABS: Creatine Kinase 55 U/L (26-192)
[2017-10-08] MEDS: Sod Chloride 0.9% Inj 1,000 ML IV.CONT SCH ×2 (06:22→15:27)
[2017-10-08] MEDS: levETIRAcetam 250 MG Tablet PO SCH ×2 (08:19→22:41)
[2017-10-08] MEDS: Topiramate 100 MG Tablet PO SCH ×2 (08:19→22:33)
[2017-10-08] MEDS: Senna/Docusate Sodium 8.6/50 MG Tablet PO SCH ×2 (08:19→22:40)
[2017-10-08] MEDS: predniSONE 5 MG Tablet PO SCH (08:19)
[2017-10-08] MEDS: Divalproex 500 MG DR Tablet PO SCH ×2 (08:19→22:32)
[2017-10-08] MEDS: Carvedilol 12.5 MG Tablet PO SCH ×2 (08:20→22:33)
[2017-10-08] MEDS: Potassium Bicarbonate 25 MEQ Effervescent Tablet PO SCH ×2 (08:20→22:43)
[2017-10-08] MEDS: amLODIPine 10 MG Tablet PO SCH (08:20)
[2017-10-08] MEDS: Potassium Phos/Sodium Phos 250 MG Tablet PO SCH ×3 (09:49→17:03)
[2017-10-08] MEDS ORDERED: Potassium Phosphate Inj 15 MMOL in Sodium Chlor 0.9% Inj 150 ML IV.SIG ONE (10:00)
[2017-10-08] MEDS: Magnesium Oxide 400 MG Tablet PO SCH ×2 (10:28→16:44)
[2017-10-08] MEDS: Butalbital/APAP/Caff 50/325/40 MG Tablet PO PRN ×2 (10:28→22:52)
--- NOTE | 2017-10-08 11:04 | P.PNNP ---
Subjective Interval history: c/o headache Physical Exam Vital signs: Vital Signs 10/07/17 12:50 10/07/17 17:21 10/07/17 20:00 Temperature 98.9 F 99.6 F 99.8 F H Pulse Rate 99 H 109 H 109 H Respiratory Rate 14 18 19 Blood Pressure 132/87 132/77 134/97 H Pulse Oximetry 100 92 L 99 10/08/17 00:00 10/08/17 08:00 Temperature 98.8 F 98.4 F Pulse Rate 79 100 H Respiratory Rate 18 18 Blood Pressure 120/68 120/71 Pulse Oximetry 100 96 Intake & Output 10/07/17 10/08/17 10/08/17 18:59 06:59 18:59 Intake Total 2200 / 2200 1100 / 1100 Output Total 1000 / 1000 1350 / 1350 Balance 1200 / 1200 -250 / -250 Weight 113.6 kg Intake: IV 1000 / 1000 1100 / 1100 NS Inj 1,000 ML @ 100 mls/hr IV 1000 / 1000 1000 / 1000 .CONT .Q10H [facility] Rx#:[id number] Oral 1200 / 1200 Output: Urine 1000 / 1000 Urine Amount (Catheter) 1350 / 1350 Indwelling Urethral Catheter 1350 / 1350 - Constitutional no acute distress - Routine HEENT Exam Eye: Present: EOMI - Routine Respiratory Exam Present: CTA bilaterally - Routine Cardiovascular Exam Present: RRR - Routine Abdominal Exam Present: soft, normoactive bowel sounds - Routine Extremities Exam Present: pulses intact - Urinary Catheter Management Indwelling Urethral Catheter Cath placed during this visit: yes, but has since been removed by the nurse Reason for continuing: Decision to DC catheter Insertion date: 10/06/17 Insertion time: 18:06 Removal date: 10/08/17 Removal time: 08:00 Assessment and Plan - Assessment (1) Kidney transplant recipient Code(s): Z94.0 - Kidney transplant status Status: Acute (2) Seizure disorder Code(s): G40.909 - Epilepsy, unspecified, not intractable, without status epilepticus Status: Acute (3) Altered mental status Code(s): R41.82 - Altered mental status, unspecified Status: Acute (4) Migraine headache Code(s): G43.909 - Migraine, unspecified, not intractable, without status migrainosus Status: Acute - Plan Patient has creatinine 0.8 Tacrolimus dose was adjusted Seizure headache per medical tram dc plans once better PO4/Mg replacement follow up with Dr. Nunes upon discharge.
--- NOTE | 2017-10-08 12:48 | P.PN ---
Subjective Interval history: Follow-up seizure. No recurrence of seizure. EEG negative. Headache improved with Fioricet. Physical Exam Vital signs: Vital Signs 10/07/17 12:50 10/07/17 17:21 10/07/17 20:00 Temperature 98.9 F 99.6 F 99.8 F H Pulse Rate 99 H 109 H 109 H Respiratory Rate 14 18 19 Blood Pressure 132/87 132/77 134/97 H Pulse Oximetry 100 92 L 99 10/08/17 00:00 10/08/17 08:00 Temperature 98.8 F 98.4 F Pulse Rate 79 100 H Respiratory Rate 18 18 Blood Pressure 120/68 120/71 Pulse Oximetry 100 96 Intake & Output 10/07/17 10/08/17 10/08/17 18:59 06:59 18:59 Intake Total 2200 / 2200 1100 / 1100 1000 / 1000 Output Total 1000 / 1000 1350 / 1350 Balance 1200 / 1200 -250 / -250 1000 / 1000 Weight 113.6 kg Intake: IV 1000 / 1000 1100 / 1100 1000 / 1000 NS Inj 1,000 ML @ 100 mls/hr IV 1000 / 1000 1000 / 1000 1000 / 1000 .CONT .Q10H GERA Rx#:[id number] Oral 1200 / 1200 Output: Urine 1000 / 1000 Urine Amount (Catheter) 1350 / 1350 Indwelling Urethral Catheter 1350 / 1350 Narrative: GENERAL: Well-developed, obese in no distress SKIN: Warm and dry. CARDIOVASCULAR: Regular rate and rhythm. RESPIRATORY: No accessory muscle use. Clear to auscultation. Breath sounds equal bilaterally. GASTROINTESTINAL: Abdomen soft, non-tender, nondistended. MUSCULOSKELETAL: Extremities without clubbing, cyanosis, or edema. No obvious deformities. NEUROLOGICAL: Awake and alert no obvious cranial nerve deficits. Motor grossly within normal limits. Five out of 5 muscle strength in the arms and legs. Normal speech. - Urinary Catheter Management Indwelling Urethral Catheter Cath placed during this visit: yes, but has since been removed by the nurse Reason for continuing: Decision to DC catheter Insertion date: 10/06/17 Insertion time: 18:06 Removal date: 10/08/17 Removal time: 08:00 Results - Labs CBC & Chem 7: 10/08/17 04:53 10/08/17 04:53 Laboratory Results - last 24 hr 10/07/17 10/07/17 10/07/17 05:40 05:40 05:40 CBC w Diff WBC RBC Hgb Hct MCV MCH MCHC RDW Plt Count MPV Neut % (Auto) Lymph % (Auto) [place] % (Auto) Eos % (Auto) Baso % (Auto) Neut # (Auto) Lymph # (Auto) [place] # (Auto) Eos # (Auto) Baso # (Auto) WBC Differential Differential Comment Sodium Potassium Chloride Carbon Dioxide Anion Gap BUN Creatinine Estimated GFR Random Glucose Calcium Phosphorus Magnesium Total Creatine Kinase Beta HCG, Qual Less than 1.00 Valproic Acid 32 L Tacrolimus 4.4 L 10/08/17 10/08/17 04:53 04:53 CBC w Diff Auto diff final WBC 8.7 RBC 4.51 Hgb 13.8 Hct 40.9 MCV 90.7 MCH 30.5 MCHC 33.7 RDW 14.3 Plt Count 231 MPV 8.3 Neut % (Auto) 52.0 Lymph % (Auto) 34.3 [place] % (Auto) 11.9 H Eos % (Auto) 0.4 Baso % (Auto) 1.4 Neut # (Auto) 4.6 Lymph # (Auto) 3.0 [place] # (Auto) 1.0 H Eos # (Auto) 0.0 Baso # (Auto) 0.1 WBC Differential . Differential Comment . Sodium 138 Potassium 3.3 L Chloride 105 Carbon Dioxide 25.0 Anion Gap 8 BUN 10 Creatinine 0.83 Estimated GFR Greater than 89 Random Glucose 78 Calcium 8.3 L Phosphorus 1.6 L Magnesium 1.4 L Total Creatine Kinase 55 Beta HCG, Qual Valproic Acid Tacrolimus - Imaging ITS Impressions Head CT 10/06/17 17:20 CONCLUSION: 1. No acute findings in the brain. . - Procedures none Assessment and Plan - Plan This is a 31-year-old female with a history of hypertension, seizure disorder, lupus, end-stage renal disease status post kidney transplant in 2009. She presents to the emergency department with altered mental status and later developed tonic-clonic seizures. Status epilepticus. Status post fosphenytoin loading. Resolved she is now awake and alert with improved headache. Keppra has been increased to 1000 g twice a day. Continue same dose Depakote. EEG negative for seizure. Patient aware not to drive for 6 months, climb heights, swim alone and carry young children. Seizure precautions. Migraine headaches. Head CT without acute changes. Continue Topamax and hydrocodone. Added Fioricet which helped Hypokalemia, hypomagnesemia and hypophosphatemia. We will replace prior to discharge. Renal transplant. Resume antirejection medications nephrology following DVT prophylaxis with SCD. PT evaluation. Discharge Planning: Discharge patient to home Condition on discharge: Improved Regular Diet as tolerated Ad [place] activity no driving Rx written: Neha Cason and magnesium Follow-up with primary care physician, nephrology and neurology
[2017-10-08] MEDS ORDERED: MAGNESIUM SULFATE IV.SIG ONE (13:00)
[2017-10-08] MEDS ORDERED: SODIUM CHLOR 0.9% IV.SIG ONE (13:00)
[2017-10-09] MEDS: Sod Chloride 0.9% Inj 1,000 ML IV.CONT SCH ×2 (04:13→14:09)
[2017-10-09 07:38] LABS: Chloride 108 meq/L (98-107); Sodium 141 meq/L (136-145)
[2017-10-09 07:40] LABS: Calcium 7.9 mg/dL (8.5-10.1)
[2017-10-09 07:41] LABS: Anion Gap 8 meq/L (5-15); Blood Urea Nitrogen 10 mg/dL (7-18); Glucose,Random 83 mg/dL (74-106); Magnesium 1.5 mg/dL (1.5-2.5)
[2017-10-09 07:44] LABS: Glomerular Filtration Rate Greater Than 89 mL/min (>89)
[2017-10-09 07:45] LABS: Phosphorus 2.4 mg/dL (2.5-4.9)
[2017-10-09 07:54] LABS: Creatine Kinase 65 U/L (26-192)
[2017-10-09] MEDS: levETIRAcetam 250 MG Tablet PO SCH (08:54)
[2017-10-09] MEDS: Carvedilol 12.5 MG Tablet PO SCH (08:54)
[2017-10-09] MEDS: Potassium Phos/Sodium Phos 250 MG Tablet PO SCH ×2 (08:54→14:10)
[2017-10-09] MEDS: amLODIPine 10 MG Tablet PO SCH (08:54)
[2017-10-09] MEDS: Topiramate 100 MG Tablet PO SCH (08:54)
[2017-10-09] MEDS: Senna/Docusate Sodium 8.6/50 MG Tablet PO SCH (08:55)
[2017-10-09] MEDS: predniSONE 5 MG Tablet PO SCH (08:55)
[2017-10-09] MEDS: Divalproex 500 MG DR Tablet PO SCH (08:55)
[2017-10-09] MEDS: Potassium Bicarbonate 25 MEQ Effervescent Tablet PO SCH (08:56)
[2017-10-09] MEDS ORDERED: Potassium Bicarbonate 25 MEQ Effervescent Tablet PO SCH (10:00)
--- NOTE | 2017-10-09 10:34 | P.DCO ---
- Physical Therapy Order: Evaluate and treat, Improve ambulation, Strength and gait training - Home Health Nursing Order: Medical education, Medication education-adverse effect, Nursing assessment with vital signs - Certification I have seen patient Sarah Gupta on 10/09/17. My clinical findings support the need for the requested home health care services because: Medication compliance is questionable I certify that my clinical findings support that this patient is homebound because: Need for psychosocial assistance
--- NOTE | 2017-10-09 11:46 | P.DS ---
Date of admission: 10/06/17 19:51 Primary care physician: No Primary Care Physician Brief History from admission: This is a 31-year-old female with a history of hypertension, seizure disorder, lupus, end-stage renal disease status post kidney transplant in 2009. Family history hypertension. 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 Currently she was doing well started working at the [employer] when she complained of headache yesterday afternoon and later noted to be altered acting strange. In the emergency department, she developed tonic- clonic seizure resolved with 2 mg IV Ativan. She also received fosphenytoin loading. According to her sister, she has daily migraine headaches on Topamax and hydrocodone. E force queried. She also swears that her sister is compliant with her medications. Not on new medications. No fever, chills, vomiting, left-sided weakness, diarrhea, UTI symptoms and rash. At this time, she is arousable intermittently answering questions and following commands. She keeps saying she has headache. She points to her left neck stating she has pain as well as left upper dental tenderness. All other systems reviewed negative DS: Diagnosis - Discharge Diagnosis (1) Seizure disorder Status: Acute DS: Medications - Discharge Medications Prescriptions: [id number] 1 tab PO Q8H PRN #10 tab PRN Reason: Acute Pain levetiracetam [Keppra] 1,000 mg PO Q12HR #240 tab magnesium oxide 400 mg PO BID@1100,1700 #7 tab sod phos di, mono-K phos mono [R-Mehr-Skjsoag] 250 mg PO BID #7 tab tacrolimus [Prograf] 4 mg PO BID #240 cap DS: Summary Hospital Course: This is a 31-year-old female with a history of hypertension, seizure disorder, lupus, end-stage renal disease status post kidney transplant in 2009. She presents to the emergency department with altered mental status and later developed tonic-clonic seizures. Status epilepticus. Status post fosphenytoin loading. Resolved she is now awake and alert with improved headache. Keppra has been increased to 1000 g twice a day. Continue same dose Depakote. EEG negative for seizure. Patient aware not to drive for 6 months, climb heights, swim alone and carry young children. Seizure precautions. Migraine headaches. Head CT without acute changes. Continue Topamax and hydrocodone. Added Fioricet which helped Hypokalemia, hypomagnesemia and hypophosphatemia. We will replace prior to discharge. Renal transplant. Resume antirejection medications nephrology following DVT prophylaxis with SCD. PT evaluation. - Time Spent with Patient Total time spent providing and/or coordinating discharge services: Greater than 30 minutes Exam Vital signs: Vital Signs 10/08/17 12:00 10/08/17 15:36 10/08/17 20:00 Temperature 98 F 98.1 F 98.4 F Pulse Rate 97 H 93 H 92 H Respiratory Rate 18 18 20 Blood Pressure 123/58 L 110/59 L 131/78 Pulse Oximetry 96 96 99 10/09/17 00:00 10/09/17 03:05 10/09/17 08:00 Temperature 98.6 F 97.3 F L Pulse Rate 107 H 82 Respiratory Rate 20 18 20 Blood Pressure 116/61 118/77 Pulse Oximetry 99 98 10/09/17 09:23 10/09/17 10:58 Temperature Pulse Rate Respiratory Rate 20 20 Blood Pressure Pulse Oximetry Intake & Output 10/08/17 10/09/17 10/09/17 18:59 06:59 18:59 Intake Total 1832 / 1832 1480 / 1480 Output Total 600 / 600 Balance 1232 / 1232 1480 / 1480 Weight 113 kg Intake: IV 1207 / 1207 1000 / 1000 NS Inj 1,000 ML @ 100 mls/hr IV 1000 / 1000 1000 / 1000 .CONT .Q10H GERA Rx#:[id number] Magnesium Sulfate Inj 1 GM In 52 / 52 NS Inj 50 ML @ 100 mls/hr IV. SIG ONCE ONE Rx#:[id number] Potassium Phosphate Inj 15 MMOL 155 / 155 In NS Inj 150 ML @ 38.75 mls/ hr IV.SIG ONCE ONE Rx#: [id number] Oral 625 / 625 480 / 480 Output: Urine 600 / 600 Other: Post Void Residual 0 # Voids 2 3 Date of Last Bowel Movement 10/08/17 10/08/17 # Bowel Movements 2 Narrative: GENERAL: Well-developed, obese in no distress SKIN: Warm and dry. CARDIOVASCULAR: Regular rate and rhythm. RESPIRATORY: No accessory muscle use. Clear to auscultation. Breath sounds equal bilaterally. GASTROINTESTINAL: Abdomen soft, non-tender, nondistended. MUSCULOSKELETAL: Extremities without clubbing, cyanosis, or edema. No obvious deformities. NEUROLOGICAL: Awake and alert no obvious cranial nerve deficits. Motor grossly within normal limits. Five out of 5 muscle strength in the arms and legs. Normal speech. Results Procedures completed during hospitalization: none Labs on day of discharge: Labs from last 24 hours 10/09/17 10/08/17 10/06/17 07:00 04:53 22:59 Sodium 141 Potassium 3.0 L Chloride 108 H Carbon Dioxide 25.0 Anion Gap 8 BUN 10 Creatinine 0.88 Estimated GFR Greater than 89 Random Glucose 83 Calcium 7.9 L Phosphorus 2.4 L Magnesium 1.5 Total Creatine Kinase 65 Levetiracetam 7.0 L Tacrolimus 5.8 - Impressions ITS Impressions Head CT 10/06/17 17:20 CONCLUSION: 1. No acute findings in the brain. . Discharge Plan - Discharge Disposition Patient Disposition: /Home Health Service - Discharge Condition Condition: Stable - Discharge Order Discharge Orders: Discharge Order (Routine); Ordered 10/09/17 Ordered By: Van Krishnan - Discharge Details Discharge Comment: when cleared by PT - Physicians Team Primary Care Provider: [facility] [place],Shira Attending Provider: Van Krishnan Other Providers: Vipul Kelley MD, PhD ; bakari Nunes,Marques Galvez MD ; Nabeel Stark MD
[2017-10-09] MEDS: Magnesium Oxide 400 MG Tablet PO SCH (14:09)
== END 2017-10-09 15:21 | disposition home health service (06) ==
LOC: PHEDA 17:12 → PHED 17:12 → PH3 21:20
PROVIDERS: ADMIT Internal Medicine; ATTEND Internal Medicine